=== PATIENT | female | born 1950 | race Caucasian/White ===

== ENCOUNTER 2024-06-28 17:21 | Inpatient (IN) | payer MEDICAID, OTHER ==
[~2024-06-28] VITALS: Ht 168.9 cm; Wt 62.7 kg
[2024-06-28 18:40] LABS: Basophils # (auto) 0.1 10 ^3/uL (0-0.2); Basophils % (auto) 0.8 % (0.0-2.0); Eosinophils # (auto) 0.6 10 ^3/uL (0-0.8); Eosinophils % (auto) 4.4 % (0.0-7.0); Hematocrit 39.3 % (36.0-46.0); Hemoglobin 12.7 g/dL (12.2-16.2); Lymphocytes # (auto) 1.5 10 ^3/uL (0.4-5.4); Lymphocytes % (auto) 11.6 % (10.0-50.0); Mean Corpuscular Hemoglobin 29.6 pg (28.0-32.0); Mean Corpuscular Hgb Conc. 32.4 g/dL (32.0-36.0); Mean Corpuscular Volume 91.5 fL (80.0-100.0); Monocytes # (auto) 0.8 10 ^3/uL (0-1.3); Monocytes % (auto) 6.4 % (0.0-12.0); Neutrophils # (auto) 10.1 10 ^3/uL (1.6-8.6); Neutrophils % (auto) 76.8 % (37.0-80.0); Red Cell Distribution Width 14.1 % (11.8-14.3); White Blood Cell 13.1 10^3/uL (4.4-10.8)
[2024-06-28 18:57] LABS: Alanine Aminotransferase 31 U/L (7-40); Albumin 4.3 g/dL (3.2-4.8); Alkaline Phosphatase 194 U/L (46-116); Anion Gap 13 (5-15); Aspartate Aminotransferase 23 U/L (13-40); BUN/Creatinine Ratio 29.5 (10.0-20.0); Blood Urea Nitrogen 78 mg/dL (9-23); Calcium 10.3 mg/dL (8.7-10.4); Carbon Dioxide 14 mmol/L (20-30); Chloride 103 mmol/L (98-107); Glucose 221 mg/dL (74-106); Potassium 5.3 mmol/L (3.5-5.1); Sodium 130 mmol/L (136-145)
[2024-06-28 18:58] LABS: Bilirubin, Total 0.4 mg/dL (0.2-1.0); Total Protein 7.8 g/dL (5.7-8.2)
[2024-06-28 19:40] VITALS: PULSE 103; RESP 16; O2SAT 95
[2024-06-28] MEDS: ONDANSETRON HCL 4 MG/2 ML VIAL IV ONE (19:53)
[2024-06-28] MEDS: SODIUM CHLORIDE 0.9% 1,000 ML IV ONE (19:53)
[2024-06-28] MEDS: MORPHINE SULFATE INJ 2 MG/ml SYRG IV ONE (19:59)
[2024-06-28] MEDS ORDERED: DEXTROSE (50%) 50ML SYRG IV PRN (22:00)
[2024-06-28] MEDS: ACCU-CHEK COMFORT CURVE STRIP VI SCH (22:00)
[2024-06-28] MEDS ORDERED: DOCUSATE SOD 100 MG CAP PO PRN (22:00)
[2024-06-28] MEDS: SODIUM CHLOR 0.9% PF (SALINE LOCK) 10ML VIAL/SYR IV SCH (22:31)
[2024-06-28] MEDS: LACTATED RINGER'S 1,000 ML IV ONE (22:31)
[2024-06-28] MEDS: InsuLIN REG 1unit/0.01ml Soln (100units/ml) SC SCH (22:33)
[2024-06-28 22:43] LABS: Chloride 105 mmol/L (98-107); Potassium 5.1 mmol/L (3.5-5.1); Sodium 133 mmol/L (136-145)
[2024-06-28 22:44] LABS: Anion Gap 12 (5-15); Calcium 9.7 mg/dL (8.7-10.4); Carbon Dioxide 16 mmol/L (20-30)
[2024-06-28 22:49] LABS: Glucose 245 mg/dL (74-106)
[2024-06-28 23:15] LABS: Blood Urea Nitrogen 98 mg/dL (9-23)
[2024-06-28] MEDS: HYDROcodone-ACET 5/325MG TAB PO PRN (23:47)
[2024-06-29 04:00] VITALS: BP 115/63; PULSE 83; RESP 20; TEMP 97.7; O2SAT 100
[2024-06-29] MEDS ORDERED: INSREG3 (05:46)
[2024-06-29] MEDS ORDERED: PANT40T PO (05:46)
[2024-06-29] MEDS ORDERED: SPIR100T4 PO (05:46)
[2024-06-29] MEDS ORDERED: INSUINJ37 SC (05:46)
[2024-06-29] MEDS ORDERED: SULF1TAB75 PO (05:46)
[2024-06-29] MEDS ORDERED: [UNRECOGNIZED DRUG - CODE] (05:46)
[2024-06-29] MEDS ORDERED: HEP5000I SC (05:46)
[2024-06-29] MEDS ORDERED: ONDA-188 PO (06:11)
[2024-06-29] MEDS ORDERED: OXY5T PO (06:11)
[2024-06-29] MEDS ORDERED: SCOP1DIS9 TOP (06:11)
[2024-06-29 08:00] VITALS: BP 111/76; PULSE 99; RESP 17; TEMP 97.6; O2SAT 98
[2024-06-29] MEDS: SODIUM CHLORIDE 0.9% 1,000 ML IV SCH (12:41)
[2024-06-29 13:01] VITALS: BP 108/66; PULSE 102; RESP 17; TEMP 97.5; O2SAT 99
[2024-06-29 16:07] LABS: Basophils # (auto) 0.1 10 ^3/uL (0-0.2); Basophils % (auto) 0.9 % (0.0-2.0); Eosinophils # (auto) 0.6 10 ^3/uL (0-0.8); Lymphocytes # (auto) 1.2 10 ^3/uL (0.4-5.4); Lymphocytes % (auto) 10.4 % (10.0-50.0); Mean Corpuscular Hemoglobin 30.2 pg (28.0-32.0); Mean Corpuscular Hgb Conc. 33.3 g/dL (32.0-36.0); Mean Corpuscular Volume 90.6 fL (80.0-100.0); Monocytes # (auto) 0.7 10 ^3/uL (0-1.3); Monocytes % (auto) 6.1 % (0.0-12.0); Neutrophils # (auto) 8.6 10 ^3/uL (1.6-8.6); Neutrophils % (auto) 77.6 % (37.0-80.0); Red Blood Cells 3.64 10^6/uL (4.0-5.20); Red Cell Distribution Width 13.8 % (11.8-14.3); White Blood Cell 11.1 10^3/uL (4.4-10.8)
[2024-06-29 16:21] LABS: Chloride 109 mmol/L (98-107); Potassium 4.9 mmol/L (3.5-5.1); Sodium 137 mmol/L (136-145)
[2024-06-29 16:22] LABS: Anion Gap 8 (5-15); Calcium 9.4 mg/dL (8.7-10.4); Carbon Dioxide 20 mmol/L (20-30)
[2024-06-29 16:27] LABS: BUN/Creatinine Ratio 37.3 (10.0-20.0); Glucose 141 mg/dL (74-106)
[2024-06-29 16:28] LABS: Alanine Aminotransferase 22 U/L (7-40); Albumin 3.7 g/dL (3.2-4.8); Alkaline Phosphatase 142 U/L (46-116); Anion Gap 9 (5-15); Aspartate Aminotransferase 13 U/L (13-40); BUN/Creatinine Ratio 37.5 (10.0-20.0); Bilirubin, Total 0.4 mg/dL (0.2-1.0); Calcium 9.6 mg/dL (8.7-10.4); Carbon Dioxide 19 mmol/L (20-30); Chloride 110 mmol/L (98-107); Glucose 142 mg/dL (74-106); Magnesium 1.9 mg/dL (1.6-2.6); Potassium 4.8 mmol/L (3.5-5.1); Sodium 138 mmol/L (136-145); Total Protein 6.5 g/dL (5.7-8.2)
[2024-06-29 16:32] LABS: Blood Urea Nitrogen 63 mg/dL (9-23)
[2024-06-29 16:33] LABS: Blood Urea Nitrogen 63 mg/dL (9-23)
[2024-06-29 17:10] VITALS: BP 107/59; PULSE 92; RESP 17; TEMP 97.9; O2SAT 96
[2024-06-29] MEDS: ONDANSETRON HCL 4 MG/2 ML VIAL IV PRN (18:49)
[2024-06-29 21:00] VITALS: BP 103/64; PULSE 101; RESP 18; TEMP 98.3; O2SAT 95
[2024-06-30 06:14] LABS: Basophils # (auto) 0.1 10 ^3/uL (0-0.2); Basophils % (auto) 0.6 % (0.0-2.0); Eosinophils # (auto) 0.7 10 ^3/uL (0-0.8); Hematocrit 28.7 % (36.0-46.0); Hemoglobin 9.8 g/dL (12.2-16.2); Lymphocytes # (auto) 1.7 10 ^3/uL (0.4-5.4); Lymphocytes % (auto) 18.2 % (10.0-50.0); Mean Corpuscular Hemoglobin 30.7 pg (28.0-32.0); Mean Corpuscular Hgb Conc. 34.2 g/dL (32.0-36.0); Mean Corpuscular Volume 89.9 fL (80.0-100.0); Monocytes # (auto) 0.8 10 ^3/uL (0-1.3); Monocytes % (auto) 8.4 % (0.0-12.0); Neutrophils # (auto) 5.9 10 ^3/uL (1.6-8.6); Neutrophils % (auto) 64.8 % (37.0-80.0); Red Blood Cells 3.19 10^6/uL (4.0-5.20); Red Cell Distribution Width 13.7 % (11.8-14.3); White Blood Cell 9.1 10^3/uL (4.4-10.8)
[2024-06-30 06:22] LABS: Alanine Aminotransferase 17 U/L (7-40); Albumin 3.3 g/dL (3.2-4.8); Alkaline Phosphatase 127 U/L (46-116); Anion Gap 6 (5-15); Aspartate Aminotransferase 12 U/L (13-40); BUN/Creatinine Ratio 34.1 (10.0-20.0); Calcium 9.4 mg/dL (8.7-10.4); Carbon Dioxide 20 mmol/L (20-30); Chloride 112 mmol/L (98-107); Glucose 129 mg/dL (74-106); Magnesium 1.8 mg/dL (1.6-2.6); Sodium 138 mmol/L (136-145)
[2024-06-30 06:23] LABS: Bilirubin, Total 0.4 mg/dL (0.2-1.0)
[2024-06-30 06:27] LABS: Blood Urea Nitrogen 45 mg/dL (9-23)
[2024-06-30 08:30] VITALS: BP 105/64; PULSE 90; RESP 17; TEMP 98.3; O2SAT 97
[2024-06-30] MEDS ORDERED: TPN PER PHARMACY 0 ML IV SCH (11:00)
[2024-06-30] MEDS ORDERED: DEXTROSE (50%) 50ML SYRG IV SCH (11:30)
[2024-06-30] MEDS: ACCU-CHEK COMFORT CURVE STRIP VI SCH (12:09)
[2024-06-30] MEDS: InsuLIN REG 1unit/0.01ml Soln (100units/ml) SC SCH (12:13)
[2024-06-30 13:00] VITALS: BP 103/63; PULSE 97; RESP 17; TEMP 98.3; O2SAT 95
[2024-06-30 17:00] VITALS: BP 111/58; PULSE 99; RESP 17; TEMP 98.5; O2SAT 97
[2024-06-30] MEDS: TPN PER PHARMACY IV NR (20:08)
[2024-06-30 21:00] VITALS: BP 112/67; PULSE 96; RESP 19; TEMP 98.5; O2SAT 97
[2024-06-30] MEDS: ACETAMINOPHEN 325 MG TAB PO PRN (23:36)
[2024-06-30 23:53] LABS: Urine Blood Negative /uL (Negative); Urine Clarity Clear (Clear); Urine Color Light-Yellow (Yellow); Urine Protein, UAD Negative (Negative); Urine Specific Gravity 1.014 (1.001-1.035); Urine Urobilinogen Normal (Negative); Urine pH 5.5 (5.0-9.0)
[2024-07-01 01:00] VITALS: BP 97/58; PULSE 96; RESP 18; TEMP 98.6; O2SAT 96
[2024-07-01 05:00] VITALS: BP 108/62; PULSE 89; RESP 19; TEMP 98.2; O2SAT 100
[2024-07-01 06:40] LABS: Alanine Aminotransferase 17 U/L (7-40); Alkaline Phosphatase 101 U/L (46-116); Anion Gap 6 (5-15); Calcium 8.6 mg/dL (8.7-10.4); Carbon Dioxide 19 mmol/L (20-30); Chloride 111 mmol/L (98-107); Glucose 187 mg/dL (74-106); Magnesium 1.5 mg/dL (1.6-2.6); Potassium 4.4 mmol/L (3.5-5.1); Sodium 136 mmol/L (136-145)
[2024-07-01 06:41] LABS: Albumin 2.9 g/dL (3.2-4.8); Aspartate Aminotransferase 13 U/L (13-40); Bilirubin, Total 0.4 mg/dL (0.2-1.0); Phosphorus 2.4 mg/dL (2.4-5.1); Total Protein 5.5 g/dL (5.7-8.2)
[2024-07-01 06:47] LABS: Blood Urea Nitrogen 24 mg/dL (9-23)
[2024-07-01 07:12] LABS: BUN/Creatinine Ratio 23.5 (10.0-20.0)
[2024-07-01 08:00] VITALS: BP 128/73; PULSE 88; RESP 15; TEMP 98.2; O2SAT 92
[2024-07-01] MEDS: MAGNESIUM SULFATE 1GM/100ML 100 ML IV ONE (11:27)
[2024-07-01 12:02] VITALS: BP 103/65; PULSE 104; RESP 16; TEMP 98.4; O2SAT 98
[2024-07-01] MEDS: SODIUM PHOSPHATES 20 MEQ in SODIUM CHL 0.9% 100 ML IV ONE (12:54)
[2024-07-01 17:13] VITALS: BP 101/52; PULSE 93; RESP 16; TEMP 97.9; O2SAT 99
[2024-07-01] MEDS: TPN PER PHARMACY IV NR (20:12)
[2024-07-01 21:00] VITALS: BP 106/66; PULSE 90; RESP 18; TEMP 98.1; O2SAT 100
[2024-07-02 07:43] LABS: Alanine Aminotransferase 16 U/L (7-40); Aspartate Aminotransferase 11 U/L (13-40); Glucose 170 mg/dL (74-106); Magnesium 1.9 mg/dL (1.6-2.6); Phosphorus 2.8 mg/dL (2.4-5.1)
[2024-07-02 07:44] LABS: Bilirubin, Total 0.4 mg/dL (0.2-1.0); Chloride 108 mmol/L (98-107); Potassium 4.1 mmol/L (3.5-5.1); Sodium 136 mmol/L (136-145); Total Protein 5.4 g/dL (5.7-8.2)
[2024-07-02 07:49] LABS: Calcium 8.8 mg/dL (8.7-10.4)
[2024-07-02 07:53] LABS: Alkaline Phosphatase 98 U/L (46-116)
[2024-07-02 08:00] VITALS: PULSE 99; RESP 16; O2SAT 97
[2024-07-02 08:23] LABS: Anion Gap 8 (5-15); Carbon Dioxide 20 mmol/L (20-30)
[2024-07-02 08:24] LABS: BUN/Creatinine Ratio 25.8 (10.0-20.0); Blood Urea Nitrogen 23 mg/dL (9-23)
[2024-07-02 09:00] VITALS: BP 124/60; PULSE 99; RESP 16; TEMP 98.4; O2SAT 97
[2024-07-02 12:14] VITALS: BP 117/75; PULSE 61; RESP 18; TEMP 98.5; O2SAT 95
[2024-07-02 16:51] VITALS: BP 128/78; PULSE 79; RESP 18; TEMP 98.4; O2SAT 98
[2024-07-02] MEDS: TPN PER PHARMACY IV NR (20:00)
[2024-07-02 21:00] VITALS: BP 112/74; PULSE 77; RESP 16; TEMP 98; O2SAT 98
[2024-07-03] VITALS (7 sets, daily range): BP systolic 105–138; BP diastolic 67–89; PULSE 80–101; RESP 15–18; TEMP 97.9–98.7; O2SAT 94–100
[2024-07-03 06:54] LABS: Alanine Aminotransferase 19 U/L (7-40); Alkaline Phosphatase 109 U/L (46-116); Anion Gap 6 (5-15); BUN/Creatinine Ratio 27.6 (10.0-20.0); Blood Urea Nitrogen 24 mg/dL (9-23); Carbon Dioxide 22 mmol/L (20-30); Chloride 107 mmol/L (98-107); Glucose 188 mg/dL (74-106); Magnesium 1.9 mg/dL (1.6-2.6); Potassium 4.3 mmol/L (3.5-5.1); Sodium 135 mmol/L (136-145)
[2024-07-03 06:55] LABS: Albumin 3.2 g/dL (3.2-4.8); Aspartate Aminotransferase 13 U/L (13-40)
[2024-07-03 06:56] LABS: Bilirubin, Total 0.4 mg/dL (0.2-1.0); Phosphorus 3.2 mg/dL (2.4-5.1); Total Protein 5.7 g/dL (5.7-8.2)
[2024-07-03] MEDS ORDERED: PANC1CAP48 PO (11:08)
== END 2024-07-03 20:17 | disposition home or self-care (01) | DRG 640 ==
LOC: ER 17:21 → WEST WING 21:54 → OVERFLOW 21:54 → WEST WING 06-29 03:59
PROVIDERS: ADMIT Internal Medicine; ATTEND Internal Medicine Geriatric Medicine
DX: E86.0 Dehydration (principal); N17.0 Acute kidney failure with tubular necrosis; E87.1 Hypo-osmolality and hyponatremia; E87.5 Hyperkalemia; E11.65 Type 2 diabetes mellitus with hyperglycemia; Z90.411 Acquired partial absence of pancreas; Z85.07 Personal history of malignant neoplasm of pancreas; Z79.4 Long term (current) use of insulin; Z79.899 Other long term (current) drug therapy; Z80.1 Family history of malignant neoplasm of trachea, bronchus and lung; Z83.3 Family history of diabetes mellitus
CPT/HCPCS: 36415; 74176; 76775; 80048; 80053; 81003; 82962; 83735; 84100; 84478; 85025; 87081; 96365; 96375; G0378; J1815; J2405

== ENCOUNTER 2024-10-17 10:08 | Inpatient (IN) | payer OTHER ==
[~2024-10-17] VITALS: Ht 167.6 cm; Wt 61.4 kg
[~2024-10-17 10:08] MED LIST: INSREG3; INSUINJ37 SC; ONDA-188 PO; OXY5T PO; PANC1CAP48 PO; PANT40T PO; SCOP1DIS9 TOP; SPIR100T4 PO
--- NOTE | 2024-10-17 10:37 | ECG ---
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
[2024-10-17 10:50] VITALS: PULSE 130; RESP 18; O2SAT 100
[2024-10-17] MEDS: SODIUM CHLORIDE 0.9% 1,000 ML IV ONE ×3 (11:00→14:30)
--- NOTE | 2024-10-17 11:01 | ED.PDOC ---
GI ASSESSMENT HPI Comments 74-year-old female with past medical history of pancreatic cancer with status post Whipple's surgery on June 06, type 2 diabetes mellitus, pancreatic insufficiency presented with chief complaint of persistent nausea and not able to tolerate any food, associated vomiting which is "ugly green in color". She mentioned that she started chemotherapy for pancreatic cancer on October 05 and she had the symptoms after that. She called her oncologist yesterday, who asked her to come to the ED for the persistent nausea/vomiting. She also mentioned complaints of lightheadedness and dark brown colored urine. She currently denied any chest pain, palpitations, shortness for breath, headaches. She is alert and oriented. She was found to be tachycardic, EKG revealed SVT. She did not known that she had tachycardia and did not have any symptoms of palpitation. Past medical history Childhood murmur, pancreatic cancer with status post Whipple's surgery on June 06, type 2 diabetes mellitus, pancreatic insufficiency Past surgical history Whipple procedure done on June 06, 2024 Medication history pancreatic enzymes, ondasetron, pantoprazole Allergic history no known allergies ROS Constitutional: Lightheadedness No: Fever, Chills, Sweats, Weakness, Malaise, Other Respiratory: No: Cough, Dry, Shortness of breath, SOB with excertion, Wheezing, Hemoptysis, Pleuritic Pain, Sputum, Wheezing, Other Cardiovascular: No: Chest Pain, Palpitations, Orthopnea, Paroxysmal Noc. Dyspnea, Edema, Lt Headedness, Other Gastrointestinal: Intractable nausea/vomiting, left upper quadrant pain shifting positions, but no radiation to chest or back No: Nausea, Vomiting, Abdominal Pain, Diarrhea, Constipation, Melena, Hematochezia, Other Musculoskeletal: No: other, neck pain, shoulder pain, arm pain, back pain, hand pain, leg pain, foot pain Neurological:; No: Weakness, Numbness, Incoordination, Change in speech, Confusion, Seizures Examination General Appearance: Alert, Oriented X3, Cooperative, No acute distress HEENT: EOMI Respiratory: Clear to auscultation, Normal air movement Cardiovascular: Regular rate, Normal S1, Normal S2 Abdominal: Soft, abdomen nodule on palpation which is mobile, surgical scar seen Extremities: No cyanosis, No edema, Normal pulses, No tenderness/swelling Neuro: Normal speech and tone Attestation note: Dr. Arias: I was the supervising attending for this ED encounter. Please see the resident's notes. I was available for questions and consultations. I have personally seen and evaluated this patient. MDM: Patient presented with the above HPI.---cardiac---workup was initiated. patient was found with the above mentioned diagnosis. Patient was given: Fluids, Zofran Patient ED course and VS have been stabilized. Patient has been reassessed in the ED and remained in a stable condition. Patient SVT improved to not sinus rhythm with fluid hydration only. Pertinent incidental findings were discussed with the patient and/or family. Patient/family voices understanding and is agreeable with plan. Patient has been observed in the ED adequate length of time to insure improvement/stability. patient was admitted to the medicine team for further evaluation and treatment of their presentation. All the reports of any imaging studies that were ordered by myself were reviewed by myself. Chief Complaint: Nausea/Vomiting Time Seen by MD: 10:14 Primary Care Provider: OOA Reviewed Notes: Nurses Notes, Allergies Allergies: Coded Allergies: NO KNOWN ALLERGIES (Unverified , 06/28/24) Home Meds Active Scripts Potassium Chloride (Klor-Con 10) 10 Meq Tab, 10 MEQ PO DAILY, #10 TAB Prov:RAMA MAGALLON MD 10/24/24 Magnesium Oxide (MAGNESIUM OXIDE) 400 Mg Tab, 1 TAB PO DAILY, #10 TAB 0 Refills Prov:RAMA MAGALLON MD 10/24/24 Hydrocodone-Acetaminophen (Hydrocodone Bitartrate/AC 5-325 mg) 1 Tab Tab, 1 TAB PO Q6HP PRN, #30 TAB Prov:RAMA MAGALLON MD 10/24/24 Pancreatic Enzymes (Pancreaze) 16,800 [place], [address] UNT PO TID for 30 Days, #90 CAP Prov:RAMA MAGALLON MD 07/03/24 Reported Medications Ondansetron HCl (Ondansetron Hydrochloride) 4 Mg Tab, 1 TAB PO Q8HPRN PRN for NAUSEA / VOMITING 06/29/24 Pantoprazole Sodium Sesquihydr (Pantoprazole Sodium) 40 Mg Tab, 1 TAB PO DAILY 06/29/24 Discontinued Reported Medications Oxycodone Hcl (OXYCODONE HCL) 5 Mg Tb, 1 TAB PO Q8HPRN PRN for severe pain 06/29/24 Scopolamine (Scopolamine) 1 Mg/3 Days Dis, 1 PATCH TOP Q72HR 06/29/24 Spironolactone (Spironolactone) 100 Mg Tab, 50 MG PO DAILY 06/29/24 Insulin Glargine (Lantus Solostar) 100 Unit/Ml Inj, 6 UNITS SC HS 06/29/24 Insulin Regular (Human) (Humulin R) 100 Unit/Ml Inj 06/29/24 Information Source: Patient, Emergency Med Personnel Mode of Arrival: Wheelchair Past Medical History PAST MEDICAL HISTORY: Cancer 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 Was a procedure done?: No GI differential Dx Differential Diagnosis: Cholangitis, Cholecystitis, Gastritis/PUD, Gastroenteritis, Pancreatitis, UTI, Dehydration, Electrolyte Imbalance, Hypovolemia, Other Other Differential Diagnosis Includes but not limited to thyroid disease, encephalopathy, electrolyte abnormality, sepsis, infection, intracranial pathology, drug adverse effects, arrhythmia, kidney insufficiency, ACS, CVA, malignancy, anemia X-Ray, Labs, Meds, VS Vital Signs Date Time Temp Pulse Resp B/P (MAP) Pulse Ox O2 Delivery O2 Flow Rate FiO2 10/17/24 14:00 112 16 133/84 (100) 94 10/17/24 12:00 115 10/17/24 12:00 111 14 117/70 (86) 95 10/17/24 11:25 115 10/17/24 10:50 130 18 100 Room Air* 0 21 10/17/24 10:50 97.4 130 16 109/74 (86) 100 97.4 10/17/24 10:30 157 10/17/24 10:29 97.4 154 14 102/73 (83) 98 Lab Test 10/17/24 13:09 10/17/24 10:50 10/17/24 10:27 Range/Units Lactic Acid Level 1.4 2.5 *H 0.4-2.0 mmol/L Troponin I High Sensitivity 5 3 L </=34 ng/L White Blood Count 6.2 4.4-10.8 10^3/uL Red Blood Count 5.03 4.0-5.20 10^6/uL Hemoglobin 14.3 12.2-16.2 g/dL Hematocrit 42.7 36.0-46.0 % Mean Corpuscular Volume 84.7 80.0-100.0 fL Mean Corpuscular Hemoglobin 28.3 28.0-32.0 pg Mean Corpuscular Hemoglobin Concent 33.4 32.0-36.0 g/dL Red Cell Distribution Width 14.9 H 11.8-14.3 % Platelet Count 230 140-450 10^3/uL Mean Platelet Volume 9.0 6.9-10.8 fL Neutrophils (%) (Auto) 60.2 37.0-80.0 % Lymphocytes (%) (Auto) 22.6 10.0-50.0 % Monocytes (%) (Auto) 14.2 H 0.0-12.0 % Eosinophils (%) (Auto) 3.0 0.0-7.0 % Basophils (%) (Auto) 0.0 0.0-2.0 % Neutrophils # (Auto) 3.7 1.6-8.6 10 ^3/uL Lymphocytes # (Auto) 1.4 0.4-5.4 10 ^3/uL Monocytes # (Auto) 0.9 0-1.3 10 ^3/uL Eosinophils # (Auto) 0.2 0-0.8 10 ^3/uL Basophils # (Auto) 0 0-0.2 10 ^3/uL Nucleated Red Blood Cells 0.1 % Sodium Level 139 136-145 mmol/L Potassium Level 3.9 3.5-5.1 mmol/L Chloride Level 102 98-107 mmol/L Carbon Dioxide Level 22 20-31 mmol/L Anion Gap 15 5-15 Blood Urea Nitrogen 43 H 9-23 mg/dL Creatinine 1.56 H 0.550-1.02 mg/dL Glomerular Filtration Rate Calc 34 >90 mL/min BUN/Creatinine Ratio 27.6 H 10.0-20.0 Serum Glucose 124 H 74-106 mg/dL Calcium Level 10.0 8.7-10.4 mg/dL Magnesium Level 2.5 1.6-2.6 mg/dL Total Bilirubin 1.0 0.2-1.0 mg/dL Aspartate Amino Transferase (AST) 120 H 13-40 U/L Alanine Aminotransferase (ALT) 175 H 7-40 U/L Alkaline Phosphatase 110 46-116 U/L B-Type Natriuretic Peptide 10.55 0-100 pg/mL Total Protein 7.0 5.7-8.2 g/dL Albumin 4.0 3.2-4.8 g/dL Thyroid Stimulating Hormone (TSH) 1.44 0.55-4.78 uIU/mL POC Glucose 117 H 70-106 mg/dl [facility] [id number] [place] [address] Ph: [phone] DIAGNOSTIC IMAGING Diagnostic Imaging Report : [id number] Signed PATIENT: JARAD BEJARANO ACCT: [id number] UNIT: [id number] : 1950 LOC: ER ROOM / BED: / AGE / SEX: 74 / F ADM STATUS: REG ER SERVICE 1125 ORDERING PHYSICIAN: REILLY ARIAS DO PROCEDURE(s): ABPL - CT AB PEL WO CON-NO ORAL OR IV REASON: n/v ORDER NUMBER(s): [id number], ACCESSION NUMBER(s): [id number] CT ABDOMEN AND PELVIS WITHOUT CONTRAST CLINICAL HISTORY: n/v TECHNIQUE: Multiple contiguous axial images of the abdomen and pelvis without intravenous contrast. The images were reformatted degenerate coronal and sagitt al reconstructions. All CT scans at this medical facility are performed using dose modulation techniques as appropriate to a performed exam including the following:Automated exposure control was utilized; adjustment of the MA and/or KV according to patient size; and use of iterative reconstruction technique. Radiation Dose Information: CT Dose: CTDI volume is 6 mGy. Dose-length product is 351 mGy*cm Comparison: CT CT AB PEL WO CON-NO ORAL OR IV on DOS: 06/28/24 FINDINGS: Evaluation of the abdomen and pelvis is limited without intravenous contrast. Redemonstrated are postsurgical changes likely related to Whipple's procedure. There are again multiple surgical clips in the region of the head and uncinate of the pancreas. The visualized body and tail of the pancreas grossly appear unremarkable. There has been removal of the previously seen stent in the pancreatic duct. The gallbladder is surgically absent. There is stable pneumobilia which is likely postsurgical. There is diffuse fatty infiltration of the liver. The kidneys, adrenal glands, and spleen appear within normal limits. There is no gross evidence of abdominal lymphadenopathy. There is no free fluid or free air. There are anastomotic sutures seen in the small bowel. There are no dilated small or large bowel loops. There is a broad neck midline ventral hernia containing intra-abdominal fat and loop of small bowel. There is no evidence of bowel herniation or strangulation. The abdominal aorta and IVC appear within normal limits. The bladder appears unremarkable. The uterus is retroverted .. There is no gross evidence of a pelvic mass or fluid collection. Lung bases are clear. There is no acute osseous abnormality. There is scoliotic curvature of the thoracolumbar spine with multilevel degenerative changes. IMPRESSION: 1. Redemonstrated are postsurgical changes likely related to Whipple's procedure. There are again multiple surgical clips in the region of the head and uncinate process of pancreas. The visualized body and tail the pancreas grossly appear unremarkable. There has been removal of previously seen stent in the pancreatic duct. 2. Cholecystectomy with likely postsurgical pneumobilia. 3. Hepatic steatosis. 4. Broad neck midline ventral hernia containing intra-abdominal fat and loop of small bowel. There is no evidence of bowel obstruction or strangulation. HS:Y ATED BY: OLEG DEGROOT MD DICTATED DATE/TIME: 10/17/241254 SIGNED BY: OLEG DEGROOT MD SIGNED DATE/TIME: 10/17/24 125 CC: [place] [id number] Ph: [phone] DIAGNOSTIC IMAGING Diagnostic Imaging Report : [id number] Signed PATIENT: JARAD BEJARANO ACCT: [id number] UNIT: [id number] : 1950 LOC: ER ROOM / BED: / AGE / SEX: 74 / F ADM STATUS: REG ER SERVICE 1125 ORDERING PHYSICIAN: REILLY ARIAS DO PROCEDURE(s): ABPL - CT AB PEL WO CON-NO ORAL OR IV REASON: n/v ORDER NUMBER(s): [id number], ACCESSION NUMBER(s): [id number] CT ABDOMEN AND PELVIS WITHOUT CONTRAST CLINICAL HISTORY: n/v TECHNIQUE: Multiple contiguous axial images of the abdomen and pelvis without intravenous contrast. The images were reformatted degenerate coronal and sagittal reconstructions. All CT scans at this medical facility are performed using dose modulation techniques as appropriate to a performed exam including the following:Automated exposure control was utilized; adjustment of the MA and/or KV according to patient size; and use of iterative reconstruction technique. Radiation Dose Information: CT Dose: CTDI volume is 6 mGy. Dose-length product is 351 mGy*cm Comparison: CT CT AB PEL WO CON-NO ORAL OR IV on DOS: 06/28/24 FINDINGS: Evaluation of the abdomen and pelvis is limited without intravenous contrast. Redemonstrated are postsurgical changes likely related to Whipple's procedure. There are again multiple surgical clips in the region of the head and uncinate of the pancreas. The visualized body and tail of the pancreas grossly appear unremarkable. There has been removal of the previously seen stent in the pancreatic duct. The gallbladder is surgically absent. There is stable pneumobilia which is likely postsurgical. There is diffuse fatty infiltration of the liver. The kidneys, adrenal glands, and spleen appear within normal limits. There is no gross evidence of abdominal lymphadenopathy. There is no free fluid or free air. There are anastomotic sutures seen in the small bowel. There are no dilated small or large bowel loops. There is a broad neck midline ventral hernia containing intra-abdominal fat and loop of small bowel. There is no evidence of bowel herniation or strangulation. The abdominal aorta and IVC appear within normal limits. The bladder appears unremarkable. The uterus is retroverted .. There is no gross evidence of a pelvic mass or fluid collection. Lung bases are clear. There is no acute osseous abnormality. There is scoliotic curvature of the thoracolumbar spine with multilevel degenerative changes. IMPRESSION: 1. Redemonstrated are postsurgical changes likely related to Whipple's procedure. There are again multiple surgical clips in the region of the head and uncinate process of pancreas. The visualized body and tail the pancreas grossly appear unremarkable. There has been removal of previously seen stent in the pancreatic duct. 2. Cholecystectomy with likely postsurgical pneumobilia. 3. Hepatic steatosis. 4. Broad neck midline ventral hernia containing intra-abdominal fat and loop of small bowel. There is no evidence of bowel obstruction or strangulation. HS:Y ATED BY: LOEG DEGROOT MD DICTATED DATE/TIME: 10/17/24 1255 SIGNED BY: OLEG DEGROOT MD SIGNED DATE/TIME: 10/17/24 125 CC: Time of 1ST Reevaluation: 12:44 (Patient's heart rate is sinus rhythm at this time after fluid hydration. Lactic acid is elevated we will add an additional normal saline bolus.) Reevaluation 1ST: Improved Patient Education/Counseling: Diagnosis, Treatment Family Education/Counseling: No Family Present Comments Patient presented with the above HPI.---dehydration, nausea and vomiting---workup was initiated. Patient's initial heart rate was in 150, EKG initially showed tachycardia with regular narrow complex QRS suggestive of SVT, was given IV fluids, after that heart rate improved to 90s and 100s. Patient was given: Fluids, Zofran, patient's lactic acid was elevated so We gave her Rocephin. Patient ED course and VS have been stabilized. Patient has been reassessed in the ED and remained in a stable condition. Pertinent incidental findings were discussed with the patient and/or family. Patient/family voices understanding and is agreeable with plan. Patient has been observed in the ED adequate length of time to insure improvement/stability. patient was admitted to the medicine team for further evaluation and treatment of their presentation. Patient needs hydration and further monitoring for tachycardia. All the reports of any imaging studies that were ordered by myself were reviewed by myself. Departure 1 Departure Time of Disposition: 11:28 Impression: Primary Impression: Nausea & vomiting Additional Impressions: SVT (supraventricular tachycardia) Dehydration Disposition: ADMITTED INPATIENT Admit to: Tele Condition: Guarded e-Prescriptions Potassium Chloride (Klor-Con 10) 10 Meq Tab 10 MEQ PO DAILY, #10 TAB Prov: RAMA MAGALLON MD 10/24/24 Magnesium Oxide (MAGNESIUM OXIDE) 400 Mg Tab 1 TAB PO DAILY, #10 TAB 0 Refills Prov: RAMA MAGALLON MD 10/24/24 Hydrocodone-Acetaminophen (Hydrocodone Bitartrate/AC 5-325 mg) 1 Tab Tab 1 TAB PO Q6HP PRN, #30 TAB Prov: RAMA MAGALLON MD 10/24/24 Discharged With: Self Critical Care Note Critical Care Time?: Yes (45 min-critical care time only) Stability Stability form required: No Heart Score Heart Score: Heart Score Response (Comments) Value History Slightly Suspicious 0 EKG Normal 0 Age >65 2 Risk Factors 1 or 2 risk factors 1 Troponin Normal limit 0 Total 3 SADAF RAMAN Oct 17, 2024 11:01 REILLY ARIAS DO Oct 17, 2024 12:45
[2024-10-17] MEDS: ONDANSETRON HCL 4 MG/2 ML VIAL IV ONE (11:06)
[2024-10-17] MEDS: ONDANSETRON HCL 4 MG/2 ML VIAL ONE (11:06)
[2024-10-17 11:14] LABS: Basophils # (auto) 0 10 ^3/uL (0-0.2); Eosinophils # (auto) 0.2 10 ^3/uL (0-0.8); Hematocrit 42.7 % (36.0-46.0); Hemoglobin 14.3 g/dL (12.2-16.2); Lymphocytes # (auto) 1.4 10 ^3/uL (0.4-5.4); Lymphocytes % (auto) 22.6 % (10.0-50.0); Mean Corpuscular Hemoglobin 28.3 pg (28.0-32.0); Mean Corpuscular Hgb Conc. 33.4 g/dL (32.0-36.0); Mean Corpuscular Volume 84.7 fL (80.0-100.0); Monocytes # (auto) 0.9 10 ^3/uL (0-1.3); Monocytes % (auto) 14.2 % (0.0-12.0); Neutrophils # (auto) 3.7 10 ^3/uL (1.6-8.6); Neutrophils % (auto) 60.2 % (37.0-80.0); Nucleated Red Blood Cells % 0.1 %; Platelet Count (auto) 230 10^3/uL (140-450); Red Blood Cells 5.03 10^6/uL (4.0-5.20); Red Cell Distribution Width 14.9 % (11.8-14.3); White Blood Cell 6.2 10^3/uL (4.4-10.8)
--- NOTE | 2024-10-17 11:25 | DVH ---
CHEST RADIOGRAPH Indication: SVT Technique: Single frontal view of the chest was obtained Comparison: None FINDINGS: Lines and Tubes: Right chest port catheter. Lungs: No focal consolidation. Pleura: No effusion. No pneumothorax. Cardiomediastinal contours: Unremarkable Bones: No acute osseous abnormality. IMPRESSION: No acute cardiopulmonary disease.
[2024-10-17 11:47] LABS: Alanine Aminotransferase 175 U/L (7-40); Alkaline Phosphatase 110 U/L (46-116); Anion Gap 15 (5-15); Aspartate Aminotransferase 120 U/L (13-40); BUN/Creatinine Ratio 27.6 (10.0-20.0); Blood Urea Nitrogen 43 mg/dL (9-23); Carbon Dioxide 22 mmol/L (20-31); Chloride 102 mmol/L (98-107); Glucose 124 mg/dL (74-106); Magnesium 2.5 mg/dL (1.6-2.6); Potassium 3.9 mmol/L (3.5-5.1); Sodium 139 mmol/L (136-145)
[2024-10-17 12:01] LABS: Lactic Acid w/Reflex 2.5 mmol/L (0.4-2.0)
--- NOTE | 2024-10-17 12:10 | ECG ---
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
--- NOTE | 2024-10-17 12:56 | DVH ---
CT ABDOMEN AND PELVIS WITHOUT CONTRAST CLINICAL HISTORY: n/v TECHNIQUE: Multiple contiguous axial images of the abdomen and pelvis without intravenous contrast. The images were reformatted degenerate coronal and sagittal reconstructions. All CT scans at this medical facility are performed using dose modulation techniques as appropriate t o a performed exam including the following:Automated exposure control was utilized; adjustment of the MA and/or KV according to patient size; and use of iterative reconstruction technique. Radiation Dose Information: CT Dose: CTDI volume is 6 mGy. Dose-length product is 351 mGy*cm Comparison: CT CT AB PEL WO CON-NO ORAL OR IV on DOS: 06/28/24 FINDINGS: Evaluation of the abdomen and pelvis is limited without intravenous contrast. Redemonstrated are postsurgical changes likely related to Whipple's procedure. There are again multi ple surgical clips in the region of the head and uncinate of the pancreas. The visualized body and ta il of the pancreas grossly appear unremarkable. There has been removal of the previously seen stent i n the pancreatic duct. The gallbladder is surgically absent. There is stable pneumobilia which is likely postsurgical. Ther e is diffuse fatty infiltration of the liver. The kidneys, adrenal glands, and spleen appear within normal limits. There is no gross evidence of abdominal lymphadenopathy. There is no free fluid or free air. There are anastomotic sutures seen in the small bowel. There are no dilated small or large bowel loop s. There is a broad neck midline ventral hernia containing intra-abdominal fat and loop of small madhavi l. There is no evidence of bowel herniation or strangulation. The abdominal aorta and IVC appear within normal limits. The bladder appears unremarkable. The uterus is retroverted .. There is no gross evidence of a pelvi c mass or fluid collection. Lung bases are clear. There is no acute osseous abnormality. There is scoliotic curvature of the thoracolumbar spine with m ultilevel degenerative changes. IMPRESSION: 1. Redemonstrated are postsurgical changes likely related to Whipple's procedure. There are again mul tiple surgical clips in the region of the head and uncinate process of pancreas. The visualized body and tail the pancreas grossly appear unremarkable. There has been removal of previously seen stent in the pancreatic duct. 2. Cholecystectomy with likely postsurgical pneumobilia. 3. Hepatic steatosis. 4. Broad neck midline ventral hernia containing intra-abdominal fat and loop of small bowel. There i s no evidence of bowel obstruction or strangulation. HS:Y
--- NOTE | 2024-10-17 14:29 | DVHHP2 ---
History of Present Illness Reason for Visit: Abdominal pain and nausea and vomiting History of Present Illness 74-year-old female with a history of pancreatic cancer status post Whipple surgery in May of this year, type 2 diabetes, pancreatic insufficiency who just started chemotherapy 3 weeks ago she had the 1st regimen and since then she started having abdominal pain nausea and vomiting. She has not been able to keep food down. She is tachycardic now blood pressure is on low side She appears dehydrated and dry in her mucous membranes GI: Other (Pancreatic cancer) Endocrine: Diabetes Past Surgical History: Other (Whipple) Review of Systems Allergies: Coded Allergies: NO KNOWN ALLERGIES (Unverified , 06/28/24) Medications Current Medications Medications Dose Ordered Sig/Shelley Route Start Time Stop Time Status Last Admin Dose Admin Nitroglycerin 0.4 mg Q5MINP PRN SL 10/17/24 14:30 UNV Morphine Sulfate 2 mg Q30M PRN IV 10/17/24 14:30 UNV Exam Vital Signs Vital Signs Date Time Temp Pulse Resp B/P (MAP) Pulse Ox O2 Delivery O2 Flow Rate FiO2 10/17/24 14:00 112 16 133/84 (100) 94 10/17/24 10:50 Room Air* 0 21 10/17/24 10:50 97.4 97.4 General Appearance: Alert, Oriented X3, Cooperative, mild distress Respiratory: Clear to auscultation Cardiovascular: Regular rate, Other (Tachycardic) Abdominal: Normal bowel sounds, Soft, Other (Generalized tenderness) Extremities: No edema Labs/Xrays Labs Test 10/17/24 13:09 10/17/24 10:50 10/17/24 10:27 Range/Units Lactic Acid Level 1.4 0.4-2.0 mmol/L Troponin I High Sensitivity 5 </=34 ng/L White Blood Count 6.2 4.4-10.8 10^3/uL Red Blood Count 5.03 4.0-5.20 10^6/uL Hemoglobin 14.3 12.2-16.2 g/dL Hematocrit 42.7 36.0-46.0 % Mean Corpuscular Volume 84.7 80.0-100.0 fL Mean Corpuscular Hemoglobin 28.3 28.0-32.0 pg Mean Corpuscular Hemoglobin Concent 33.4 32.0-36.0 g/dL Red Cell Distribution Width 14.9 H 11.8-14.3 % Platelet Count 230 140-450 10^3/uL Mean Platelet Volume 9.0 6.9-10.8 fL Neutrophils (%) (Auto) 60.2 37.0-80.0 % Lymphocytes (%) (Auto) 22.6 10.0-50.0 % Monocytes (%) (Auto) 14.2 H 0.0-12.0 % Eosinophils (%) (Auto) 3.0 0.0-7.0 % Basophils (%) (Auto) 0.0 0.0-2.0 % Neutrophils # (Auto) 3.7 1.6-8.6 10 ^3/uL Lymphocytes # (Auto) 1.4 0.4-5.4 10 ^3/uL Monocytes # (Auto) 0.9 0-1.3 10 ^3/uL Eosinophils # (Auto) 0.2 0-0.8 10 ^3/uL Basophils # (Auto) 0 0-0.2 10 ^3/uL Nucleated Red Blood Cells 0.1 % Sodium Level 139 136-145 mmol/L Potassium Level 3.9 3.5-5.1 mmol/L Chloride Level 102 98-107 mmol/L Carbon Dioxide Level 22 20-31 mmol/L Anion Gap 15 5-15 Blood Urea Nitrogen 43 H 9-23 mg/dL Creatinine 1.56 H 0.550-1.02 mg/dL Glomerular Filtration Rate Calc 34 >90 mL/min BUN/Creatinine Ratio 27.6 H 10.0-20.0 Serum Glucose 124 H 74-106 mg/dL Calcium Level 10.0 8.7-10.4 mg/dL Magnesium Level 2.5 1.6-2.6 mg/dL Total Bilirubin 1.0 0.2-1.0 mg/dL Aspartate Amino Transferase (AST) 120 H 13-40 U/L Alanine Aminotransferase (ALT) 175 H 7-40 U/L Alkaline Phosphatase 110 46-116 U/L B-Type Natriuretic Peptide 10.55 0-100 pg/mL Total Protein 7.0 5.7-8.2 g/dL Albumin 4.0 3.2-4.8 g/dL Thyroid Stimulating Hormone (TSH) 1.44 0.55-4.78 uIU/mL POC Glucose 117 H 70-106 mg/dl Assessment/Plan Assessment/Plan Dehydration Acute kidney injury due to dehydration, hemodynamically mediated Abdominal pain Pancreatic cancer Intractable nausea and vomiting Type 2 diabetes Pancreatic insufficiency Recent Whipple surgery Sinus tachycardia due to dehydration Plan Give IV fluids Glucerna supplement Pain control with Dilaudid p.r.n. Zofran p.r.n. Pepcid IV Full code Discussed with the family at the bedside Plan discussed with: Patient My Orders Orders - RAMA MAGALLON MD Procedure Category Date Status Time Admit ADMIT 10/17/24 Transmitted 14:[address] [facility] 10/17/24 Logged Sublingual (Ntrostat 14:[address] [facility] 10/17/24 Logged Injection 14:30 Stat Ekg For Chest [facility] 10/17/24 In Process Pain 14:16 Notify Md Of Changes [facility] 10/17/24 In Process From Base 14:16 Customer Advocate For [facility] 10/17/24 In Process 24 Hours 14:16 Emergency Dysrhythmia [facility] 10/17/24 In Process Protocol 14:16 Rhythm Strips Once [facility] 10/17/24 In Process Every Shift 14:16 Oxygen By Nasal RT 10/17/24 Transmitted Cannula 14:16 Date of Service: Oct 17, 2024 Billing Provider: RAMA MAGALLON MD Common Visit Codes: [id number] INP/OBS CARE (HIGH) RAMA MAGALLON MD Oct 17, 2024 14:29
[2024-10-17] MEDS ORDERED: MORPHINE SULFATE INJ 2 MG/ml SYRG IV PRN (14:30)
[2024-10-17] MEDS ORDERED: DEXTROSE (50%) 50ML SYRG IV PRN (14:30)
[2024-10-17] MEDS ORDERED: NITROGLYCERIN 0.4 MG SL TAB SL PRN (14:30)
[2024-10-17] MEDS: FAMOTIDINE (10MG/ML) 2ML VL IV ONE (15:47)
[2024-10-17] MEDS: InsuLIN REG 1unit/0.01ml Soln (100units/ml) SC SCH (17:00)
[2024-10-17] MEDS: ACCU-CHEK COMFORT CURVE STRIP VI SCH (17:03)
[2024-10-17 18:43] LABS: Urine Bacteria FEW /hpf (None Seen); Urine Blood Negative /uL (Negative); Urine Clarity Turbid (Clear); Urine Color Yellow (Yellow); Urine Protein, UAD 1+ (Negative); Urine Specific Gravity 1.024 (1.001-1.035); Urine Urobilinogen Normal (Negative); Urine WBC 1 /hpf (0 - 5)
[2024-10-17 20:19] VITALS: PULSE 96; RESP 18; O2SAT 94
[2024-10-17 20:46] VITALS: BP 125/63; PULSE 95; RESP 16; RESP 18; TEMP 98; O2SAT 97
[2024-10-18] VITALS (8 sets, daily range): BP systolic 123–132; BP diastolic 72–83; PULSE 94–125; RESP 16–18; TEMP 98–98.5; O2SAT 94–96
[2024-10-18] MEDS: ONDANSETRON HCL 4 MG/2 ML VIAL IV PRN (03:53)
[2024-10-18] MEDS: HYDROcodone-ACET 5/325MG TAB PO PRN (03:54)
[2024-10-18 06:11] LABS: Alanine Aminotransferase 114 U/L (7-40); Albumin 2.9 g/dL (3.2-4.8); Alkaline Phosphatase 78 U/L (46-116); Anion Gap 10 (5-15); Aspartate Aminotransferase 65 U/L (13-40); Calcium 8.2 mg/dL (8.7-10.4); Carbon Dioxide 21 mmol/L (20-31); Glucose 116 mg/dL (74-106); Potassium 2.9 mmol/L (3.5-5.1); Sodium 144 mmol/L (136-145)
[2024-10-18 06:12] LABS: BUN/Creatinine Ratio 31.9 (10.0-20.0); Lipase 20 U/L (12-53)
[2024-10-18 06:14] LABS: Bilirubin, Total 0.6 mg/dL (0.2-1.0); Total Protein 4.9 g/dL (5.7-8.2)
[2024-10-18 06:16] LABS: Blood Urea Nitrogen 29 mg/dL (9-23); Chloride 113 mmol/L (98-107)
[2024-10-18] MEDS: POTASSIUM CHL 20 Meq TABLET PO ONE (08:50)
[2024-10-18] MEDS: FAMOTIDINE (10MG/ML) 2ML VL IV SCH (09:00)
[2024-10-18 09:23] LABS: Hematocrit 34.2 % (36.0-46.0); Hemoglobin 11.4 g/dL (12.2-16.2); Mean Corpuscular Hemoglobin 28.4 pg (28.0-32.0); Mean Corpuscular Hgb Conc. 33.3 g/dL (32.0-36.0); Mean Corpuscular Volume 85.3 fL (80.0-100.0); Platelet Count (auto) 202 10^3/uL (140-450); Red Blood Cells 4.01 10^6/uL (4.0-5.20); Red Cell Distribution Width 14.4 % (11.8-14.3); White Blood Cell 4.4 10^3/uL (4.4-10.8)
[2024-10-18 09:25] LABS: Basophils % (manual) 0 (0.0-2.0); Blast Cells 0; Metamyelocytes % 0; Myelocytes % 0; Promyelocytes % 0; Reactive Lymphocytes 0
[2024-10-18 09:53] LABS: Band Neutrophils % (manual) 4; Eosinophils % (manual) 1 (0-7); Lymphocytes % (manual) 20 (10.0-50.0); Monocytes % (manual) 3 (0-12)
[2024-10-18 09:54] LABS: Platelet Estimate Adequate; RBC Morphology Normal
[2024-10-18] MEDS: LOPERAMIDE HCL 2 MG CAP/TAB PO PRN (21:35)
[2024-10-19] VITALS (8 sets, daily range): BP systolic 103–126; BP diastolic 71–78; PULSE 120–130; RESP 16–18; TEMP 97.2–98.2; O2SAT 95–96
--- NOTE | 2024-10-19 14:25 | DVHPN2 ---
Subjective Complains of diarrhea Still having abdominal pain Getting dizzy and lightheaded when she stands and walks Changes from previous H/P or p: Changes Objective Vitals Vital Signs Date Time Temp Pulse Resp B/P (MAP) Pulse Ox O2 Delivery O2 Flow Rate FiO2 10/19/24 13:00 97.2 125 17 126/75 (92) 95 97.2 10/19/24 08:00 Room Air* 0 21 Intake/Output Intake and Output 10/19/24 07:00 Intake Total 1295 ml Output Total 1 ml Balance 1294 ml Intake Oral 1295 ml Output Urine Total 1 ml # Voids 3 # Bowel Movements 5 General Appearance: Alert, Oriented X3 Lungs: Clear to auscultation, Normal air movement Cardiovascular: Regular rate, Normal S1, Normal S2 Abdomen: Normal bowel sounds, Soft, No tenderness Extremities: No edema Medications Current Medications Medications Dose Ordered Sig/Shelley Route Start Time Stop Time Status Last Admin Dose Admin Nitroglycerin 0.4 mg Q5MINP PRN SL 10/17/24 14:30 Morphine Sulfate 2 mg Q30M PRN IV 10/17/24 14:30 Famotidine 20 mg DAILY IV 10/18/24 10:00 10/19/24 09:01 20 MG Diagnostic Test (Pha) 1 strip ACHS 10/17/24 17:00 10/19/24 11:30 1 STRIP Insulin Human Regular ACHS SC 10/17/24 17:00 Dextrose 50 ml UD PRN IV 10/17/24 14:30 Acetaminophen/ Hydrocodone Bitart 1 tab Q6HPRN PRN PO 10/18/24 03:45 10/19/24 09:02 1 TAB Ondansetron HCl 4 mg Q6HPRN PRN IV 10/18/24 03:45 10/18/24 21:34 4 MG Loperamide HCl 2 mg PRN PRN PO 10/18/24 21:00 10/19/24 09:01 2 MG Laboratory Results Laboratory Tests 10/18/24 04:50 10/18/24 08:41 Urinalysis Test 10/17/24 17:45 Urine Color Yellow (Yellow) Urine Clarity Turbid (Clear) H Urine pH 6.0 (5.0-9.0) Urine Specific [place] 1.024 (1.001-1.035) Urine Protein 1+ (Negative) H Urine Ketones 1+ (Negative) H Urine Blood Negative /uL (Negative) Urine Nitrite Negative (Negative) Urine Bilirubin Negative (Negative) Urine Urobilinogen Normal mg/dL (Negative) Urine Leukocyte Esterase Negative /uL (Negative) Urine RBC 3 /hpf (0 - 4) Urine WBC 1 /hpf (0 - 5) Urine Squamous Epithelial Cells Mod /hpf (<5) Urine Bacteria Few /hpf (None Seen) H Urine Glucose Normal mg/dL (Normal) Microbiology Microbiology Date/Time Source Procedure Growth Status 10/18/24 03:15 Stool Clostridium difficile Toxin Assay - Final Complete Assessment/Plan Assessment/Plan Dehydration Acute kidney injury due to dehydration, hemodynamically mediated Abdominal pain Pancreatic cancer Intractable nausea and vomiting Type 2 diabetes Pancreatic insufficiency Recent Whipple surgery Sinus tachycardia due to dehydration Plan 10/18/2024: Give IV fluids Glucerna supplement Pain control with Dilaudid p.r.n. Zofran p.r.n. Pepcid IV Full code Discussed with the family at the bedside 10/19/2024: Add pancreatic enzymes Continue IV fluids Check the potassium and magnesium and replace as needed Pain management as needed Plan discussed with: Patient My Orders Orders - RAMA MAGALLON MD Procedure Category Date Status Time * Dietary Consult CONS 10/18/24 Transmitted 19:08 * Children Counselor CONS 10/19/24 Transmitted Consult Potassium LAB 10/19/24 Logged 14:11 Magnesium LAB 10/19/24 Logged 14:11 Pancreatic Enzymes PHA 10/19/24 Transmitted Capsule (Pancreaze Ca 18:00 Complete Blood Count LAB 10/20/24 Verified 04:00 Magnesium LAB 10/20/24 Verified 04:00 Comprehensive LAB 10/20/24 Verified Metabolic Panel 04:00 Date of Service: Oct 19, 2024 Billing Provider: RAMA MAGALLON MD Common Visit Codes: NOT BILLABLE RAMA MAGALLON MD Oct 19, 2024 14:25
[2024-10-19 15:51] LABS: Magnesium 1.9 mg/dL (1.6-2.6)
[2024-10-19 15:55] LABS: Potassium 2.5 mmol/L (3.5-5.1)
[2024-10-19] MEDS: MAGNESIUM SULFATE 1GM/100ML 100 ML IV SCH (16:52)
[2024-10-19] MEDS: POTASSIUM EFFERVESENT TAB 25 MEQ PO ONE (17:29)
[2024-10-19] MEDS: PANCREATIC ENZYMES 4200 UNIT CAP PO SCH (17:31)
[2024-10-20] VITALS (8 sets, daily range): BP systolic 105–127; BP diastolic 68–83; PULSE 117–150; RESP 16–20; TEMP 97.3–98.3; O2SAT 16–98
[2024-10-20 05:44] LABS: Basophils # (auto) 0 10 ^3/uL (0-0.2); Basophils % (auto) 0.1 % (0.0-2.0); Eosinophils # (auto) 0.3 10 ^3/uL (0-0.8); Eosinophils % (auto) 5.2 % (0.0-7.0); Hematocrit 35.3 % (36.0-46.0); Lymphocytes # (auto) 1.5 10 ^3/uL (0.4-5.4); Lymphocytes % (auto) 29.5 % (10.0-50.0); Mean Corpuscular Hemoglobin 28.6 pg (28.0-32.0); Mean Corpuscular Hgb Conc. 33.9 g/dL (32.0-36.0); Mean Corpuscular Volume 84.2 fL (80.0-100.0); Monocytes # (auto) 0.5 10 ^3/uL (0-1.3); Monocytes % (auto) 9.9 % (0.0-12.0); Neutrophils # (auto) 2.8 10 ^3/uL (1.6-8.6); Neutrophils % (auto) 55.3 % (37.0-80.0); Platelet Count (auto) 210 10^3/uL (140-450); Red Blood Cells 4.19 10^6/uL (4.0-5.20); White Blood Cell 5.1 10^3/uL (4.4-10.8)
[2024-10-20 06:04] LABS: Alanine Aminotransferase 62 U/L (7-40); Alkaline Phosphatase 83 U/L (46-116); Anion Gap 10 (5-15); BUN/Creatinine Ratio 14.1 (10.0-20.0); Blood Urea Nitrogen 12 mg/dL (9-23); Calcium 8.1 mg/dL (8.7-10.4); Carbon Dioxide 21 mmol/L (20-31); Chloride 113 mmol/L (98-107); Glucose 115 mg/dL (74-106); Potassium 2.9 mmol/L (3.5-5.1); Sodium 144 mmol/L (136-145)
[2024-10-20 06:05] LABS: Magnesium 2.4 mg/dL (1.6-2.6)
[2024-10-20 06:06] LABS: Albumin 2.7 g/dL (3.2-4.8); Aspartate Aminotransferase 24 U/L (13-40)
[2024-10-20 06:07] LABS: Bilirubin, Total 0.5 mg/dL (0.2-1.0); Total Protein 4.7 g/dL (5.7-8.2)
--- NOTE | 2024-10-20 11:07 | DVHPN2 ---
Subjective She is still complaining of abdominal pain and diarrhea Potassium is still low She is not having too much p.o. intake Changes from previous H/P or p: Changes Objective Vitals Vital Signs Date Time Temp Pulse Resp B/P (MAP) Pulse Ox O2 Delivery O2 Flow Rate FiO2 10/20/24 08:50 98.3 119 17 113/79 (90) 96 98.3 10/20/24 07:30 Room Air* 0 21 Intake/Output Intake and Output 10/20/24 07:00 Intake Total 1218 ml Balance 1218 ml Intake Oral 1018 ml IV Total 200 ml # Voids 4 # Bowel Movements 4 General Appearance: Alert, Oriented X3 Lungs: Clear to auscultation, Normal air movement Cardiovascular: Regular rate, Normal S1, Normal S2 Abdomen: Normal bowel sounds, Soft, No tenderness Extremities: No edema Medications Current Medications Medications Dose Ordered Sig/Shelley Route Start Time Stop Time Status Last Admin Dose Admin Nitroglycerin 0.4 mg Q5MINP PRN SL 10/17/24 14:30 Morphine Sulfate 2 mg Q30M PRN IV 10/17/24 14:30 Famotidine 20 mg DAILY IV 10/18/24 10:00 10/20/24 08:36 20 MG Diagnostic Test (Pha) 1 strip ACHS 10/17/24 17:00 10/20/24 05:53 1 STRIP Insulin Human Regular ACHS SC 10/17/24 17:00 10/19/24 21:25 2 UNITS Dextrose 50 ml UD PRN IV 10/17/24 14:30 Acetaminophen/ Hydrocodone Bitart 1 tab Q6HPRN PRN PO 10/18/24 03:45 10/20/24 08:37 1 TAB Ondansetron HCl 4 mg Q6HPRN PRN IV 10/18/24 03:45 10/18/24 21:34 4 MG Loperamide HCl 2 mg PRN PRN PO 10/18/24 21:00 10/20/24 08:49 2 MG Proteolytic Enzymes 12,600 unit TIDWM PO 10/19/24 18:00 10/20/24 08:38 12,600 UNIT Laboratory Results Laboratory Tests 10/20/24 04:44 Chemistry Test 10/19/24 15:10 10/20/24 04:44 Magnesium Level 1.9 mg/dL (1.6-2.6) 2.4 mg/dL (1.6-2.6) Albumin 2.7 g/dL (3.2-4.8) L Calcium Level 8.1 mg/dL (8.7-10.4) L Total Protein 4.7 g/dL (5.7-8.2) L LFT Test 10/20/24 04:44 Alanine Aminotransferase (ALT) 62 U/L (7-40) H Alkaline Phosphatase 83 U/L (46-116) Aspartate Amino Transferase (AST) 24 U/L (13-40) Total Bilirubin 0.5 mg/dL (0.2-1.0) Urinalysis Test 10/17/24 17:45 Urine Color Yellow (Yellow) Urine Clarity Turbid (Clear) H Urine pH 6.0 (5.0-9.0) Urine Specific [place] 1.024 (1.001-1.035) Urine Protein 1+ (Negative) H Urine Ketones 1+ (Negative) H Urine Blood Negative /uL (Negative) Urine Nitrite Negative (Negative) Urine Bilirubin Negative (Negative) Urine Urobilinogen Normal mg/dL (Negative) Urine Leukocyte Esterase Negative /uL (Negative) Urine RBC 3 /hpf (0 - 4) Urine WBC 1 /hpf (0 - 5) Urine Squamous Epithelial Cells Mod /hpf (<5) Urine Bacteria Few /hpf (None Seen) H Urine Glucose Normal mg/dL (Normal) Microbiology Microbiology Date/Time Source Procedure Growth Status 10/18/24 03:15 Stool Clostridium difficile Toxin Assay - Final Complete Assessment/Plan Assessment/Plan Dehydration Acute kidney injury due to dehydration, hemodynamically mediated Abdominal pain Pancreatic cancer Intractable nausea and vomiting Type 2 diabetes Pancreatic insufficiency Recent Whipple surgery Sinus tachycardia due to dehydration Plan 10/18/2024: Give IV fluids Glucerna supplement Pain control with Dilaudid p.r.n. Zofran p.r.n. Pepcid IV Full code Discussed with the family at the bedside 10/19/2024: Add pancreatic enzymes Continue IV fluids Check the potassium and magnesium and replace as needed Pain management as needed 10/20/2024: Add IV fluids with potassium Replace potassium IV GI consult Pain management as needed Plan discussed with: Patient My Orders Orders - RAMA MAGALLON MD Procedure Category Date Status Time Pancreatic Enzymes PHA 10/19/24 In Process Capsule (Pancreaze Ca 18:00 * Service Inspector CONS 10/19/24 Transmitted Consult Date of Service: Oct 20, 2024 Billing Provider: RAMA MAGALLON MD Common Visit Codes: NOT BILLABLE RAMA MAGALLON MD Oct 20, 2024 11:07
[2024-10-20] MEDS: SOD CHL 0.9%/ KCL 20MEQ 1,000 ML IV SCH (11:51)
[2024-10-20] MEDS: POTASSIUM CHL 20MEQ/100ML 100 ML IV ONE (11:52)
[2024-10-20] MEDS: Ensure HIGH Protein Chocolate 8oz Bottle PO SCH (12:18)
--- NOTE | 2024-10-20 21:35 | DVHINCON2 ---
Date of service: Oct 20, [address] Gordon Reason for Consultation Abdominal pain nausea vomiting occasional diarrhea history of pancreatic cancer status post Whipple surgery History of Present Illness This 74-year-old female who has history of pancreatic cancer for which she had surgery on June 06 patient has got pancreatic insufficiency and diabetes patient is on chemotherapy now and was given the 1st chemotherapy a few weeks few days ago. Persistent nausea vomiting unable to keep anything down as some diarrhea because of the she came to the emergency room and from there admitted. Any hematemesis or melena Past Medical History Pancreatic cancer diabetes pancreatic insufficiency Past Surgical History Whipple's disease for pancreatic cancer Family History: Diabetes mellitus G8 MOTHER FH: lung cancer G8 FATHER, Family History Noncontributory Social History Denies smoking or drinking Allergies: Coded Allergies: NO KNOWN ALLERGIES (Unverified , 06/28/24) Home Meds Active Scripts Pancreatic Enzymes (Pancreaze) 16,800 [place], [address] UNT PO TID for 30 Days, #90 CAP Prov:RAMA GORDON MD 07/03/24 Reported Medications Ondansetron HCl (Ondansetron Hydrochloride) 4 Mg Tab, 1 TAB PO Q8HPRN PRN for NAUSEA / VOMITING 06/29/24 Pantoprazole Sodium Sesquihydr (Pantoprazole Sodium) 40 Mg Tab, 1 TAB PO DAILY 06/29/24 Discontinued Reported Medications Oxycodone Hcl (OXYCODONE HCL) 5 Mg Tb, 1 TAB PO Q8HPRN PRN for severe pain 06/29/24 Scopolamine (Scopolamine) 1 Mg/3 Days Dis, 1 PATCH TOP Q72HR 06/29/24 Spironolactone (Spironolactone) 100 Mg Tab, 50 MG PO DAILY 06/29/24 Insulin Glargine (Lantus Solostar) 100 Unit/Ml Inj, 6 UNITS SC HS 06/29/24 Insulin Regular (Human) (Humulin R) 100 Unit/Ml Inj 06/29/24 Current Medications Current Medications Medications (Trade) Dose Ordered Sig/Shelley Route PRN Reason Start Time Stop Time Status Last Admin Potassium Chloride/Sodium Chloride 1,000 ml @ 75 mls/hr [id number] IV 10/20/24 11:15 10/20/24 11:51 Enteral Nutritional Formula (Ensure High Protein) 240 ml TIDWM PO 11/22/24 12:00 10/20/24 18:33 Review of Systems Noncontributory Vital Signs Vital Signs Date Time Temp Pulse Resp B/P (MAP) Pulse Ox O2 Delivery O2 Flow Rate FiO2 10/20/24 17:00 97.9 123 17 127/83 (98) 97 97.9 10/20/24 07:30 Room Air* 0 21 Physical Exam Poorly built and nourished slightly cachectic female in no real acute distress vital signs stable HEENT examination no pallor no icterus Neck is supple Lungs clear Cardiovascular unremarkable Abdomen soft mild tenderness in the left upper quadrant No rigidity no guarding no masses felt Bowel sounds normal Extremities no edema Neuro grossly intact Labs/Diagnostic Data Labs Test 10/20/24 21:09 10/20/24 04:44 10/18/24 08:41 10/18/24 04:50 Range/Units POC Glucose 133 H 70-106 mg/dl White Blood Count 5.1 4.4-10.8 10^3/uL Red Blood Count 4.19 4.0-5.20 10^6/uL Hemoglobin 12.0 L 12.2-16.2 g/dL Hematocrit 35.3 L 36.0-46.0 % Mean Corpuscular Volume 84.2 80.0-100.0 fL Mean Corpuscular Hemoglobin 28.6 28.0-32.0 pg Mean Corpuscular Hemoglobin Concent 33.9 32.0-36.0 g/dL Red Cell Distribution Width 15.0 H 11.8-14.3 % Platelet Count 210 140-450 10^3/uL Mean Platelet Volume 8.6 6.9-10.8 fL Neutrophils (%) (Auto) 55.3 37.0-80.0 % Lymphocytes (%) (Auto) 29.5 10.0-50.0 % Monocytes (%) (Auto) 9.9 0.0-12.0 % Eosinophils (%) (Auto) 5.2 0.0-7.0 % Basophils (%) (Auto) 0.1 0.0-2.0 % Neutrophils # (Auto) 2.8 1.6-8.6 10 ^3/uL Lymphocytes # (Auto) 1.5 0.4-5.4 10 ^3/uL Monocytes # (Auto) 0.5 0-1.3 10 ^3/uL Eosinophils # (Auto) 0.3 0-0.8 10 ^3/uL Basophils # (Auto) 0 0-0.2 10 ^3/uL Nucleated Red Blood Cells 0.0 % Sodium Level 144 136-145 mmol/L Potassium Level 2.9 L 3.5-5.1 mmol/L Chloride Level 113 H 98-107 mmol/L Carbon Dioxide Level 21 20-31 mmol/L Anion Gap 10 5-15 Blood Urea Nitrogen 12 # 9-23 mg/dL Creatinine 0.85 0.550-1.02 mg/dL Glomerular Filtration Rate Calc 71 >90 mL/min BUN/Creatinine Ratio 14.1 10.0-20.0 Serum Glucose 115 H 74-106 mg/dL Calcium Level 8.1 L 8.7-10.4 mg/dL Magnesium Level 2.4 1.6-2.6 mg/dL Total Bilirubin 0.5 0.2-1.0 mg/dL Aspartate Amino Transferase (AST) 24 13-40 U/L Alanine Aminotransferase (ALT) 62 H 7-40 U/L Alkaline Phosphatase 83 46-116 U/L Total Protein 4.7 L 5.7-8.2 g/dL Albumin 2.7 L 3.2-4.8 g/dL Differential Total Cells Counted 100.0 100 Neutrophils % (Manual) 72 37.0-80.0 Band Neutrophils % (Manual) 4 Lymphocytes % (Manual) 20 10.0-50.0 Monocytes % (Manual) 3 0-12 Eosinophils % (Manual) 1 0-7 Basophils % (Manual) 0 0.0-2.0 Metamyelocytes % (manual) 0 Myelocytes % (Manual) 0 Promyelocytes % (Manual) 0 Blast Cells % (Manual) 0 Reactive Lymphocytes 0 Platelet Estimate Adequate Red Blood Cell Morphology Normal Lipase 20 12-53 U/L Test 10/17/24 17:45 10/17/24 15:38 10/17/24 13:09 10/17/24 10:50 Range/Units Urine Color Yellow Yellow Urine Clarity Turbid H Clear Urine pH 6.0 5.0-9.0 Urine Specific [place] 1.024 1.001-1.035 Urine Protein 1+ H Negative Urine Ketones 1+ H Negative Urine Blood Negative Negative /uL Urine Nitrite Negative Negative Urine Bilirubin Negative Negative Urine Urobilinogen Normal Negative mg/dL Urine Leukocyte Esterase Negative Negative /uL Urine RBC 3 0 - 4 /hpf Urine WBC 1 0 - 5 /hpf Urine Squamous Epithelial Cells Mod <5 /hpf Urine Bacteria Few H None Seen /hpf Urine Glucose Normal Normal mg/dL Troponin I High Sensitivity 6 </=34 ng/L Lactic Acid Level 1.4 0.4-2.0 mmol/L B-Type Natriuretic Peptide 10.55 0-100 pg/mL Thyroid Stimulating Hormone (TSH) 1.44 0.55-4.78 uIU/mL Microbiology Date/Time Source Procedure Growth Status 10/18/24 03:15 Stool Clostridium difficile Toxin Assay - Final Complete Assessment 74-year-old female with a history of pancreatic cancer status post Whipple on chemotherapy now with consenting with complaints of abdominal pain in the left upper quadrant This admission he has also developed some diarrhea which has been getting better Labs showed slightly increased ALT and AST bilirubin and alk-phos are normal Clinical impression pancreatic cancer status post Whipple status post chemo with some side effects of nausea vomiting mild dehydration mildly elevated liver enz ymes no evidence of any gross pancreatitis or other pathology now Plan/Recommendation We will recommend to treat symptomatically with IV fluids IV hydration alternatives stone PPIs etc. and follow the liver enzymes and symptomatic tr eatment and see If symptoms worsen may need further evaluation necessary including radiological or endoscopic workup etc. but for the time being we will recommend symptomatic treatment follow with the oncologist as an outpatient Plan discussed with: Patient VAN JULIO MD Oct 20, 2024 21:35
[2024-10-21] VITALS (9 sets, daily range): BP systolic 115–145; BP diastolic 77–88; PULSE 107–123; RESP 16–18; TEMP 97.1–98.3; O2SAT 95–98
[2024-10-21 09:30] LABS: Chloride 115 mmol/L (98-107); Potassium 3.2 mmol/L (3.5-5.1); Sodium 145 mmol/L (136-145)
[2024-10-21 09:31] LABS: Anion Gap 8 (5-15); Calcium 8.2 mg/dL (8.7-10.4); Carbon Dioxide 22 mmol/L (20-31)
[2024-10-21 09:36] LABS: BUN/Creatinine Ratio 9.8 (10.0-20.0); Blood Urea Nitrogen 8 mg/dL (9-23); Glucose 121 mg/dL (74-106)
--- NOTE | 2024-10-21 13:29 | DVHPN2 ---
Subjective Feeling better Still some diarrhea Potassium is better Changes from previous H/P or p: Changes Objective Vitals Vital Signs Date Time Temp Pulse Resp B/P (MAP) Pulse Ox O2 Delivery O2 Flow Rate FiO2 10/21/24 12:49 97.7 115 18 137/86 (103) 96 97.7 10/21/24 07:58 Room Air* 0 21 Intake/Output Intake and Output 10/21/24 07:00 Intake Total 1875 ml Balance 1875 ml Intake Oral 1400 ml IV Total 475 ml # Voids 5 # Bowel Movements 1 General Appearance: Alert, Oriented X3 Lungs: Clear to auscultation, Normal air movement Cardiovascular: Regular rate, Normal S1, Normal S2 Abdomen: Normal bowel sounds, Soft, No tenderness Extremities: No edema Medications Current Medications Medications Dose Ordered Sig/Shelley Route Start Time Stop Time Status Last Admin Dose Admin Nitroglycerin 0.4 mg Q5MINP PRN SL 10/17/24 14:30 Morphine Sulfate 2 mg Q30M PRN IV 10/17/24 14:30 Famotidine 20 mg DAILY IV 10/18/24 10:00 10/21/24 08:16 20 MG Diagnostic Test (Pha) 1 strip ACHS 10/17/24 17:00 10/21/24 11:34 1 STRIP Insulin Human Regular ACHS SC 10/17/24 17:00 10/19/24 21:25 2 UNITS Dextrose 50 ml UD PRN IV 10/17/24 14:30 Acetaminophen/ Hydrocodone Bitart 1 tab Q6HPRN PRN PO 10/18/24 03:45 10/21/24 11:32 1 TAB Ondansetron HCl 4 mg Q6HPRN PRN IV 10/18/24 03:45 10/18/24 21:34 4 MG Loperamide HCl 2 mg PRN PRN PO 10/18/24 21:00 10/21/24 04:54 2 MG Proteolytic Enzymes 12,600 unit TIDWM PO 10/19/24 18:00 10/21/24 12:43 12,600 UNIT Potassium Chloride/Sodium Chloride 1,000 ml @ 75 mls/hr [id number] IV 10/20/24 11:15 10/20/24 23:27 75 MLS/HR Enteral Nutritional Formula 240 ml TIDWM PO 10/20/24 12:00 10/21/24 12:43 240 ML Laboratory Results Laboratory Tests 10/20/24 04:44 10/21/24 08:57 Chemistry Test 10/21/24 08:57 Calcium Level 8.2 mg/dL (8.7-10.4) L Urinalysis Test 10/17/24 17:45 Urine Color Yellow (Yellow) Urine Clarity Turbid (Clear) H Urine pH 6.0 (5.0-9.0) Urine Specific [place] 1.024 (1.001-1.035) Urine Protein 1+ (Negative) H Urine Ketones 1+ (Negative) H Urine Blood Negative /uL (Negative) Urine Nitrite Negative (Negative) Urine Bilirubin Negative (Negative) Urine Urobilinogen Normal mg/dL (Negative) Urine Leukocyte Esterase Negative /uL (Negative) Urine RBC 3 /hpf (0 - 4) Urine WBC 1 /hpf (0 - 5) Urine Squamous Epithelial Cells Mod /hpf (<5) Urine Bacteria Few /hpf (None Seen) H Urine Glucose Normal mg/dL (Normal) Microbiology Microbiology Date/Time Source Procedure Growth Status 10/18/24 03:15 Stool Clostridium difficile Toxin Assay - Final Complete Assessment/Plan Assessment/Plan Dehydration Acute kidney injury due to dehydration, hemodynamically mediated Abdominal pain Pancreatic cancer Intractable nausea and vomiting Type 2 diabetes Pancreatic insufficiency Recent Whipple surgery Sinus tachycardia due to dehydration Plan 10/18/2024: Give IV fluids Glucerna supplement Pain control with Dilaudid p.r.n. Zofran p.r.n. Pepcid IV Full code Discussed with the family at the bedside 10/19/2024: Add pancreatic enzymes Continue IV fluids Check the potassium and magnesium and replace as needed Pain management as needed 10/20/2024: Add IV fluids with potassium Replace potassium IV GI consult Pain management as needed 10/21/2024: Continue IV fluids with potassium Add potassium p.o. Increase the pancreatic enzymes Discharge planning for tomorrow Plan discussed with: Patient Date of Service: Oct 21, 2024 Billing Provider: RAMA MAGALLON MD Common Visit Codes: NOT BILLABLE RAMA MAGALLON MD Oct 21, 2024 13:29
[2024-10-21] MEDS: POTASSIUM CHL 20 Meq TABLET PO ONE (16:23)
[2024-10-21] MEDS: PANCREATIC ENZYMES 4200 UNIT CAP PO SCH (17:55)
--- NOTE | 2024-10-21 18:03 | DVHPN2 ---
Progress Note - Dictate Date Seen: Oct 21, 2024 Has the PT tested + for MRSA If YES, has PT been informed?: No Medical Necessity Reason Pt with a Central, PICC or Fol: No Subjective Continuing to do better Tolerated food well no nausea vomiting no bleeding no diarrhea vital signs Vital Sign Date Time Temp Pulse Resp B/P (MAP) Pulse Ox O2 Delivery O2 Flow Rate FiO2 10/21/24 16:50 97.7 112 18 133/88 (103) 95 97.7 10/21/24 07:58 Room Air* 0 21 Total Intake and Output 10/20/24 10/20/24 10/21/24 14:59 22:59 06:59 Intake Total 100 ml 1275 ml 500 ml Balance 100 ml 1275 ml 500 ml medications Current Medications Medications Dose Ordered Sig/Shelley Route Start Time Stop Time Status Last Admin Dose Admin Nitroglycerin 0.4 mg Q5MINP PRN SL 10/17/24 14:30 Morphine Sulfate 2 mg Q30M PRN IV 10/17/24 14:30 Famotidine 20 mg DAILY IV 10/18/24 10:00 10/21/24 08:16 20 MG Diagnostic Test (Pha) 1 strip ACHS 10/17/24 17:00 10/21/24 17:55 1 STRIP Insulin Human Regular ACHS SC 10/17/24 17:00 10/19/24 21:25 2 UNITS Dextrose 50 ml UD PRN IV 10/17/24 14:30 Acetaminophen/ Hydrocodone Bitart 1 tab Q6HPRN PRN PO 10/18/24 03:45 10/21/24 11:32 1 TAB Ondansetron HCl 4 mg Q6HPRN PRN IV 10/18/24 03:45 10/18/24 21:34 4 MG Loperamide HCl 2 mg PRN PRN PO 10/18/24 21:00 10/21/24 04:54 2 MG Potassium Chloride/Sodium Chloride 1,000 ml @ 75 mls/hr [id number] IV 10/20/24 11:15 10/20/24 23:27 75 MLS/HR Enteral Nutritional Formula 240 ml TIDWM PO 10/20/24 12:00 10/21/24 12:43 240 ML Proteolytic Enzymes 16,800 unit TIDWM PO 10/21/24 18:00 10/21/24 17:55 16,800 UNIT objective Abdomen soft no distention no rigidity no guarding laboratory and microbiology Laboratory Tests 10/21/24 08:57 10/20/24 04:44 Test 10/21/24 08:57 Range/Units Serum Glucose 121 H 74-106 mg/dL Assessment/Plan 74-year-old female with a history of pancreatic cancer status post Whipple on chemotherapy now with consenting with complaints of abdominal pain in the left upper quadrant This admission he has also developed some diarrhea which has been getting better Labs showed slightly increased ALT and AST bilirubin and alk-phos are normal Clinical impression pancreatic cancer status post Whipple status post chemo with some side effects of nausea vomiting mild dehydration mildly elevated liver enzymes no evidence of any gross pancreatitis or other pathology now Patient clinically better today tolerating feeds Well and some symptoms of better we will recommend to increase the feeds and can be sent home for follow-up with the oncologist thank you Dr. Aguilar Dietary Evaluation Review Comments: 1) Continue current plan of care Expected Outcomes/Goals: F/U in 3-5 days Plan discussed with: Patient VAN AGUILAR MD Oct 21, 2024 18:03
[2024-10-22] VITALS (7 sets, daily range): BP systolic 129–155; BP diastolic 82–94; PULSE 107–135; RESP 18–20; TEMP 97.5–99; O2SAT 97–98
[2024-10-22 05:50] LABS: Anion Gap 9 (5-15); Carbon Dioxide 19 mmol/L (20-31); Chloride 115 mmol/L (98-107); Potassium 3.7 mmol/L (3.5-5.1); Sodium 143 mmol/L (136-145)
[2024-10-22 05:51] LABS: Calcium 8.1 mg/dL (8.7-10.4)
[2024-10-22 05:56] LABS: BUN/Creatinine Ratio 7.8 (10.0-20.0); Blood Urea Nitrogen 6 mg/dL (9-23); Glucose 101 mg/dL (74-106)
[2024-10-22 05:57] LABS: Magnesium 1.6 mg/dL (1.6-2.6)
--- NOTE | 2024-10-22 13:25 | DVHPN2 ---
Subjective Doing better Potassium is normal Magnesium is still low Changes from previous H/P or p: Changes Objective Vitals Vital Signs Date Time Temp Pulse Resp B/P (MAP) Pulse Ox O2 Delivery O2 Flow Rate FiO2 10/22/24 09:00 98.5 116 18 155/90 (111) 97 98.5 10/21/24 19:30 Room Air* 0 21 Intake/Output Intake and Output 10/22/24 07:00 Intake Total 1715 ml Output Total 150 ml Balance 1565 ml Intake Oral 450 ml IV Total 1265 ml Output Urine Total 150 ml # Voids 2 # Bowel Movements 1 General Appearance: Alert, Oriented X3 Lungs: Clear to auscultation, Normal air movement Cardiovascular: Regular rate, Normal S1, Normal S2 Abdomen: Normal bowel sounds, Soft, No tenderness Extremities: No edema Medications Current Medications Medications Dose Ordered Sig/Shelley Route Start Time Stop Time Status Last Admin Dose Admin Nitroglycerin 0.4 mg Q5MINP PRN SL 10/17/24 14:30 Morphine Sulfate 2 mg Q30M PRN IV 10/17/24 14:30 Famotidine 20 mg DAILY IV 10/18/24 10:00 10/22/24 09:32 20 MG Diagnostic Test (Pha) 1 strip ACHS 10/17/24 17:00 10/22/24 11:29 1 STRIP Insulin Human Regular ACHS SC 10/17/24 17:00 10/19/24 21:25 2 UNITS Dextrose 50 ml UD PRN IV 10/17/24 14:30 Acetaminophen/ Hydrocodone Bitart 1 tab Q6HPRN PRN PO 10/18/24 03:45 10/22/24 09:52 1 TAB Ondansetron HCl 4 mg Q6HPRN PRN IV 10/18/24 03:45 10/18/24 21:34 4 MG Loperamide HCl 2 mg PRN PRN PO 10/18/24 21:00 10/21/24 04:54 2 MG Potassium Chloride/Sodium Chloride 1,000 ml @ 75 mls/hr [id number] IV 10/20/24 11:15 10/22/24 02:04 75 MLS/HR Enteral Nutritional Formula 240 ml TIDWM PO 10/20/24 12:00 10/22/24 08:00 240 ML Proteolytic Enzymes 16,800 unit TIDWM PO 10/21/24 18:00 10/22/24 09:33 16,800 UNIT Magnesium Sulfate/ Dextrose 100 ml @ 100 mls/hr Q1HR IV 10/22/24 13:00 10/22/24 14:59 Laboratory Results Laboratory Tests 10/20/24 04:44 10/22/24 05:09 Chemistry Test 10/22/24 05:09 Calcium Level 8.1 mg/dL (8.7-10.4) L Magnesium Level 1.6 mg/dL (1.6-2.6) Urinalysis Test 10/17/24 17:45 Urine Color Yellow (Yellow) Urine Clarity Turbid (Clear) H Urine pH 6.0 (5.0-9.0) Urine Specific [place] 1.024 (1.001-1.035) Urine Protein 1+ (Negative) H Urine Ketones 1+ (Negative) H Urine Blood Negative /uL (Negative) Urine Nitrite Negative (Negative) Urine Bilirubin Negative (Negative) Urine Urobilinogen Normal mg/dL (Negative) Urine Leukocyte Esterase Negative /uL (Negative) Urine RBC 3 /hpf (0 - 4) Urine WBC 1 /hpf (0 - 5) Urine Squamous Epithelial Cells Mod /hpf (<5) Urine Bacteria Few /hpf (None Seen) H Urine Glucose Normal mg/dL (Normal) Microbiology Microbiology Date/Time Source Procedure Growth Status 10/18/24 03:15 Stool Clostridium difficile Toxin Assay - Final Complete Assessment/Plan Assessment/Plan Dehydration Acute kidney injury due to dehydration, hemodynamically mediated Abdominal pain Pancreatic cancer Intractable nausea and vomiting Type 2 diabetes Pancreatic insufficiency Recent Whipple surgery Sinus tachycardia due to dehydration Plan 10/18/2024: Give IV fluids Glucerna supplement Pain control with Dilaudid p.r.n. Zofran p.r.n. Pepcid IV Full code Discussed with the family at the bedside 10/19/2024: Add pancreatic enzymes Continue IV fluids Check the potassium and magnesium and replace as needed Pain management as needed 10/20/2024: Add IV fluids with potassium Replace potassium IV GI consult Pain management as needed 10/21/2024: Continue IV fluids with potassium Add potassium p.o. Increase the pancreatic enzymes Discharge planning for tomorrow 10/22/2024: Continue IV fluids with potassium Replace magnesium IV Continue current management otherwise Discharge planning for tomorrow Physical therapy Plan discussed with: Patient My Orders Orders - RAMA MAGALLON MD Procedure Category Date Status Time Pancreatic Enzymes PHA 10/21/24 In Process Capsule (Pancreaze Ca 18:00 Magnesium Sulfate PHA 10/22/24 In Process 1gm/100ml 13:00 Date of Service: Oct 22, 2024 Billing Provider: RAMA MAGALLON MD Common Visit Codes: NOT BILLABLE RAMA MAGALLON MD Oct 22, 2024 13:25
[2024-10-22] MEDS: MAGNESIUM SULFATE 1GM/100ML 100 ML IV SCH (14:00)
[2024-10-23] VITALS (8 sets, daily range): BP systolic 104–146; BP diastolic 47–104; PULSE 105–115; RESP 16–18; TEMP 97.2–98.9; O2SAT 98–100
[2024-10-23 07:04] LABS: Chloride 116 mmol/L (98-107); Sodium 144 mmol/L (136-145)
[2024-10-23 07:05] LABS: Anion Gap 6 (5-15); Calcium 7.7 mg/dL (8.7-10.4); Carbon Dioxide 22 mmol/L (20-31)
[2024-10-23 07:10] LABS: BUN/Creatinine Ratio 13.7 (10.0-20.0); Blood Urea Nitrogen 10 mg/dL (9-23); Glucose 97 mg/dL (74-106)
[2024-10-23 07:11] LABS: Magnesium 1.5 mg/dL (1.6-2.6)
[2024-10-23 07:34] LABS: Potassium 5.7 mmol/L (3.5-5.1)
--- NOTE | 2024-10-23 12:23 | DVHPN2 ---
Subjective Doing better Potassium is high now Magnesium is still low Changes from previous H/P or p: Changes Objective Vitals Vital Signs Date Time Temp Pulse Resp B/P (MAP) Pulse Ox O2 Delivery O2 Flow Rate FiO2 10/23/24 09:00 98.1 110 17 146/104 (118) 100 98.1 10/23/24 08:00 Room Air* 0 21 Intake/Output Intake and Output 10/23/24 07:00 Intake Total 1425 ml Balance 1425 ml Intake Oral 1425 ml # Voids 11 # Bowel Movements 1 General Appearance: Alert, Oriented X3 Lungs: Clear to auscultation, Normal air movement Cardiovascular: Regular rate, Normal S1, Normal S2 Abdomen: Normal bowel sounds, Soft, No tenderness Extremities: No edema Medications Current Medications Medications Dose Ordered Sig/Shelley Route Start Time Stop Time Status Last Admin Dose Admin Nitroglycerin 0.4 mg Q5MINP PRN SL 10/17/24 14:30 Morphine Sulfate 2 mg Q30M PRN IV 10/17/24 14:30 Famotidine 20 mg DAILY IV 10/18/24 10:00 10/23/24 08:36 20 MG Diagnostic Test (Pha) 1 strip ACHS 10/17/24 17:00 10/23/24 11:30 1 STRIP Insulin Human Regular ACHS SC 10/17/24 17:00 10/19/24 21:25 2 UNITS Dextrose 50 ml UD PRN IV 10/17/24 14:30 Acetaminophen/ Hydrocodone Bitart 1 tab Q6HPRN PRN PO 10/18/24 03:45 10/23/24 06:04 1 TAB Ondansetron HCl 4 mg Q6HPRN PRN IV 10/18/24 03:45 10/18/24 21:34 4 MG Loperamide HCl 2 mg PRN PRN PO 10/18/24 21:00 10/21/24 04:54 2 MG Enteral Nutritional Formula 240 ml TIDWM PO 10/20/24 12:00 10/23/24 12:11 240 ML Proteolytic Enzymes 16,800 unit TIDWM PO 10/21/24 18:00 10/23/24 12:11 16,800 UNIT Magnesium Sulfate/ Dextrose 100 ml @ 100 mls/hr Q1HR IV 10/23/24 13:00 10/23/24 14:59 UNV Laboratory Results Laboratory Tests 10/20/24 04:44 10/23/24 05:48 Chemistry Test 10/23/24 05:48 Calcium Level 7.7 mg/dL (8.7-10.4) L Magnesium Level 1.5 mg/dL (1.6-2.6) L Urinalysis Test 10/17/24 17:45 Urine Color Yellow (Yellow) Urine Clarity Turbid (Clear) H Urine pH 6.0 (5.0-9.0) Urine Specific [place] 1.024 (1.001-1.035) Urine Protein 1+ (Negative) H Urine Ketones 1+ (Negative) H Urine Blood Negative /uL (Negative) Urine Nitrite Negative (Negative) Urine Bilirubin Negative (Negative) Urine Urobilinogen Normal mg/dL (Negative) Urine Leukocyte Esterase Negative /uL (Negative) Urine RBC 3 /hpf (0 - 4) Urine WBC 1 /hpf (0 - 5) Urine Squamous Epithelial Cells Mod /hpf (<5) Urine Bacteria Few /hpf (None Seen) H Urine Glucose Normal mg/dL (Normal) Microbiology Microbiology Date/Time Source Procedure Growth Status 10/18/24 03:15 Stool Clostridium difficile Toxin Assay - Final Complete Assessment/Plan Assessment/Plan Dehydration Acute kidney injury due to dehydration, hemodynamically mediated Abdominal pain Pancreatic cancer Intractable nausea and vomiting Type 2 diabetes Pancreatic insufficiency Recent Whipple surgery Sinus tachycardia due to dehydration Plan 10/18/2024: Give IV fluids Glucerna supplement Pain control with Dilaudid p.r.n. Zofran p.r.n. Pepcid IV Full code Discussed with the family at the bedside 10/19/2024: Add pancreatic enzymes Continue IV fluids Check the potassium and magnesium and replace as needed Pain management as needed 10/20/2024: Add IV fluids with potassium Replace potassium IV GI consult Pain management as needed 10/21/2024: Continue IV fluids with potassium Add potassium p.o. Increase the pancreatic enzymes Discharge planning for tomorrow 10/22/2024: Continue IV fluids with potassium Replace magnesium IV Continue current management otherwise Discharge planning for tomorrow Physical therapy 10/23/2024: Hyperkalemia: Stopped the IV fluids with potassium due to hyperkalemia Hypomagnesemia: Replace p.o. and IV Recheck the potassium level Pain management Continue pancreatic enzymes Physical therapy Plan discussed with: Patient My Orders Orders - RAMA MAGALLON MD Procedure Category Date Status Time Basic Metabolic Panel LAB 10/23/24 Logged 12:20 Magnesium Farhan PHA 10/23/24 Transmitted 13:00 Date of Service: Oct 23, 2024 Billing Provider: RAMA MAGALLON MD Common Visit Codes: NOT BILLABLE RAMA MAGALLON MD Oct 23, 2024 12:23
[2024-10-23] MEDS: MAGNESIUM SULFATE 1GM/100ML 100 ML IV SCH (13:31)
[2024-10-23 14:17] LABS: Chloride 112 mmol/L (98-107); Sodium 143 mmol/L (136-145)
[2024-10-23 14:18] LABS: Anion Gap 7 (5-15); Carbon Dioxide 24 mmol/L (20-31)
[2024-10-23 14:19] LABS: Calcium 8.1 mg/dL (8.7-10.4)
[2024-10-23 14:23] LABS: BUN/Creatinine Ratio 14.7 (10.0-20.0); Blood Urea Nitrogen 11 mg/dL (9-23); Glucose 133 mg/dL (74-106)
[2024-10-23 14:24] LABS: Potassium 3.2 mmol/L (3.5-5.1)
[2024-10-23] MEDS: POTASSIUM CHL 20 Meq TABLET PO ONE (16:53)
[2024-10-23] MEDS: MAGNESIUM OXIDE 400 MG TAB PO SCH (22:37)
[2024-10-24 00:59] VITALS: BP 130/76; PULSE 102; RESP 16; TEMP 98.3; O2SAT 98
[2024-10-24 05:00] VITALS: BP 131/86; PULSE 103; RESP 16; TEMP 98.5; O2SAT 97
[2024-10-24 06:42] LABS: Basophils # (auto) 0 10 ^3/uL (0-0.2); Basophils % (auto) 0.3 % (0.0-2.0); Eosinophils # (auto) 0.2 10 ^3/uL (0-0.8); Eosinophils % (auto) 3.3 % (0.0-7.0); Hematocrit 31.3 % (36.0-46.0); Hemoglobin 10.7 g/dL (12.2-16.2); Lymphocytes # (auto) 1.3 10 ^3/uL (0.4-5.4); Lymphocytes % (auto) 22.7 % (10.0-50.0); Mean Corpuscular Hemoglobin 28.6 pg (28.0-32.0); Mean Corpuscular Hgb Conc. 34.2 g/dL (32.0-36.0); Mean Corpuscular Volume 83.5 fL (80.0-100.0); Monocytes # (auto) 0.5 10 ^3/uL (0-1.3); Neutrophils # (auto) 3.7 10 ^3/uL (1.6-8.6); Neutrophils % (auto) 64.7 % (37.0-80.0); Nucleated Red Blood Cells % 0.1 %; Platelet Count (auto) 219 10^3/uL (140-450); Red Blood Cells 3.75 10^6/uL (4.0-5.20); Red Cell Distribution Width 14.7 % (11.8-14.3); White Blood Cell 5.7 10^3/uL (4.4-10.8)
[2024-10-24 06:52] LABS: Alanine Aminotransferase 32 U/L (7-40); Albumin 2.7 g/dL (3.2-4.8); Alkaline Phosphatase 120 U/L (46-116); Aspartate Aminotransferase 19 U/L (13-40); BUN/Creatinine Ratio 13.9 (10.0-20.0); Blood Urea Nitrogen 11 mg/dL (9-23); Calcium 8.3 mg/dL (8.7-10.4); Chloride 112 mmol/L (98-107); Glucose 131 mg/dL (74-106); Magnesium 1.9 mg/dL (1.6-2.6); Potassium 3.9 mmol/L (3.5-5.1); Sodium 144 mmol/L (136-145)
[2024-10-24 06:53] LABS: Bilirubin, Total 0.5 mg/dL (0.2-1.0); Total Protein 4.5 g/dL (5.7-8.2)
[2024-10-24 07:42] LABS: Anion Gap 7 (5-15); Carbon Dioxide 25 mmol/L (20-31)
[2024-10-24 08:00] VITALS: PULSE 103; PULSE 110; RESP 18; O2SAT 98
[2024-10-24 09:00] VITALS: BP 138/85; PULSE 110; RESP 18; TEMP 98; O2SAT 98
[2024-10-24 13:00] VITALS: BP 141/84; PULSE 101; RESP 20; TEMP 98.1; O2SAT 98
[2024-10-24] MEDS ORDERED: HYDR-4902 PO (13:04)
[2024-10-24] MEDS ORDERED: POTA-211 PO (13:04)
[2024-10-24] MEDS ORDERED: MAGN400T40 PO (13:04)
--- NOTE | 2024-10-24 13:09 | DVHDS2 ---
Discharge Summary Date of Admission Oct 17, 2024 at 14:16 Date of Discharge: Oct 24, 2024 Labs/Diagnostic Data: Laboratory Results Test 10/24/24 11:11 10/24/24 05:42 10/18/24 08:41 10/18/24 04:50 POC Glucose 150 mg/dl (70-106) White Blood Count 5.7 10^3/uL (4.4-10.8) Red Blood Count 3.75 10^6/uL (4.0-5.20) Hemoglobin 10.7 g/dL (12.2-16.2) Hematocrit 31.3 % (36.0-46.0) Mean Corpuscular Volume 83.5 fL (80.0-100.0) Mean Corpuscular Hemoglobin 28.6 pg (28.0-32.0) Mean Corpuscular Hemoglobin Concent 34.2 g/dL (32.0-36.0) Red Cell Distribution Width 14.7 % (11.8-14.3) Platelet Count 219 10^3/uL (140-450) Mean Platelet Volume 8.1 fL (6.9-10.8) Neutrophils (%) (Auto) 64.7 % (37.0-80.0) Lymphocytes (%) (Auto) 22.7 % (10.0-50.0) Monocytes (%) (Auto) 9.0 % (0.0-12.0) Eosinophils (%) (Auto) 3.3 % (0.0-7.0) Basophils (%) (Auto) 0.3 % (0.0-2.0) Neutrophils # (Auto) 3.7 10 ^3/uL (1.6-8.6) Lymphocytes # (Auto) 1.3 10 ^3/uL (0.4-5.4) Monocytes # (Auto) 0.5 10 ^3/uL (0-1.3) Eosinophils # (Auto) 0.2 10 ^3/uL (0-0.8) Basophils # (Auto) 0 10 ^3/uL (0-0.2) Nucleated Red Blood Cells 0.1 % Sodium Level 144 mmol/L (136-145) Potassium Level 3.9 mmol/L (3.5-5.1) Chloride Level 112 mmol/L (98-107) Carbon Dioxide Level 25 mmol/L (20-31) Anion Gap 7 (5-15) Blood Urea Nitrogen 11 mg/dL (9-23) Creatinine 0.79 mg/dL (0.550-1.02) Glomerular Filtration Rate Calc 77 mL/min (>90) BUN/Creatinine Ratio 13.9 (10.0-20.0) Serum Glucose 131 mg/dL (74-106) Calcium Level 8.3 mg/dL (8.7-10.4) Magnesium Level 1.9 mg/dL (1.6-2.6) Total Bilirubin 0.5 mg/dL (0.2-1.0) Aspartate Amino Transferase (AST) 19 U/L (13-40) Alanine Aminotransferase (ALT) 32 U/L (7-40) Alkaline Phosphatase 120 U/L (46-116) Total Protein 4.5 g/dL (5.7-8.2) Albumin 2.7 g/dL (3.2-4.8) Differential Total Cells Counted 100.0 (100) Neutrophils % (Manual) 72 (37.0-80.0) Band Neutrophils % (Manual) 4 Lymphocytes % (Manual) 20 (10.0-50.0) Monocytes % (Manual) 3 (0-12) Eosinophils % (Manual) 1 (0-7) Basophils % (Manual) 0 (0.0-2.0) Metamyelocytes % (manual) 0 Myelocytes % (Manual) 0 Promyelocytes % (Manual) 0 Blast Cells % (Manual) 0 Reactive Lymphocytes 0 Platelet Estimate Adequate Red Blood Cell Morphology Normal Lipase 20 U/L (12-53) Test 10/17/24 17:45 10/17/24 15:38 10/17/24 13:09 10/17/24 10:50 Urine Color Yellow (Yellow) Urine Clarity Turbid (Clear) Urine pH 6.0 (5.0-9.0) Urine Specific [place] 1.024 (1.001-1.035) Urine Protein 1+ (Negative) Urine Ketones 1+ (Negative) Urine Blood Negative /uL (Negative) Urine Nitrite Negative (Negative) Urine Bilirubin Negative (Negative) Urine Urobilinogen Normal mg/dL (Negative) Urine Leukocyte Esterase Negative /uL (Negative) Urine RBC 3 /hpf (0 - 4) Urine WBC 1 /hpf (0 - 5) Urine Squamous Epithelial Cells Mod /hpf (<5) Urine Bacteria Few /hpf (None Seen) Urine Glucose Normal mg/dL (Normal) Troponin I High Sensitivity 6 ng/L (</=34) Lactic Acid Level 1.4 mmol/L (0.4-2.0) B-Type Natriuretic Peptide 10.55 pg/mL (0-100) Thyroid Stimulating Hormone (TSH) 1.44 uIU/mL (0.55-4.78) Other Laboratory Tests 10/24/24 05:42 Brief Hx & Hospital Course: Final diagnoses: Dehydration Acute kidney injury due to dehydration, hemodynamically mediated Abdominal pain Pancreatic cancer Intractable nausea and vomiting Type 2 diabetes Pancreatic insufficiency Recent Whipple surgery Sinus tachycardia due to dehydration Hypomagnesemia Hypokalemia IV fluids were given Potassium magnesium supplements Pain management was done Overall she improved but she remained weakness and had complaints of abdominal pain Today her potassium magnesium finally are corrected and her kidney function has improved She is stable for discharge She will be given [place] for pain and some more magnesium potassium supplements for 10 days Resume home medications Follow up with her oncologist as soon as possible to follow up on her cancer Condition at Discharge: Stable Final Diagnosis/Problems List Dehydration Acute kidney injury due to dehydration, hemodynamically mediated Abdominal pain Pancreatic cancer Intractable nausea and vomiting Type 2 diabetes Pancreatic insufficiency Recent Whipple surgery Sinus tachycardia due to dehydration Hypomagnesemia Hypokalemia Discharge Disposition: Home SNF Discharge Will this Physician continue t: No Discharge Instruct/Medications Diet: Regular Activity: No Restrictions, As Tolerated Follow Up/Referral: PCP as soon as possible Locator Specialist oncologist as soon as possible Medications: Resume the home medications Add magnesium and potassium for 10 days [place] p.r.n. for pain Discharge Statement: "Patient was advised to return to the ER or call 911 if any headaches, dizziness, shortness of breath, chest pain, abdominal pain, bleeding, fevers, or worsening of medical condition. Patient was counseled about treatment plan, medications, possible side effects, patientverbalized understanding. All questions were answered to the best of my ability. This discharge took greater then 30 minutes in planning, reviewing documentation, counseling the patient, and discussing with other team members." ASSESSMENT ASSESSMENT Assessment Dehydration Acute kidney injury due to dehydration, hemodynamically mediated Abdominal pain Pancreatic cancer Intractable nausea and vomiting Type 2 diabetes Pancreatic insufficiency Recent Whipple surgery Sinus tachycardia due to dehydration Hypomagnesemia Hypokalemia Date of Service: Oct 24, 2024 Billing Provider: RAMA MAGALLON MD Common Visit Codes: NOT BILLABLE RAMA MAGALLON MD Oct 24, 2024 13:09
[2024-10-24 17:00] VITALS: BP 148/92; PULSE 124; RESP 20; TEMP 98.3; O2SAT 95
== END 2024-10-24 18:30 | disposition home or self-care (01) | DRG 640 ==
LOC: ER 10:08 → TELE 14:16 → TELE-WESTW 20:45
PROVIDERS: ADMIT Internal Medicine Geriatric Medicine; ATTEND Internal Medicine Geriatric Medicine
DX: E86.0 Dehydration (principal); N17.0 Acute kidney failure with tubular necrosis; C25.9 Malignant neoplasm of pancreas, unspecified; I47.10 Supraventricular tachycardia, unspecified; E11.9 Type 2 diabetes mellitus without complications; E83.42 Hypomagnesemia; E87.6 Hypokalemia; Z90.411 Acquired partial absence of pancreas; Z83.3 Family history of diabetes mellitus; Z80.1 Family history of malignant neoplasm of trachea, bronchus and lung; Z79.4 Long term (current) use of insulin; Z79.899 Other long term (current) drug therapy
CPT/HCPCS: 36415; 71045; 74176; 80048; 80053; 81001; 82962; 83605; 83690; 83735; 83880; 84132; 84443; 84484; 85007; 85025; 85027; 87493; 93005; 96361; 96374; 96375; 97110; 97116; 97163; 97530; G0378; J1815; J2405; J3480; J3490

== ENCOUNTER 2025-03-04 12:57 | Inpatient (IN) | payer MEDICARE, OTHER ==
[~2025-03-04] VITALS: Ht 167.6 cm; Wt 64.1 kg
[~2025-03-04 12:57] MED LIST changes: +HYDR-4902 PO; -INSREG3; -INSUINJ37 SC; +MAGN400T40 PO; -OXY5T PO; +POTA-211 PO; -SCOP1DIS9 TOP; -SPIR100T4 PO
[2025-03-04] MEDS: PROCHLORPERAZINE EDISYLATE 5 MG/ML 2ML VIAL IV ONE (13:29)
[2025-03-04] MEDS: SODIUM CHLORIDE 0.9% 1,000 ML IV ONE ×2 (13:29→23:58)
[2025-03-04 13:36] VITALS: PULSE 117; RESP 20; O2SAT 98
[2025-03-04 13:54] LABS: Basophils # (auto) 0 10 ^3/uL (0-0.2); Basophils % (auto) 0.2 % (0.0-2.0); Eosinophils # (auto) 0.1 10 ^3/uL (0-0.8); Hematocrit 44.7 % (36.0-46.0); Hemoglobin 15.1 g/dL (12.2-16.2); Lymphocytes # (auto) 1.1 10 ^3/uL (0.4-5.4); Lymphocytes % (auto) 52.2 % (10.0-50.0); Mean Corpuscular Hemoglobin 29.3 pg (28.0-32.0); Mean Corpuscular Hgb Conc. 33.7 g/dL (32.0-36.0); Mean Corpuscular Volume 86.9 fL (80.0-100.0); Monocytes # (auto) 0.1 10 ^3/uL (0-1.3); Monocytes % (auto) 6.2 % (0.0-12.0); Neutrophils # (auto) 0.7 10 ^3/uL (1.6-8.6); Neutrophils % (auto) 35.4 % (37.0-80.0); Nucleated Red Blood Cells % 0.1 %; Platelet Count (auto) 86 10^3/uL (140-450); Red Blood Cells 5.15 10^6/uL (4.0-5.20); Red Cell Distribution Width 13.1 % (11.8-14.3); White Blood Cell 2.1 10^3/uL (4.4-10.8)
[2025-03-04 14:00] VITALS: PULSE 109; RESP 16; O2SAT 97
[2025-03-04 14:14] LABS: Alanine Aminotransferase 39 U/L (7-40); Albumin 4.3 g/dL (3.2-4.8); Anion Gap 10 (5-15); Aspartate Aminotransferase 19 U/L (13-40); Calcium 9.3 mg/dL (8.7-10.4); Carbon Dioxide 21 mmol/L (20-31); Lipase 24 U/L (12-53); Potassium 4.5 mmol/L (3.5-5.1); Sodium 140 mmol/L (136-145); Total Protein 7.2 g/dL (5.7-8.2)
[2025-03-04 14:15] LABS: Bilirubin, Total 1.1 mg/dL (0.2-1.0)
[2025-03-04 14:17] LABS: Alkaline Phosphatase 146 U/L (46-116); Blood Urea Nitrogen 38 mg/dL (9-23); Chloride 109 mmol/L (98-107); Glucose 148 mg/dL (74-106)
--- NOTE | 2025-03-04 14:20 | DVH ---
Indication: abd pain Technique: CT axial images of the abdomen and pelvis are obtained without contrast. Coronal and sagit raimundo reformats were obtained. Radiation Dose Information: CTDI volume is 8.02 mGy. Dose-length product is 452.14 mGy*cm Comparison: 10/17/2024 FINDINGS: There is limited interpretation of the abdomen and pelvis without administration of intravenous contr ast. The lung bases demonstrate atelectasis. Adrenal glands, spleen unremarkable in shape. Pneumobilia. Hepatic steatosis. Cholecystectomy. Find ings consistent with Whipple procedure. Partial pancreatectomy. Pancreatic body and tail unremarkab le in shape. No hydronephrosis/ nephrolithiasis. Moderate distention small bowel loops. Periumbilical/supraumbilical hernia containing small bowel loo ps measuring 4.3 x 2.3 cm without evidence for obstruction. Colonic diverticular disease. There is bowel wall thickening of the ascending, transverse, descendin g and sigmoid colon with mild surrounding stranding. Abdominal aortic atherosclerotic disease and tortuosity. Bladder partially distended. No free pelvic fluid. No inguinal lymphadenopathy. No aggressive osseous process. Thoracolumbar dextrocurvature. Moderate to advanced thoracolumbar dege nerative disc disease. IMPRESSION: Limited evaluation without contrast. 1. Diffuse colonic wall thickening with surrounding stranding with differential considerations includ ing colitis, inflammatory bowel disease. 2. Postsurgical changes likely related to whipple procedure 3. Hepatic steatosis. 4. Supraumbilical/periumbilical hernia containing small bowel loops measuring 4.3 x 2.3 cm. 5. Colonic diverticular disease. 6. Other findings as described.
--- NOTE | 2025-03-04 14:45 | ED.PDOC ---
History of Present Illness HPI Comments 75-year-old female complaining of nausea vomiting diarrhea x1 week. States last week Wednesday she received chemotherapy. Patient was has a history of pancreatic cancer. Previous Whipple surgery performed one year ago. States that she has been trying prescribed Zofran and she thinks Reglan, which have not been any help. Patient states over the last two three days symptoms have become worse and she was become more generalized weakness. Chief Complaint: Abdominal Pain Time Seen by MD: 13:06 Primary Care Provider: SEJAL Reviewed Notes: Nurses Notes Allergies: Coded Allergies: NO KNOWN ALLERGIES (Unverified , 06/28/24) Home Meds Active Scripts Potassium Chloride (Klor-Con 10) 10 Meq Tab, 10 MEQ PO DAILY, #10 TAB Prov:RAMA MAGALLON MD 10/24/24 Magnesium Oxide (MAGNESIUM OXIDE) 400 Mg Tab, 1 TAB PO DAILY, #10 TAB 0 Refills Prov:RAMA MAGALLON MD 10/24/24 Hydrocodone-Acetaminophen (Hydrocodone Bitartrate/AC 5-325 mg) 1 Tab Tab, 1 TAB PO Q6HP PRN, #30 TAB Prov:RAMA MAGALLON MD 10/24/24 Pancreatic Enzymes (Pancreaze) 16,800 [place], [address] UNT PO TID for 30 Days, #90 CAP Prov:RAMA MAGALLON MD 07/03/24 Reported Medications Ondansetron HCl (Ondansetron Hydrochloride) 4 Mg Tab, 1 TAB PO Q8HPRN PRN for NAUSEA / VOMITING 06/29/24 Pantoprazole Sodium Sesquihydr (Pantoprazole Sodium) 40 Mg Tab, 1 TAB PO DAILY 06/29/24 Information Source: Patient Mode of Arrival: Ambulatory Past Medical History PAST MEDICAL HISTORY: Cancer [employer] History: No Pertinent [employer] History Family History Family History: Reviewed,noncontributory to illness, No family hx of Cancer, No family hx of DM, No family hx of Heart darío, No family hx of HTN, No family hx ofKidney darío, No family hx of Liver darío, No family hx of Lung darío, No family hx of Stroke Social History Smoker: Unknown Alcohol: Unknown Drugs: Unknown Lives In: Home Constitutional: denies: chills, diaphoresis, fatigue, fever, malaise, sweats, weakness, others EENTM: denies: blurred vision, double vision, ear bleeding, ear discharge, ear drainage, ear pain, ear ringing, eye pain, eye redness, hearing loss, mouth pain, mouth swelling, nasal discharge, nose bleeding, nose congestion, nose pain, photophobia, tearing, throat pain, throat swelling, voice changes, others Respiratory: denies: cough, hemoptysis, orthopnea, SOB at rest, shortness of breath, SOB with excertion, stridor, wheezing, others Cardiovascular: denies: chest pain, dizzy spells, diaphoresis, Dyspnea on exertion, edema, irregular heart beat, left arm pain, lightheadedness, palpitations, PND, syncope, others Gastrointestinal: reports: diarrhea, melena, nausea, vomiting; denies: abdomen distended, abdominal pain, blood streaked bowels, constipated, dysphagia, difficulty swallowing, hematemesis, poor appetite, poor fluid intake, rectal bleeding, rectal pain, others Genitourinary: denies: abnormal vagina bleeding, burning, dyspareunia, dysuria, flank pain, frequency, hematuria, incontinence, pain, , vagina discharge, urgency, others Neurological: denies: dizziness, fainting, headache, left sided numbness, left sided weakness, numbness, paresthesia, pre-existing deficit, right sided numbness, right sided weakness, seizure, speech problems, tingling, tremors, weakness, others Musculoskeletal: denies: back pain, gout, joint pain, joint swelling, muscle pain, muscle stiffness, neck pain, others Physical Exam General Appearance: Moderate Distress, Thin HEENT: Normal ENT Inspection, Pharynx Normal, TMs Normal Neck: Full Range of Motion, Non-Tender, Normal, Normal Inspection Respiratory: Chest Non-Tender, Lungs Clear, No Accessory Muscle Use, No Respiratory Distress, Normal Breath Sounds Cardiovascular: No Edema, No JVD, No Murmur, No Gallop, Normal Peripheral Pulses, Regular Rate/Rhythm Breast Exam: Deferred Gastrointestinal: No Organomegaly, Non Tender, No Pulsatile Mass, Normal Bowel Sounds, Soft Genitalia: Deferred Pelvic: Deferred Rectal: Deferred Extremities: No calf tenderness, Normal capillary refill, Normal inspection, Normal range of motion, Non-tender, No pedal edema Musculoskeletal : Apperance: Normal Neurologic: Alert, dinkey engineer II-XII nml as Tested, No Motor Deficits, Normal Affect, Normal Mood, No Sensory Deficits Cerebellar Function: Normal Reflexes: Normal Skin: Dry, Normal Color, Warm Lymphatic: No Adenopathy Was a procedure done? Was a procedure done?: No Differential Dx Considerations may include: Dehydration, tachycardic, pancreatic cancer, X-Ray, Labs, Meds, VS Vital Signs Date Time Temp Pulse Resp B/P (MAP) Pulse Ox O2 Delivery O2 Flow Rate FiO2 03/04/25 14:00 109 16 97 Room Air* 0 21 03/04/25 14:00 97.6 109 16 120/62 (81) 97 97.6 03/04/25 13:36 117 20 98 Room Air* 0 21 03/04/25 13:36 97.8 117 20 133/82 (99) 98 97.8 03/04/25 13:23 97.6 126 16 116/94 (101) 96 97.6 Lab Test 03/04/25 13:31 03/04/25 13:12 Range/Units White Blood Count 2.1 L 4.4-10.8 10^3/uL Red Blood Count 5.15 4.0-5.20 10^6/uL Hemoglobin 15.1 12.2-16.2 g/dL Hematocrit 44.7 36.0-46.0 % Mean Corpuscular Volume 86.9 80.0-100.0 fL Mean Corpuscular Hemoglobin 29.3 28.0-32.0 pg Mean Corpuscular Hemoglobin Concent 33.7 32.0-36.0 g/dL Red Cell Distribution Width 13.1 11.8-14.3 % Platelet Count 86 L 140-450 10^3/uL Mean Platelet Volume 9.4 6.9-10.8 fL Neutrophils (%) (Auto) 35.4 L 37.0-80.0 % Lymphocytes (%) (Auto) 52.2 H 10.0-50.0 % Monocytes (%) (Auto) 6.2 0.0-12.0 % Eosinophils (%) (Auto) 6.0 0.0-7.0 % Basophils (%) (Auto) 0.2 0.0-2.0 % Neutrophils # (Auto) 0.7 L 1.6-8.6 10 ^3/uL Lymphocytes # (Auto) 1.1 0.4-5.4 10 ^3/uL Monocytes # (Auto) 0.1 0-1.3 10 ^3/uL Eosinophils # (Auto) 0.1 0-0.8 10 ^3/uL Basophils # (Auto) 0 0-0.2 10 ^3/uL Nucleated Red Blood Cells 0.1 % Sodium Level 140 136-145 mmol/L Potassium Level 4.5 3.5-5.1 mmol/L Chloride Level 109 H 98-107 mmol/L Carbon Dioxide Level 21 20-31 mmol/L Anion Gap 10 5-15 Blood Urea Nitrogen 38 H 9-23 mg/dL Creatinine 1.46 H 0.550-1.02 mg/dL Glomerular Filtration Rate Calc 37 >90 mL/min BUN/Creatinine Ratio 26.0 H 10.0-20.0 Serum Glucose 148 H 74-106 mg/dL Calcium Level 9.3 8.7-10.4 mg/dL Total Bilirubin 1.1 H 0.2-1.0 mg/dL Aspartate Amino Transferase (AST) 19 13-40 U/L Alanine Aminotransferase (ALT) 39 7-40 U/L Alkaline Phosphatase 146 H 46-116 U/L Total Protein 7.2 5.7-8.2 g/dL Albumin 4.3 3.2-4.8 g/dL Lipase 24 12-53 U/L POC Glucose 161 H 70-106 mg/dl Current Medications Medications (Trade) Dose Ordered Sig/Shelley Route Start Time Stop Time Status Last Admin Sodium Chloride 1,000 ml @ 1,000 mls/hr Q1H ONCE IV 03/04/25 13:15 03/04/25 14:14 DC 03/04/25 13:29 Prochlorperazine Edisylate (Compazine Inj) 5 mg ONCE ONCE IV 03/04/25 13:15 03/04/25 13:16 DC 03/04/25 13:29 X-Ray, Labs, Meds, VS Comment Patient will be admitted for dehydration, cyclical vomiting, abdominal pain Imaging: X-rays and CT scans were reviewed and interpreted by this provider, imaging shows no fractures and no pathological disease. Pending radiology review. Laboratory: Labs reviewed and interpreted by this provider. Signs of acute kidney injury and dehydration Patient has prior medical visits reviewed. Med reconciliation performed Vital signs reviewed Time of 1ST Reevaluation: 14:44 Reevaluation 1ST: Unchanged Patient Education/Counseling: Diagnosis, Treatment Family Education/Counseling: Diagnosis Departure 1 Departure Time of Disposition: 14:44 Impression: Primary Impression: Dehydration Additional Impressions: Nausea & vomiting Qualified Codes: R11.2 - Nausea with vomiting, unspecified ORA (acute kidney injury) Disposition: 09 ADMITTED INPATIENT Condition: Stable Critical Care Note Critical Care Time?: No Stability Stability form required: No Heart Score Heart Score: Heart Score Response (Comments) Value History N/A 0 EKG N/A 0 Age N/A 0 Risk Factors N/A 0 Troponin N/A 0 Total 0 KARELY CRUMP Mar 04, 2025 14:45
[2025-03-04 20:20] VITALS: PULSE 130; RESP 16; O2SAT 96
--- NOTE | 2025-03-04 23:04 | DVHHPRES ---
History of Present Illness Resident Creating Document: YOJANA RINCON RESIDENT History of Present Illness Nathalia Cabrera is a 75 year old female patient who presents to the ED with chief complaint of nausea, vomiting, diarrhea, abdominal pain and chills for the past week, per patient her symptoms were triggered after receiving 2nd session of chemotherapyt his past Wednesday (02/26, continuous infusion until 02/27). Patient denies palpitation, syncope, chest pain, dyspnea, constipation, bleeding, dysuria, leg swelling, sick contacts, recent travel and motor or sensory deficits Past medical history: Diabetes controlled with diet, pancreatic cancer status post surgery and chemotherapy (had a total of two sessions of chemo), heart murmur, benign cyst and thyroid, fatty liver, chronic kidney disease stage 3, benign breast tumor status postop Surgical history: Whipple pancreatic surgery on 05/2024, right wrist surgery, breast lumpectomy, right subclavian port-a-cath Family history: Father due to lung cancer Social history: Lives in [place] alone. Per patient she can not complete daily activities after diagnosis of pancreatic cancer. Denies current tobacco, alcohol and other drug abuse. Started smoking marijuana due to nausea, per patient it was mildly improved, last dose of marijuana the night of her admission. Allergies: Denies Home medication: Chemotherapy, hydrocodone acetaminophen, magnesium, ondansetron, pancreatic enzymes, pantoprazole, potassium Patient seen and examined at bedside. Currently has no new complaints, nausea and vomiting have improved after IV prochlorperazine. We will try to advance diet tomorrow in the a.m.. Past Medical History Per HPI Family History Per HPI Past Social History Per HPI Review of Systems Review of Systems Per HPI Allergies: Coded Allergies: NO KNOWN ALLERGIES (Unverified , 06/28/24) Medications Current Medications Medications Dose Ordered Sig/Shelley Route Start Time Stop Time Status Last Admin Dose Admin Ondansetron HCl 4 mg Q4HP PRN IV 03/04/25 23:00 UNV Morphine Sulfate 2 mg Q4HPRN PRN IV 03/04/25 23:00 UNV Enoxaparin Sodium 40 mg DAILY SC 03/05/25 10:00 UNV Exam Vital Signs Vital Signs Date Time Temp Pulse Resp B/P (MAP) Pulse Ox O2 Delivery O2 Flow Rate FiO2 03/04/25 22:00 120 112/70 (84) 93 03/04/25 20:20 16 Room Air* 0 21 03/04/25 20:20 98.0 98.0 Exam Patient lying in bed, in no acute distress General: Lucid, afebrile, mucosae are dry Cardiovascular: Normal S1 and S2. Holosystolic murmur best heard in apex which radiates towards axilla intensity 2/6. No gallops or rubs Respiratory: Normal ventilation mechanics. Clear lung sounds on auscultation Abdomen: Soft, nontender, no organomegaly, normal bowel sounds MSK/skin: Mobilizes 4 limbs. Skin is dry and warm Neurological: Oriented in 3 spheres. No motor no sensitive deficits. Pupils are isocoric and reactive Labs/Xrays Labs Test 03/04/25 13:31 03/04/25 13:12 Range/Units White Blood Count 2.1 L 4.4-10.8 10^3/uL Red Blood Count 5.15 4.0-5.20 10^6/uL Hemoglobin 15.1 12.2-16.2 g/dL Hematocrit 44.7 36.0-46.0 % Mean Corpuscular Volume 86.9 80.0-100.0 fL Mean Corpuscular Hemoglobin 29.3 28.0-32.0 pg Mean Corpuscular Hemoglobin Concent 33.7 32.0-36.0 g/dL Red Cell Distribution Width 13.1 11.8-14.3 % Platelet Count 86 L 140-450 10^3/uL Mean Platelet Volume 9.4 6.9-10.8 fL Neutrophils (%) (Auto) 35.4 L 37.0-80.0 % Lymphocytes (%) (Auto) 52.2 H 10.0-50.0 % Monocytes (%) (Auto) 6.2 0.0-12.0 % Eosinophils (%) (Auto) 6.0 0.0-7.0 % Basophils (%) (Auto) 0.2 0.0-2.0 % Neutrophils # (Auto) 0.7 L 1.6-8.6 10 ^3/uL Lymphocytes # (Auto) 1.1 0.4-5.4 10 ^3/uL Monocytes # (Auto) 0.1 0-1.3 10 ^3/uL Eosinophils # (Auto) 0.1 0-0.8 10 ^3/uL Basophils # (Auto) 0 0-0.2 10 ^3/uL Nucleated Red Blood Cells 0.1 % Sodium Level 140 136-145 mmol/L Potassium Level 4.5 3.5-5.1 mmol/L Chloride Level 109 H 98-107 mmol/L Carbon Dioxide Level 21 20-31 mmol/L Anion Gap 10 5-15 Blood Urea Nitrogen 38 H 9-23 mg/dL Creatinine 1.46 H 0.550-1.02 mg/dL Glomerular Filtration Rate Calc 37 >90 mL/min BUN/Creatinine Ratio 26.0 H 10.0-20.0 Serum Glucose 148 H 74-106 mg/dL Calcium Level 9.3 8.7-10.4 mg/dL Total Bilirubin 1.1 H 0.2-1.0 mg/dL Aspartate Amino Transferase (AST) 19 13-40 U/L Alanine Aminotransferase (ALT) 39 7-40 U/L Alkaline Phosphatase 146 H 46-116 U/L Total Protein 7.2 5.7-8.2 g/dL Albumin 4.3 3.2-4.8 g/dL Lipase 24 12-53 U/L POC Glucose 161 H 70-106 mg/dl Assessment/Plan Assessment/Plan Assessment: Intractable nausea and vomiting probably secondary to chemotherapy Colitis symptomatic by diarrhea Acute kidney injury hemodynamically mediated on CKD stage 3 Pancreatic cancer status post Whipple surgery and 2nd session of chemotherapy Bicytopenia (leukopenia and thrombocytopenia) Pancreatic insufficiency Diabetes Marijuana use Probable mitral valvular disease Plan: Completed abdomen and pelvis CT which showed colitis, postop of Rule Whipple pancreatic surgery, supraumbilical hernia with no signs of incarceration, diverticulosis. Currently under IV fluids and empiric IV antibiotic (ceftriaxone and metronidazole) Did not continue pantoprazole due to colitis. Ordered C diff toxin. Patient currently continues with bowel rest, we will evaluate oral tolerance in the a.m. Ordered physical therapy evaluation, per patient she can not complete daily ac tivities alone. Evaluate eventual discharge to SNF for physical therapy sessions. Ordered echocardiogram to evaluate valvular disease Goals of care discussed with patient for over 18 minutes: Full code status Discussed plan with Dr. Veloz, patient and nurses: Continue with bowel rest, IV fluids and empiric IV antibiotic. We will evaluate oral tolerance in the a.m.. Ordered physical therapy sessions. Patient has poor prognosis due to underlying pathology. Plan discussed with: Patient, Other (Nurses) My Orders Orders - YOJANA RINCON Procedure Category Date Status Time Admit ADMIT 03/04/25 Transmitted 22:58 Code Status CODE 03/04/25 Transmitted 22:58 Vital Signs RAYNA 03/04/25 In Process 22:58 Review Orders With RAYNA 03/04/25 In Process Adm. 22:58 Npo (Nothing By DIET 03/05/25 Transmitted Mouth) Diet Breakfast Notify Md Of Changes RAYNA 03/04/25 In Process From Base 22:58 Advance Directive RAYNA 03/04/25 In Process 22:58 Chest Two Views XY 03/05/25 Logged Routine 04:00 Echo 2d Mode Cardiac US 03/04/25 Logged DOP 22:58 Patient Condition ORDERS 03/04/25 Transmitted 22:58 Allergies RAYNA 03/04/25 In Process 22:58 Ondansetron Hcl PHA 03/04/25 Logged (Zofran) 23:00 Morphine Sulfate PHA 03/04/25 Logged Injection 23:00 Enoxaparin Sodium PHA 03/05/25 Logged (Lovenox) 10:00 Oxygen By Nasal RT 03/04/25 Transmitted Cannula 22:58 Stat Ekg For Chest RAYNA 03/04/25 In Process Pain 22:58 Notify Md Of Changes RAYNA 03/04/25 In Process From Base 22:58 Street Commissioner For RAYNA 03/04/25 In Process 24 Hours 22:58 Emergency Dysrhythmia RAYNA 03/04/25 In Process Protocol 22:58 Rhythm Strips Once RAYNA 03/04/25 In Process Every Shift 22:58 Date of Service: Mar 05, 2025 Billing Provider: NAYELI VELOZ MD Common Visit Codes: [id number] INP/OBS CARE (HIGH) YOJANA RINCON RESIDENT Mar 04, 2025 23:04 NAYELI VELOZ MD Mar 12, 2025 22:04
[2025-03-04 23:54] LABS: Magnesium 2.1 mg/dL (1.6-2.6)
[2025-03-04] MEDS: ONDANSETRON HCL 4 MG/2 ML VIAL IV PRN (23:58)
[2025-03-04] MEDS: SODIUM CHLORIDE 0.9% 1,000 ML IV SCH (23:58)
[2025-03-05] VITALS (8 sets, daily range): BP systolic 104–159; BP diastolic 69–92; PULSE 120–151; RESP 14–18; TEMP 98.1–99.5; O2SAT 94–96
[2025-03-05 00:14] LABS: Urine Bacteria FEW /hpf (None Seen); Urine Blood 2+ /uL (Negative); Urine Clarity Clear (Clear); Urine Color Yellow (Yellow); Urine Protein, UAD TRACE (Negative); Urine Specific Gravity 1.024 (1.001-1.035); Urine Squamous Epithelial Cell FEW /hpf (<5); Urine Urobilinogen Normal (Negative); Urine WBC 2 /HPF (0-5); Urine pH 5.5 (5.0-9.0)
[2025-03-05 00:21] LABS: Cannabinoid Screen, Urine Pos (NEGATIVE)
[2025-03-05 00:29] LABS: Amphetamine Screen, Urine Neg (NEGATIVE); Barbiturate Scree,Urine Neg (NEGATIVE); Benzodiazephine Screen, Urine Neg (NEGATIVE); Cocaine Screen, Urine Neg (NEGATIVE); Opiate Scree,Urine Neg (NEGATIVE); Phencyclidine Screen, Urine Neg (NEGATIVE)
--- NOTE | 2025-03-05 01:06 | DVH ---
CHEST RADIOGRAPH Indication: Abdominal pain Technique: Single frontal view of the chest was obtained COMPARISON: XY CHEST PORTABLE on DOS: 10/17/24 FINDINGS: Lines and Tubes: Right port-A-Cath tip projects over the cavoatrial junction. Lungs: Clear. Mild right hemidiaphragmatic elevation. Pleura: No effusion. No pneumothorax. Cardiomediastinal contours: Unremarkable Bones: Unremarkable IMPRESSION: 1. No acute disease.
[2025-03-05] MEDS: metroNIDAZOLE 500MG/100ML 100 ML IV ONE (01:27)
[2025-03-05] MEDS: cefTRIAXone 1GM/50ML D5W 50 ML IV ONE (03:32)
[2025-03-05 04:00] LABS: Hemoglobin 12.8 g/dL (12.2-16.2); Mean Corpuscular Volume 86.6 fL (80.0-100.0)
[2025-03-05 04:09] LABS: Hematocrit 37.3 % (36.0-46.0); Mean Corpuscular Hemoglobin 29.7 pg (28.0-32.0); Mean Corpuscular Hgb Conc. 34.3 g/dL (32.0-36.0); Platelet Count (auto) 70 10^3/uL (140-450)
[2025-03-05 04:18] LABS: Alanine Aminotransferase 30 U/L (7-40); Albumin 3.6 g/dL (3.2-4.8); Anion Gap 8 (5-15); Aspartate Aminotransferase 15 U/L (13-40); BUN/Creatinine Ratio 24.3 (10.0-20.0); Bilirubin, Total 0.8 mg/dL (0.2-1.0); Carbon Dioxide 21 mmol/L (20-31); Potassium 4.3 mmol/L (3.5-5.1); Sodium 142 mmol/L (136-145)
[2025-03-05 04:20] LABS: Alkaline Phosphatase 117 U/L (46-116); Blood Urea Nitrogen 27 mg/dL (9-23); Calcium 8.4 mg/dL (8.7-10.4); Chloride 113 mmol/L (98-107); Glucose 135 mg/dL (74-106)
[2025-03-05 04:34] LABS: Basophils % (manual) 0 (0.0-2.0); Blast Cells 0; Metamyelocytes % 0; Myelocytes % 0; Promyelocytes % 0; Reactive Lymphocytes 0; White Blood Cell 1.4 10^3/uL (4.4-10.8)
[2025-03-05] MEDS ORDERED: ZOFR4T PO (04:36)
[2025-03-05] MEDS ORDERED: PROC10TA6 PO (04:50)
[2025-03-05] MEDS: metroNIDAZOLE 500MG/100ML 100 ML IV SCH (05:31)
[2025-03-05] MEDS: MORPHINE SULFATE INJ 2 MG/ml SYRG IV PRN (05:32)
[2025-03-05] MEDS: PANCREATIC ENZYMES PO SCH (06:00)
--- NOTE | 2025-03-05 06:15 | ECG ---
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
[2025-03-05 07:02] LABS: Band Neutrophils % (manual) 1; Eosinophils % (manual) 7 (0-7); Lymphocytes % (manual) 68 (10.0-50.0)
[2025-03-05 07:03] LABS: Monocytes % (manual) 10 (0-12)
[2025-03-05 07:04] LABS: Platelet Estimate Decreased
[2025-03-05 07:05] LABS: Large Platelets FEW
--- NOTE | 2025-03-05 09:51 | DVHPN2 ---
Subjective 75-year-old female with a history of pancreatic cancer status post Whipple surgery, status post 2nd session of chemotherapy a week ago came after the chemo with nausea and vomiting and diarrhea and abdominal pain and dehydration Today she is neutropenic white count is 1.4 platelets are 70 She also had ORA with a creatinine of 1 point 4 which improved today to 1.1 She is thirsty She is hungry however and would like to start diet She is still having some diarrhea but is getting better No vomiting today Abdominal pain is still diffuse Changes from previous H/P or p: Changes Objective Vitals Vital Signs Date Time Temp Pulse Resp B/P (MAP) Pulse Ox O2 Delivery O2 Flow Rate FiO2 03/05/25 09:00 98.8 120 17 155/89 (111) 96 98.8 03/05/25 04:13 Room Air* 0 21 Intake/Output Intake and Output 03/05/25 07:00 Intake Total 2900 ml Balance 2900 ml Intake Oral 0 ml IV Total 2900 ml General Appearance: Alert, Oriented X3, Cooperative, No acute distress Lungs: Clear to auscultation, Normal air movement Cardiovascular: Regular rate, Normal S1, Normal S2 Abdomen: Normal bowel sounds, Soft, Other (Generalized diffuse mild tenderness) Extremities: No edema Medications Current Medications Medications Dose Ordered Sig/Shelley Route Start Time Stop Time Status Last Admin Dose Admin Ondansetron HCl 4 mg Q4HP PRN IV 03/04/25 23:00 03/05/25 04:18 4 MG Morphine Sulfate 2 mg Q4HPRN PRN IV 03/04/25 23:00 03/05/25 05:32 2 MG Enoxaparin Sodium 40 mg DAILY SC 03/05/25 10:00 Future Hold Prochlorperazine Edisylate 5 mg Q4HPRN PRN IV 03/04/25 23:15 Sodium Chloride 1,000 ml @ 100 mls/hr Q10H IV 03/04/25 23:15 03/04/25 23:58 100 MLS/HR Ceftriaxone Sodium 50 ml @ 100 mls/hr DAILY@09 IV 03/06/25 09:00 Metronidazole 100 ml @ 100 mls/hr Q8HR IV 03/05/25 06:00 03/05/25 05:31 100 MLS/HR Patient Own Medication 16,800 unt TID PO 03/05/25 06:00 Laboratory Results Laboratory Tests 03/05/25 03:35 Chemistry Test 03/04/25 13:31 03/05/25 03:35 Albumin 4.3 g/dL (3.2-4.8) 3.6 g/dL (3.2-4.8) Calcium Level 9.3 mg/dL (8.7-10.4) 8.4 mg/dL (8.7-10.4) L Magnesium Level 2.1 mg/dL (1.6-2.6) Phosphorus Level 4.0 mg/dL (2.4-5.1) Total Protein 7.2 g/dL (5.7-8.2) 6.0 g/dL (5.7-8.2) Lipid panel Test 03/04/25 13:31 Cholesterol Level 116 mg/dL (< 200) HDL Cholesterol 44 mg/dL (40-59) Lipase 24 U/L (12-53) Triglycerides Level 85 mg/dL (< 150) LFT Test 03/04/25 13:31 03/05/25 03:35 Alanine Aminotransferase (ALT) 39 U/L (7-40) 30 U/L (7-40) Alkaline Phosphatase 146 U/L (46-116) H 117 U/L (46-116) H Aspartate Amino Transferase (AST) 19 U/L (13-40) 15 U/L (13-40) Total Bilirubin 1.1 mg/dL (0.2-1.0) H 0.8 mg/dL (0.2-1.0) HgA1c, TSH Test 03/04/25 13:31 03/05/25 03:35 Thyroid Stimulating Hormone (TSH) 0.98 uIU/mL (0.55-4.78) Hemoglobin A1c 6.2 % A1C (<5.7) H Urinalysis Test 03/04/25 23:53 Urine Color Yellow (Yellow) Urine Clarity Clear (Clear) Urine pH 5.5 (5.0-9.0) Urine Specific [place] 1.024 (1.001-1.035) Urine Protein Trace (Negative) H Urine Ketones Negative (Negative) Urine Blood 2+ /uL (Negative) H Urine Nitrite Negative (Negative) Urine Bilirubin Negative (Negative) Urine Urobilinogen Normal mg/dL (Negative) Urine Leukocyte Esterase Negative /uL (Negative) Urine RBC 3 /hpf (0 - 4) Urine Microscopic WBC 2 /HPF (0-5) Urine Squamous Epithelial Cells Few /hpf (<5) Urine Bacteria Few /hpf (None Seen) H Urine Glucose Normal mg/dL (Normal) Assessment/Plan Assessment/Plan Nausea and vomiting diarrhea secondary to chemotherapy History of pancreatic cancer status post Whipple and chemotherapy Acute kidney injury due to vasomotor nephropathy and dehydration Dehydration, improving Abdominal pain Acute colitis, Rule out C diff colitis Chronic kidney disease Type 2 diabetes Neutropenia Thrombocytopenia Plan Continue IV fluids Start clear liquid diet Check the stools for C diff IV antibiotics with Rocephin and Flagyl Pain management with morphine p.r.n. Zofran for nausea or vomiting Protonix for GI prophylaxis Lovenox for DVT prophylaxis Thrombocytopenia: Monitor closely Neutropenia: Neutropenic precautions Monitor closely The rest of the management will depend on the hospital course Plan discussed with: Patient Date of Service: Mar 05, 2025 Billing Provider: RAMA MAGALLON MD Common Visit Codes: NOT BILLABLE RAMA MAGALLON MD Mar 05, 2025 09:51
[2025-03-05] MEDS ORDERED: ENOXAPARIN SOD 40 MG/0.4 ML SYRINGE SC SCH (10:00)
--- NOTE | 2025-03-05 11:08 | ECG ---
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
--- NOTE | 2025-03-05 12:30 | DVHSR ---
APPROVED REPORT EXAM: Two-dimensional and M-mode echocardiogram with Doppler and color Doppler. Blood Pressure: 152/92 mmHg INDICATION Apical Murmur RISK FACTORS Height: 66, Weight: 149 DIMENSIONS LVDd (3.8-5.7cm)LA (2D)3.0 (1.9-4.0cm)Aortic Root (2.0-3.7cm) EF (%) 69.0 (55-70%)Rt. Atrium3.4 (1.9-4.0cm)Asc. Aorta cm Mitral Valve MitralMitral Stenosis E wave0.98m/sMV Mean GR.mmHg E/A ratio0.02D MVAcm2 Aortic Valve Aortic ValveAortic Stenosis V11.02m/Vivek Mean GR.4mmHg V21.31m/Vivek Peak GR.7mmHg Tricuspid Valve TR Velocity2.48m/s [id number] Other Information Technically limited study due to body habitus, patient position and high heart rate. Conclusion lvef 75% hyperdynamic biv function normal lv function normal atria no severe valve abnormaliites noted
[2025-03-05] MEDS: PROCHLORPERAZINE EDISYLATE 5 MG/ML 2ML VIAL IV PRN (13:23)
[2025-03-05] MEDS: hydrALAZINE HCL 20 MG/ML VL IV PRN (13:23)
[2025-03-05] MEDS: ENOXAPARIN SOD 40 MG/0.4 ML SYRINGE SC ONE (17:11)
[2025-03-05] MEDS: SODIUM CHLORIDE 0.9% 500 ML IV ONE (17:11)
[2025-03-05 19:47] LABS: Potassium 3.8 mmol/L (3.5-5.1)
[2025-03-05 19:54] LABS: Magnesium 1.7 mg/dL (1.6-2.6)
[2025-03-06] VITALS (9 sets, daily range): BP systolic 107–138; BP diastolic 67–87; PULSE 110–130; RESP 16–18; TEMP 97.8–98.4; O2SAT 95–98
[2025-03-06 06:27] LABS: Hemoglobin 11.5 g/dL (12.2-16.2)
[2025-03-06 06:30] LABS: Hematocrit 33.1 % (36.0-46.0); Mean Corpuscular Hemoglobin 30.1 pg (28.0-32.0); Mean Corpuscular Hgb Conc. 34.8 g/dL (32.0-36.0); Mean Corpuscular Volume 86.5 fL (80.0-100.0); Platelet Count (auto) 51 10^3/uL (140-450); Red Blood Cells 3.82 10^6/uL (4.0-5.20); Red Cell Distribution Width 13.1 % (11.8-14.3)
[2025-03-06 06:35] LABS: White Blood Cell 1.5 10^3/uL (4.4-10.8)
[2025-03-06 06:37] LABS: Basophils % (manual) 0 (0.0-2.0); Blast Cells 0; Metamyelocytes % 0; Myelocytes % 0; Promyelocytes % 0; Reactive Lymphocytes 0
[2025-03-06 06:47] LABS: Alanine Aminotransferase 22 U/L (7-40); Alkaline Phosphatase 83 U/L (46-116); Anion Gap 8 (5-15); BUN/Creatinine Ratio 15.3 (10.0-20.0); Blood Urea Nitrogen 17 mg/dL (9-23); Carbon Dioxide 23 mmol/L (20-31); Magnesium 1.8 mg/dL (1.6-2.6); Potassium 3.8 mmol/L (3.5-5.1); Sodium 142 mmol/L (136-145)
[2025-03-06 06:48] LABS: Bilirubin, Total 0.5 mg/dL (0.2-1.0)
[2025-03-06 06:51] LABS: Albumin 3.1 g/dL (3.2-4.8); Aspartate Aminotransferase 9 U/L (13-40); Calcium 8.6 mg/dL (8.7-10.4); Chloride 111 mmol/L (98-107); Glucose 128 mg/dL (74-106); Total Protein 5.3 g/dL (5.7-8.2)
[2025-03-06 07:34] LABS: Band Neutrophils % (manual) 7; Eosinophils % (manual) 4 (0-7); Lymphocytes % (manual) 74 (10.0-50.0); Monocytes % (manual) 7 (0-12); Platelet Estimate Decreased
[2025-03-06] MEDS: cefTRIAXone 1GM/50ML D5W 50 ML IV SCH (09:00)
[2025-03-06] MEDS: ENOXAPARIN SOD 40 MG/0.4 ML SYRINGE SC SCH (09:02)
--- NOTE | 2025-03-06 10:47 | DVHPN2 ---
Subjective She is still having nausea and vomiting and abdominal pain Magnesium is low at 1.8 She is still tachycardic White count 1.5 Platelets 51 Poor appetite Changes from previous H/P or p: Changes Objective Vitals Vital Signs Date Time Temp Pulse Resp B/P (MAP) Pulse Ox O2 Delivery O2 Flow Rate FiO2 03/06/25 09:00 97.8 115 17 120/67 (84) 97 97.8 03/05/25 19:49 Room Air* 0 21 Intake/Output Intake and Output 03/06/25 07:00 Intake Total 1710 ml Balance 1710 ml Intake Oral 810 ml IV Total 900 ml # Voids 4 General Appearance: Alert, Oriented X3, Cooperative, No acute distress Lungs: Clear to auscultation, Normal air movement Cardiovascular: Regular rate, Normal S1, Normal S2 Abdomen: Normal bowel sounds, Soft, Other (Generalized diffuse mild tenderness) Extremities: No edema Medications Current Medications Medications Dose Ordered Sig/Shelley Route Start Time Stop Time Status Last Admin Dose Admin Ondansetron HCl 4 mg Q4HP PRN IV 03/04/25 23:00 03/06/25 09:02 4 MG Morphine Sulfate 2 mg Q4HPRN PRN IV 03/04/25 23:00 03/05/25 21:55 2 MG Prochlorperazine Edisylate 5 mg Q4HPRN PRN IV 03/04/25 23:15 03/05/25 21:55 5 MG Sodium Chloride 1,000 ml @ 100 mls/hr Q10H IV 03/04/25 23:15 03/04/25 23:58 100 MLS/HR Ceftriaxone Sodium 50 ml @ 100 mls/hr DAILY@09 IV 03/06/25 09:00 03/06/25 09:00 100 MLS/HR Metronidazole 100 ml @ 100 mls/hr Q8HR IV 03/05/25 06:00 03/06/25 05:37 100 MLS/HR Patient Own Medication 16,800 unt TID PO 03/05/25 06:00 Hydralazine HCl 10 mg Q6HP PRN IV 03/05/25 13:00 03/05/25 13:23 10 MG Enoxaparin Sodium 40 mg DAILY SC 03/06/25 10:00 03/06/25 09:02 40 MG Laboratory Results Laboratory Tests 03/06/25 05:09 Chemistry Test 03/05/25 19:24 03/06/25 05:09 Magnesium Level 1.7 mg/dL (1.6-2.6) 1.8 mg/dL (1.6-2.6) Albumin 3.1 g/dL (3.2-4.8) L Calcium Level 8.6 mg/dL (8.7-10.4) L Total Protein 5.3 g/dL (5.7-8.2) L LFT Test 03/06/25 05:09 Alanine Aminotransferase (ALT) 22 U/L (7-40) Alkaline Phosphatase 83 U/L (46-116) Aspartate Amino Transferase (AST) 9 U/L (13-40) L Total Bilirubin 0.5 mg/dL (0.2-1.0) Urinalysis Test 03/04/25 23:53 Urine Color Yellow (Yellow) Urine Clarity Clear (Clear) Urine pH 5.5 (5.0-9.0) Urine Specific [place] 1.024 (1.001-1.035) Urine Protein Trace (Negative) H Urine Ketones Negative (Negative) Urine Blood 2+ /uL (Negative) H Urine Nitrite Negative (Negative) Urine Bilirubin Negative (Negative) Urine Urobilinogen Normal mg/dL (Negative) Urine Leukocyte Esterase Negative /uL (Negative) Urine RBC 3 /hpf (0 - 4) Urine Microscopic WBC 2 /HPF (0-5) Urine Squamous Epithelial Cells Few /hpf (<5) Urine Bacteria Few /hpf (None Seen) H Urine Glucose Normal mg/dL (Normal) Assessment/Plan Assessment/Plan Nausea and vomiting diarrhea secondary to chemotherapy History of pancreatic cancer status post Whipple and chemotherapy Acute kidney injury due to vasomotor nephropathy and dehydration Dehydration, improving Abdominal pain Acute colitis, Rule out C diff colitis Chronic kidney disease Type 2 diabetes Neutropenia Thrombocytopenia Plan Continue IV fluids Start clear liquid diet Check the stools for C diff IV antibiotics with Rocephin and Flagyl Pain management with morphine p.r.n. Zofran for nausea or vomiting Protonix for GI prophylaxis Lovenox for DVT prophylaxis Thrombocytopenia: Monitor closely Neutropenia: Neutropenic precautions Monitor closely The rest of the management will depend on the hospital course 03/06/2025: Acute kidney injury and dehydration: Continue IV fluids Dehydration: Bolus 1 L normal saline Add Glucerna Hypomagnesemia: Replace magnesium IV Acute colitis: IV antibiotics Rocephin and Flagyl Neutropenia: Neutropenic precautions Thrombocytopenia monitoring, hold Lovenox Tachycardia: Continue IV fluids, echocardiogram showed normal ejection fraction Protein malnutrition: Glucerna Plan discussed with: Patient My Orders Orders - RAMA MAGALLON MD Procedure Category Date Status Time Hydralazine Injection PHA 03/05/25 In Process (Apresoline Inject 13:00 * Cardiology Consult CONS 03/05/25 Transmitted 16:29 Enoxaparin Sodium PHA 03/06/25 In Process (Lovenox) 10:00 Date of Service: Mar 06, 2025 Billing Provider: RAMA MAGALLON MD Common Visit Codes: NOT BILLABLE RAMA MAGALLON MD Mar 06, 2025 10:47
[2025-03-06] MEDS: Glucerna Carbsteady SHAKE Vanilla 8oz PO SCH (12:00)
[2025-03-06] MEDS: FAMOTIDINE (10MG/ML) 2ML VL IV ONE (12:32)
[2025-03-06] MEDS: MAGNESIUM SULFATE 1GM/100ML 100 ML IV SCH (12:36)
[2025-03-06] MEDS: SODIUM CHLORIDE 0.9% 1,000 ML IV ONE (12:37)
[2025-03-07] VITALS (8 sets, daily range): BP systolic 124–140; BP diastolic 72–87; PULSE 94–110; RESP 16–18; TEMP 97.7–98.6; O2SAT 95–98
[2025-03-07 06:46] LABS: Hematocrit 34.1 % (36.0-46.0); Hemoglobin 11.7 g/dL (12.2-16.2); Mean Corpuscular Hemoglobin 29.3 pg (28.0-32.0); Mean Corpuscular Hgb Conc. 34.3 g/dL (32.0-36.0); Red Blood Cells 3.99 10^6/uL (4.0-5.20)
[2025-03-07 06:49] LABS: Mean Corpuscular Volume 85.6 fL (80.0-100.0); Red Cell Distribution Width 12.7 % (11.8-14.3); White Blood Cell 3.2 10^3/uL (4.4-10.8)
[2025-03-07 06:53] LABS: Alanine Aminotransferase 20 U/L (7-40); Alkaline Phosphatase 80 U/L (46-116); Anion Gap 8 (5-15); Aspartate Aminotransferase 14 U/L (13-40); Carbon Dioxide 22 mmol/L (20-31); Glucose 92 mg/dL (74-106); Sodium 141 mmol/L (136-145)
[2025-03-07 07:14] LABS: Platelet Count (auto) 65 10^3/uL (140-450)
[2025-03-07 07:15] LABS: Basophils % (manual) 0 (0.0-2.0); Blast Cells 0; Myelocytes % 0; Promyelocytes % 0; Reactive Lymphocytes 0
[2025-03-07 07:37] LABS: Calcium 8.6 mg/dL (8.7-10.4); Chloride 111 mmol/L (98-107); Potassium 3.1 mmol/L (3.5-5.1)
[2025-03-07 07:42] LABS: BUN/Creatinine Ratio 13.2 (10.0-20.0); Blood Urea Nitrogen 12 mg/dL (9-23)
[2025-03-07 07:43] LABS: Bilirubin, Total 0.1 mg/dL (0.2-1.0); Total Protein 5.1 g/dL (5.7-8.2)
[2025-03-07] MEDS: FAMOTIDINE (10MG/ML) 2ML VL IV SCH (09:03)
--- NOTE | 2025-03-07 10:08 | DVHPN2 ---
Subjective Better Better appetite Changes from previous H/P or p: Changes Objective Vitals Vital Signs Date Time Temp Pulse Resp B/P (MAP) Pulse Ox O2 Delivery O2 Flow Rate FiO2 03/07/25 09:32 94 17 140/83 03/07/25 09:11 97.8 97 97.8 03/06/25 20:00 Room Air* 0 21 Intake/Output Intake and Output 03/07/25 06:59 Intake Total 2360 ml Balance 2360 ml Intake Oral 1010 ml IV Total 1350 ml # Voids 4 # Bowel Movements 1 General Appearance: Alert, Oriented X3, Cooperative, No acute distress Lungs: Clear to auscultation, Normal air movement Cardiovascular: Regular rate, Normal S1, Normal S2 Abdomen: Normal bowel sounds, Soft, Other (Generalized diffuse mild tenderness) Extremities: No edema Medications Current Medications Medications Dose Ordered Sig/Shelley Route Start Time Stop Time Status Last Admin Dose Admin Ondansetron HCl 4 mg Q4HP PRN IV 03/04/25 23:00 03/07/25 09:02 4 MG Morphine Sulfate 2 mg Q4HPRN PRN IV 03/04/25 23:00 03/07/25 09:32 2 MG Prochlorperazine Edisylate 5 mg Q4HPRN PRN IV 03/04/25 23:15 03/05/25 21:55 5 MG Sodium Chloride 1,000 ml @ 100 mls/hr Q10H IV 03/04/25 23:15 03/04/25 23:58 100 MLS/HR Ceftriaxone Sodium 50 ml @ 100 mls/hr DAILY@09 IV 03/06/25 09:00 03/07/25 09:02 100 MLS/HR Metronidazole 100 ml @ 100 mls/hr Q8HR IV 03/05/25 06:00 03/07/25 05:07 100 MLS/HR Patient Own Medication 16,800 unt TID PO 03/05/25 06:00 Hydralazine HCl 10 mg Q6HP PRN IV 03/05/25 13:00 03/05/25 13:23 10 MG Enteral Nutritional Formula 240 ml TIDWM PO 03/06/25 12:00 Famotidine 20 mg DAILY IV 03/07/25 10:00 03/07/25 09:03 20 MG Laboratory Results Laboratory Tests 03/07/25 05:01 Chemistry Test 03/07/25 05:01 Albumin 3.0 g/dL (3.2-4.8) L Calcium Level 8.6 mg/dL (8.7-10.4) L Magnesium Level 2.0 mg/dL (1.6-2.6) Total Protein 5.1 g/dL (5.7-8.2) L LFT Test 03/07/25 05:01 Alanine Aminotransferase (ALT) 20 U/L (7-40) Alkaline Phosphatase 80 U/L (46-116) Aspartate Amino Transferase (AST) 14 U/L (13-40) Total Bilirubin 0.1 mg/dL (0.2-1.0) L Urinalysis Test 03/04/25 23:53 Urine Color Yellow (Yellow) Urine Clarity Clear (Clear) Urine pH 5.5 (5.0-9.0) Urine Specific [place] 1.024 (1.001-1.035) Urine Protein Trace (Negative) H Urine Ketones Negative (Negative) Urine Blood 2+ /uL (Negative) H Urine Nitrite Negative (Negative) Urine Bilirubin Negative (Negative) Urine Urobilinogen Normal mg/dL (Negative) Urine Leukocyte Esterase Negative /uL (Negative) Urine RBC 3 /hpf (0 - 4) Urine Microscopic WBC 2 /HPF (0-5) Urine Squamous Epithelial Cells Few /hpf (<5) Urine Bacteria Few /hpf (None Seen) H Urine Glucose Normal mg/dL (Normal) Microbiology Microbiology Date/Time Source Procedure Growth Status 03/05/25 10:00 Voided Urine Urine Culture - Preliminary Resulted 03/05/25 03:52 Stool Clostridium difficile Toxin Assay - Final Complete Assessment/Plan Assessment/Plan Nausea and vomiting diarrhea secondary to chemotherapy History of pancreatic cancer status post Whipple and chemotherapy Acute kidney injury due to vasomotor nephropathy and dehydration Dehydration, improving Abdominal pain Acute colitis, Rule out C diff colitis Chronic kidney disease Type 2 diabetes Neutropenia Thrombocytopenia Plan Continue IV fluids Start clear liquid diet Check the stools for C diff IV antibiotics with Rocephin and Flagyl Pain management with morphine p.r.n. Zofran for nausea or vomiting Protonix for GI prophylaxis Lovenox for DVT prophylaxis Thrombocytopenia: Monitor closely Neutropenia: Neutropenic precautions Monitor closely The rest of the management will depend on the hospital course 03/06/2025: Acute kidney injury and dehydration: Continue IV fluids Dehydration: Bolus 1 L normal saline Add Glucerna Hypomagnesemia: Replace magnesium IV Acute colitis: IV antibiotics Rocephin and Flagyl Neutropenia: Neutropenic precautions Thrombocytopenia monitoring, hold Lovenox Tachycardia: Continue IV fluids, echocardiogram showed normal ejection fraction Protein malnutrition: Glucerna 03/07/25: Advance diet Replace K+ Glucerna IVF OOB PT Ambulate Plan discussed with: Patient My Orders Orders - RAMA MAGALLON MD Procedure Category Date Status Time Nutritional PHA 03/06/25 In Process Supplements (Glucerna 12:00 Complete Blood Count LAB 03/07/25 In Process 04:00 Famotidine Injection PHA 03/07/25 In Process (Pepcid Injection) 10:00 Manual Differential LAB 03/07/25 In Process 05:01 Date of Service: Mar 07, 2025 Billing Provider: RAMA MAGALLON MD Common Visit Codes: NOT BILLABLE RAMA MAGALLON MD Mar 07, 2025 10:08
[2025-03-07 10:20] LABS: Band Neutrophils % (manual) 23; Eosinophils % (manual) 10 (0-7); Lymphocytes % (manual) 36 (10.0-50.0); Metamyelocytes % 1; Monocytes % (manual) 10 (0-12); Platelet Estimate Decreased
[2025-03-07] MEDS: POTASSIUM CHL 20 Meq TABLET PO ONE (14:29)
[2025-03-08] VITALS (8 sets, daily range): BP systolic 127–148; BP diastolic 52–89; PULSE 93–108; RESP 16–18; TEMP 97.6–98.9; O2SAT 96–100
[2025-03-08 07:12] LABS: Hematocrit 37.5 % (36.0-46.0); Hemoglobin 12.8 g/dL (12.2-16.2); Mean Corpuscular Hemoglobin 29.5 pg (28.0-32.0); Mean Corpuscular Hgb Conc. 34.1 g/dL (32.0-36.0); Mean Corpuscular Volume 86.5 fL (80.0-100.0); Platelet Count (auto) 103 10^3/uL (140-450); Red Blood Cells 4.34 10^6/uL (4.0-5.20); White Blood Cell 5.9 10^3/uL (4.4-10.8)
[2025-03-08 07:26] LABS: Alanine Aminotransferase 18 U/L (7-40); Alkaline Phosphatase 86 U/L (46-116); Anion Gap 11 (5-15); Aspartate Aminotransferase 15 U/L (13-40); Sodium 141 mmol/L (136-145)
[2025-03-08 07:33] LABS: Basophils % (manual) 0 (0.0-2.0); Blast Cells 0; Metamyelocytes % 0; Promyelocytes % 0; Reactive Lymphocytes 0
[2025-03-08 07:37] LABS: Albumin 3.1 g/dL (3.2-4.8); Bilirubin, Total 0.3 mg/dL (0.2-1.0); Blood Urea Nitrogen 8 mg/dL (9-23); Carbon Dioxide 20 mmol/L (20-31); Chloride 110 mmol/L (98-107); Glucose 108 mg/dL (74-106); Total Protein 5.5 g/dL (5.7-8.2)
[2025-03-08 07:39] LABS: Potassium 2.5 mmol/L (3.5-5.1)
--- NOTE | 2025-03-08 07:56 | ECG ---
[facility] Test Date: 2025-03-05 Test Time: 13:46:18 Pat Name: JARAD BEJARANO Department: Respiratoy Room: 0203T A Gender: F [employer]: ANTHONY : 1950 Requested By: RAMA MAGALLON Order Number: [id number] Reading MD: Bernabe Friedman Measurements Intervals [place] Rate: 139 P: -88 MN: 125 QRS: 39 QRSD: 80 T: 15 QT: 299 QTc: 455 Interpretive Statements Ectopic atrial tachycardia, unifocal Low voltage, precordial leads Electronically Signed On 03-08-2025 20:23:11 PDT by Bernabe Friedman Please click the below link to view image of tracing.
[2025-03-08] MEDS: POTASSIUM CHL 20 Meq TABLET PO ONE (08:00)
--- NOTE | 2025-03-08 08:55 | DVHPN2 ---
Subjective She was vomiting yesterday last night and this morning She says she is vomiting after she took her potassium Changes from previous H/P or p: Changes Objective Vitals Vital Signs Date Time Temp Pulse Resp B/P (MAP) Pulse Ox O2 Delivery O2 Flow Rate FiO2 03/08/25 06:32 90 18 134/80 03/08/25 05:00 97.9 96 97.9 03/07/25 20:00 Room Air* 0 21 Intake/Output Intake and Output 03/08/25 07:00 Intake Total 425 ml Balance 425 ml Intake Oral 175 ml IV Total 250 ml # Voids 3 General Appearance: Alert, Oriented X3, Cooperative, No acute distress Lungs: Clear to auscultation, Normal air movement Cardiovascular: Regular rate, Normal S1, Normal S2 Abdomen: Normal bowel sounds, Soft, Other (Generalized diffuse mild tenderness) Extremities: No edema Medications Current Medications Medications Dose Ordered Sig/Shelley Route Start Time Stop Time Status Last Admin Dose Admin Ondansetron HCl 4 mg Q4HP PRN IV 03/04/25 23:00 03/08/25 06:27 4 MG Morphine Sulfate 2 mg Q4HPRN PRN IV 03/04/25 23:00 03/08/25 06:32 2 MG Prochlorperazine Edisylate 5 mg Q4HPRN PRN IV 03/04/25 23:15 03/05/25 21:55 5 MG Sodium Chloride 1,000 ml @ 100 mls/hr Q10H IV 03/04/25 23:15 03/07/25 21:32 100 MLS/HR Ceftriaxone Sodium 50 ml @ 100 mls/hr DAILY@09 IV 03/06/25 09:00 03/07/25 09:02 100 MLS/HR Metronidazole 100 ml @ 100 mls/hr Q8HR IV 03/05/25 06:00 03/08/25 06:16 100 MLS/HR Patient Own Medication 16,800 unt TID PO 03/05/25 06:00 Hydralazine HCl 10 mg Q6HP PRN IV 03/05/25 13:00 03/05/25 13:23 10 MG Enteral Nutritional Formula 240 ml TIDWM PO 03/06/25 12:00 03/07/25 18:00 240 ML Famotidine 20 mg DAILY IV 03/07/25 10:00 03/07/25 09:03 20 MG Laboratory Results Laboratory Tests 03/08/25 04:51 Chemistry Test 03/08/25 04:51 Albumin 3.1 g/dL (3.2-4.8) L Calcium Level 8.0 mg/dL (8.7-10.4) L Total Protein 5.5 g/dL (5.7-8.2) L LFT Test 03/08/25 04:51 Alanine Aminotransferase (ALT) 18 U/L (7-40) Alkaline Phosphatase 86 U/L (46-116) Aspartate Amino Transferase (AST) 15 U/L (13-40) Total Bilirubin 0.3 mg/dL (0.2-1.0) Urinalysis Test 03/04/25 23:53 Urine Color Yellow (Yellow) Urine Clarity Clear (Clear) Urine pH 5.5 (5.0-9.0) Urine Specific [place] 1.024 (1.001-1.035) Urine Protein Trace (Negative) H Urine Ketones Negative (Negative) Urine Blood 2+ /uL (Negative) H Urine Nitrite Negative (Negative) Urine Bilirubin Negative (Negative) Urine Urobilinogen Normal mg/dL (Negative) Urine Leukocyte Esterase Negative /uL (Negative) Urine RBC 3 /hpf (0 - 4) Urine Microscopic WBC 2 /HPF (0-5) Urine Squamous Epithelial Cells Few /hpf (<5) Urine Bacteria Few /hpf (None Seen) H Urine Glucose Normal mg/dL (Normal) Microbiology Microbiology Date/Time Source Procedure Growth Status 03/05/25 10:00 Voided Urine Urine Culture - Final Complete 03/05/25 03:52 Stool Clostridium difficile Toxin Assay - Final Complete Assessment/Plan Assessment/Plan Nausea and vomiting diarrhea secondary to chemotherapy History of pancreatic cancer status post Whipple and chemotherapy Acute kidney injury due to vasomotor nephropathy and dehydration Dehydration, improving Abdominal pain Acute colitis, Rule out C diff colitis Chronic kidney disease Type 2 diabetes Neutropenia Thrombocytopenia Plan Continue IV fluids Start clear liquid diet Check the stools for C diff IV antibiotics with Rocephin and Flagyl Pain management with morphine p.r.n. Zofran for nausea or vomiting Protonix for GI prophylaxis Lovenox for DVT prophylaxis Thrombocytopenia: Monitor closely Neutropenia: Neutropenic precautions Monitor closely The rest of the management will depend on the hospital course 03/06/2025: Acute kidney injury and dehydration: Continue IV fluids Dehydration: Bolus 1 L normal saline Add Glucerna Hypomagnesemia: Replace magnesium IV Acute colitis: IV antibiotics Rocephin and Flagyl Neutropenia: Neutropenic precautions Thrombocytopenia monitoring, hold Lovenox Tachycardia: Continue IV fluids, echocardiogram showed normal ejection fraction Protein malnutrition: Glucerna 03/07/25: Advance diet Replace K+ Glucerna IVF OOB PT Ambulate 03/08/2025: Change the potassium from p.o. to IV continuous infusion with the IV fluids Continue soft diet as tolerated and liquids as tolerated Continue Glucerna as tolerated Monitor the patient closely Discharge planning in the next 1-2 days once her vomiting stops Plan discussed with: Patient My Orders Orders - RAMA MAGALLON MD Procedure Category Date Status Time Complete Blood Count LAB 03/08/25 In Process 04:00 Mechanical Soft Diet DIET 03/07/25 Transmitted Lunch Manual Differential LAB 03/08/25 In Process 04:51 Date of Service: Mar 08, 2025 Billing Provider: RAMA MAGALLON MD Common Visit Codes: NOT BILLABLE RAMA MAGALLON MD Mar 08, 2025 08:55
[2025-03-08 09:17] LABS: Band Neutrophils % (manual) 8; Eosinophils % (manual) 4 (0-7); Lymphocytes % (manual) 32 (10.0-50.0); Monocytes % (manual) 11 (0-12); Myelocytes % 1; Platelet Estimate Decreased
[2025-03-08] MEDS: SOD CHL 0.45% WITH 20MEQ KCL 1,000 ML IV SCH (10:53)
[2025-03-09] VITALS (8 sets, daily range): BP systolic 123–150; BP diastolic 75–95; PULSE 92–113; RESP 16–20; TEMP 97.4–99.3; O2SAT 93–98
[2025-03-09 08:30] LABS: Basophils # (auto) 0 10 ^3/uL (0-0.2); Basophils % (auto) 0.1 % (0.0-2.0); Eosinophils # (auto) 0.4 10 ^3/uL (0-0.8); Eosinophils % (auto) 4.4 % (0.0-7.0); Hematocrit 41.7 % (36.0-46.0); Hemoglobin 13.7 g/dL (12.2-16.2); Lymphocytes # (auto) 2.6 10 ^3/uL (0.4-5.4); Lymphocytes % (auto) 27.8 % (10.0-50.0); Mean Corpuscular Hemoglobin 28.5 pg (28.0-32.0); Mean Corpuscular Hgb Conc. 32.9 g/dL (32.0-36.0); Mean Corpuscular Volume 86.6 fL (80.0-100.0); Monocytes # (auto) 0.6 10 ^3/uL (0-1.3); Monocytes % (auto) 5.9 % (0.0-12.0); Neutrophils # (auto) 5.8 10 ^3/uL (1.6-8.6); Neutrophils % (auto) 61.8 % (37.0-80.0); Nucleated Red Blood Cells % 0.2 %; Platelet Count (auto) 119 10^3/uL (140-450); Red Blood Cells 4.82 10^6/uL (4.0-5.20); White Blood Cell 9.5 10^3/uL (4.4-10.8)
[2025-03-09 08:36] LABS: Alanine Aminotransferase 31 U/L (7-40); Albumin 3.3 g/dL (3.2-4.8); Alkaline Phosphatase 98 U/L (46-116); Anion Gap 9 (5-15); Aspartate Aminotransferase 35 U/L (13-40); Carbon Dioxide 21 mmol/L (20-31); Sodium 139 mmol/L (136-145)
[2025-03-09 08:37] LABS: Bilirubin, Total 0.4 mg/dL (0.2-1.0)
[2025-03-09 08:40] LABS: BUN/Creatinine Ratio 5.4 (10.0-20.0); Blood Urea Nitrogen < 5 mg/dL (9-23); Calcium 8.3 mg/dL (8.7-10.4); Chloride 109 mmol/L (98-107); Glucose 115 mg/dL (74-106); Magnesium 1.5 mg/dL (1.6-2.6); Total Protein 5.6 g/dL (5.7-8.2)
--- NOTE | 2025-03-09 13:38 | DVHPN2 ---
Subjective Patient continues to report having nausea and vomiting as well as diarrhea Reviewed: Care Plan, H&P, Labs, Medications Changes from previous H/P or p: No Changes Objective Vitals Vital Signs Date Time Temp Pulse Resp B/P (MAP) Pulse Ox O2 Delivery O2 Flow Rate FiO2 03/09/25 12:34 97.8 104 16 128/85 (99) 96 97.8 03/09/25 08:00 Room Air* 0 21 Intake/Output Intake and Output 03/09/25 07:00 Intake Total 1450 ml Balance 1450 ml Intake Oral 200 ml IV Total 1250 ml # Voids 3 # Bowel Movements 2 General Appearance: Alert, Oriented X3, Cooperative, No acute distress HEENT: Atraumatic, PERRLA Lungs: Clear to auscultation, Normal air movement Cardiovascular: Regular rate, Normal S1, Normal S2 Abdomen: Normal bowel sounds, Soft, Other (Ventral hernia) Extremities: No edema Skin: Dry, Intact Psych/Mental Status: Mental status NL, Mood NL Medications Current Medications Medications Dose Ordered Sig/Shelley Route Start Time Stop Time Status Last Admin Dose Admin Ondansetron HCl 4 mg Q4HP PRN IV 03/04/25 23:00 03/08/25 06:27 4 MG Morphine Sulfate 2 mg Q4HPRN PRN IV 03/04/25 23:00 03/09/25 09:20 2 MG Prochlorperazine Edisylate 5 mg Q4HPRN PRN IV 03/04/25 23:15 03/09/25 09:20 5 MG Ceftriaxone Sodium 50 ml @ 100 mls/hr DAILY@09 IV 03/06/25 09:00 03/09/25 09:20 100 MLS/HR Metronidazole 100 ml @ 100 mls/hr Q8HR IV 03/05/25 06:00 03/09/25 05:23 100 MLS/HR Patient Own Medication 16,800 unt TID PO 03/05/25 06:00 Hydralazine HCl 10 mg Q6HP PRN IV 03/05/25 13:00 03/05/25 13:23 10 MG Enteral Nutritional Formula 240 ml TIDWM PO 03/06/25 12:00 03/08/25 17:46 240 ML Famotidine 20 mg DAILY IV 03/07/25 10:00 03/09/25 10:29 20 MG Potassium Chloride 40 meq/ Sodium Chloride 1,020 ml @ 100 mls/hr [id number] IV 03/09/25 13:30 UNV Magnesium Sulfate/ Dextrose 100 ml @ 100 mls/hr Q1HR IV 03/09/25 14:00 03/09/25 15:59 UNV Laboratory Results Laboratory Tests 03/09/25 07:50 Chemistry Test 03/09/25 07:50 Albumin 3.3 g/dL (3.2-4.8) Calcium Level 8.3 mg/dL (8.7-10.4) L Magnesium Level 1.5 mg/dL (1.6-2.6) L Total Protein 5.6 g/dL (5.7-8.2) L LFT Test 03/09/25 07:50 Alanine Aminotransferase (ALT) 31 U/L (7-40) Alkaline Phosphatase 98 U/L (46-116) Aspartate Amino Transferase (AST) 35 U/L (13-40) Total Bilirubin 0.4 mg/dL (0.2-1.0) Urinalysis Test 03/04/25 23:53 Urine Color Yellow (Yellow) Urine Clarity Clear (Clear) Urine pH 5.5 (5.0-9.0) Urine Specific [place] 1.024 (1.001-1.035) Urine Protein Trace (Negative) H Urine Ketones Negative (Negative) Urine Blood 2+ /uL (Negative) H Urine Nitrite Negative (Negative) Urine Bilirubin Negative (Negative) Urine Urobilinogen Normal mg/dL (Negative) Urine Leukocyte Esterase Negative /uL (Negative) Urine RBC 3 /hpf (0 - 4) Urine Microscopic WBC 2 /HPF (0-5) Urine Squamous Epithelial Cells Few /hpf (<5) Urine Bacteria Few /hpf (None Seen) H Urine Glucose Normal mg/dL (Normal) Microbiology Microbiology Date/Time Source Procedure Growth Status 03/05/25 10:00 Voided Urine Urine Culture - Final Complete 03/05/25 03:52 Stool Clostridium difficile Toxin Assay - Final Complete Labs and/or images reviewed: Labs reviewed by me, Image(s) reviewed by me Assessment/Plan Assessment/Plan Impression: -chemotherapy-induced colitis -pancreatic cancer, status post Whipple procedure, receiving 2nd course of IV chemotherapy -hypokalemia -Hypomagnesemia -neutropenia -C diff colitis ruled out -acute kidney injury, vasomotor nephropathy -thrombocytopenia Plan: -neutropenia improving. Can take off of contact precautions -C diff negative -K and Mag replacement -IV hydration -antiemetics -continue IV Rocephin and Flagyl -repeat labs in a.m. Total time spent with patient discussing and formulating plan of care: 35 minutes. This medical document was created using an electronic medical record system with [employer] dictation system. Although this document has been carefully reviewed, there may still be some phonetic and typographical errors. These areas are purely typographical due to imperfections of the software programs, and do not reflect any compromise in the patient's medical care. Plan discussed with: Patient, Other (RN) My Orders Orders - ESMER ESPOSITO NP Procedure Category Date Status Time Sod Chl 0.45% PHA 03/09/25 Logged (Sodi... W/Potassium 13:30 Magnesium Sulfate PHA 03/09/25 Logged 1gm/100ml 14:00 Basic Metabolic Panel LAB 03/10/25 Verified 04:00 Magnesium LAB 03/10/25 Verified 04:00 Date of Service: Mar 09, 2025 Billing Provider: ESMER ESPOSITO NP Common Visit Codes: [id number] INP/OBS CARE(HIGH) ESMER ESPOSITO NP Mar 09, 2025 13:38
[2025-03-09] MEDS: MAGNESIUM SULFATE 1GM/100ML 100 ML IV SCH ×2 (15:57→18:54)
--- NOTE | 2025-03-09 17:13 | DVHINCON2 ---
ANISHA MENDOZA [facility] 03/09/25 1713: Date Seen: Mar 09, 2025 Referring Physician MD Heidi Reason for Consultation Tachycardia History of Present Illness This is a 75-year-old female patient who presents to the emergency room with chief complaint of nausea, vomiting, diarrhea, and abdominal pain. The patient states that she recently had a round of chemotherapy with last dose on 02/28/2025. Since then, she explains that she has been experiencing all of the aforementioned symptoms. She decided to come to the emergency room for further evaluation. Cardiology has now been consulted at this time for sinus tachycardia. Initial twelve lead electrocardiogram reveals atrial tachycardia without any significant ST segment changes. No troponin levels drawn during this admission. Patient denies any kind of cardiac symptoms. Significant past medical history includes type 2 diabetes mellitus, and pancreatic cancer cu rrently undergoing chemotherapy. Past Medical History Past medical history reviewed. No other significant than mentioned above. Past Surgical History Whipple surgery on May 2024 Family History: Diabetes mellitus G8 MOTHER FH: lung cancer G8 FATHER, Family History Family history reviewed. Social History Denies the use of tobacco, alcohol or illicit drugs. Allergies: Coded Allergies: NO KNOWN ALLERGIES (Unverified , 06/28/24) Home Meds Active Scripts Potassium Chloride (Klor-Con 10) 10 Meq Tab, 10 MEQ PO DAILY, #10 TAB Prov:RAMA MAGALLON MD 10/24/24 Magnesium Oxide (MAGNESIUM OXIDE) 400 Mg Tab, 1 TAB PO DAILY, #10 TAB 0 Refills Prov:RAMA MAGALLON MD 10/24/24 Hydrocodone-Acetaminophen (Hydrocodone Bitartrate/AC 5-325 mg) 1 Tab Tab, 1 TAB PO Q6HP PRN, #30 TAB Prov:RAMA MAGALLON MD 10/24/24 Pancreatic Enzymes (Pancreaze) 16,800 [place]t Cap, [address] UNT PO TID for 30 Days, #90 CAP Prov:RAMA MAGALLON MD 07/03/24 Reported Medications Prochlorperazine Maleate (Compazine) 10 Mg Tb, 1 TAB PO Q8HPRN PRN for nausea 03/05/25 Ondansetron Odt 4MG Tab (ZOFRAN PO) 4 Mg Tb, 8 MG PO TID, TAB ODT TAB-DISSOLVE IN MOUTH, THEN SWALLOW 03/05/25 Ondansetron HCl (Ondansetron Hydrochloride) 4 Mg Tab, 1 TAB PO Q8HPRN PRN for NAUSEA / VOMITING 06/29/24 Pantoprazole Sodium Sesquihydr (Pantoprazole Sodium) 40 Mg Tab, 1 TAB PO DAILY 06/29/24 Home Meds Home medications reviewed. Current Medications Current Medications Medications (Trade) Dose Ordered Sig/Shelley Route PRN Reason Start Time Stop Time Status Last Admin Potassium Chloride 40 meq/ Sodium Chloride 1,020 ml @ 100 mls/hr [id number] IV 03/09/25 13:30 Magnesium Sulfate/ Dextrose 100 ml @ 100 mls/hr Q1HR IV 03/09/25 14:00 03/09/25 15:59 DC 03/09/25 15:57 Review of Systems Constitutional: Generalized weakness Ears, Nose, & Throat: No symptom reported Eyes: No symptom reported Neurological: No symptoms reported Pulmonary/Respiratory: No symptoms reported Cardiovascular: No symptom reported Gastrointestinal: Nausea, vomiting, diarrhea Genitourinary: No symptom reported Musculoskeletal: No symptom reported Skin: No symptom reported Psychiatric: No symptom reported Endocrine: No symptom reported Hematologic/Lymphatic: No symptom reported Vital Signs Vital Signs Date Time Temp Pulse Resp B/P (MAP) Pulse Ox O2 Delivery O2 Flow Rate FiO2 03/09/25 16:37 97.9 106 18 123/88 (100) 96 97.9 03/09/25 08:00 Room Air* 0 21 Physical Exam General Appearance: Cooperative. Thin Pulmonary/Respiratory: Clear, bilateral breaths sounds. Cardiovascular/Chest: Regular rate and rhythm. Peripheral Pulses: 2+ Radial (R). 2+ Radial (L). 2+ Pedal (R). 2+ Pedal (L) Abdominal Exam: Normal bowel sounds. Ankle Exam: Negative ankle edema Lower extremities: Negative lower extremity edema Neuro/Mental Status: A/OX4, coherent. Thoughts/Psych: Normal thought pattern. Appropriate mood and affect. Good judgment and insight. Appearance: No acute distress. Skin Exam: Normal inspection. Normal color. Warm and dry. Labs/Diagnostic Data Labs Test 03/09/25 07:50 03/08/25 04:51 03/05/25 03:52 03/05/25 03:35 Range/Units White Blood Count 9.5 # 4.4-10.8 10^3/uL Red Blood Count 4.82 4.0-5.20 10^6/uL Hemoglobin 13.7 12.2-16.2 g/dL Hematocrit 41.7 # 36.0-46.0 % Mean Corpuscular Volume 86.6 80.0-100.0 fL Mean Corpuscular Hemoglobin 28.5 28.0-32.0 pg Mean Corpuscular Hemoglobin Concent 32.9 32.0-36.0 g/dL Red Cell Distribution Width 13.0 11.8-14.3 % Platelet Count 119 L 140-450 10^3/uL Mean Platelet Volume 8.4 6.9-10.8 fL Neutrophils (%) (Auto) 61.8 37.0-80.0 % Lymphocytes (%) (Auto) 27.8 10.0-50.0 % Monocytes (%) (Auto) 5.9 0.0-12.0 % Eosinophils (%) (Auto) 4.4 0.0-7.0 % Basophils (%) (Auto) 0.1 0.0-2.0 % Neutrophils # (Auto) 5.8 1.6-8.6 10 ^3/uL Lymphocytes # (Auto) 2.6 0.4-5.4 10 ^3/uL Monocytes # (Auto) 0.6 0-1.3 10 ^3/uL Eosinophils # (Auto) 0.4 0-0.8 10 ^3/uL Basophils # (Auto) 0 0-0.2 10 ^3/uL Nucleated Red Blood Cells 0.2 % Sodium Level 139 136-145 mmol/L Potassium Level 3.0 L 3.5-5.1 mmol/L Chloride Level 109 H 98-107 mmol/L Carbon Dioxide Level 21 20-31 mmol/L Anion Gap 9 5-15 Blood Urea Nitrogen < 5 L 9-23 mg/dL Creatinine 0.92 0.550-1.02 mg/dL Glomerular Filtration Rate Calc 64 >90 mL/min BUN/Creatinine Ratio 5.4 L 10.0-20.0 Serum Glucose 115 H 74-106 mg/dL Calcium Level 8.3 L 8.7-10.4 mg/dL Magnesium Level 1.5 L 1.6-2.6 mg/dL Total Bilirubin 0.4 0.2-1.0 mg/dL Aspartate Amino Transferase (AST) 35 13-40 U/L Alanine Aminotransferase (ALT) 31 7-40 U/L Alkaline Phosphatase 98 46-116 U/L Total Protein 5.6 L 5.7-8.2 g/dL Albumin 3.3 3.2-4.8 g/dL Differential Total Cells Counted 100.0 100 Neutrophils % (Manual) 44 37.0-80.0 Band Neutrophils % (Manual) 8 Lymphocytes % (Manual) 32 10.0-50.0 Monocytes % (Manual) 11 0-12 Eosinophils % (Manual) 4 0-7 Basophils % (Manual) 0 0.0-2.0 Metamyelocytes % (manual) 0 Myelocytes % (Manual) 1 Promyelocytes % (Manual) 0 Blast Cells % (Manual) 0 Reactive Lymphocytes 0 Platelet Estimate Decreased Stool for White Cells None seen Large Platelets Few Hemoglobin A1c 6.2 H <5.7 % A1C Test 03/04/25 23:53 03/04/25 13:31 03/04/25 13:12 Range/Units Urine Color Yellow Yellow Urine Clarity Clear Clear Urine pH 5.5 5.0-9.0 Urine Specific [place] 1.024 1.001-1.035 Urine Protein Trace H Negative Urine Ketones Negative Negative Urine Blood 2+ H Negative /uL Urine Nitrite Negative Negative Urine Bilirubin Negative Negative Urine Urobilinogen Normal Negative mg/dL Urine Leukocyte Esterase Negative Negative /uL Urine RBC 3 0 - 4 /hpf Urine Microscopic WBC 2 0-5 /HPF Urine Squamous Epithelial Cells Few <5 /hpf Urine Bacteria Few H None Seen /hpf Urine Glucose Normal Normal mg/dL Urine Opiates Screen Neg NEGATIVE Urine Fentanyl Screen Neg NEGATIVE Urine Barbiturates Screen Neg NEGATIVE Urine Phencyclidine Screen Neg NEGATIVE Urine Amphetamines Screen Neg NEGATIVE Urine Benzodiazepines Screen Neg NEGATIVE Urine Cocaine Screen Neg NEGATIVE Urine Cannabinoids Screen Pos NEGATIVE Phosphorus Level 4.0 2.4-5.1 mg/dL Triglycerides Level 85 < 150 mg/dL Cholesterol Level 116 < 200 mg/dL LDL Cholesterol 57 < 100 mg/dL HDL Cholesterol 44 40-59 mg/dL Lipase 24 12-53 U/L Vitamin B12 Level 904 211-911 pg/mL Vitamin D 25-Hydroxy 41.2 30.0-100 ng/mL Thyroid Stimulating Hormone (TSH) 0.98 0.55-4.78 uIU/mL POC Glucose 161 H 70-106 mg/dl Microbiology Date/Time Source Procedure Growth Status 03/05/25 10:00 Voided Urine Urine Culture - Final Complete 03/05/25 03:52 Stool Clostridium difficile Toxin Assay - Final Complete Assessment Dehydration Sinus tachycardia secondary to above Pancreatic cancer with recent chemotherapy Hypokalemia Thrombocytopenia Plan/Recommendation We will continue following plan/recommendations (Dr. Quinteros): Case discussed with . Transthoracic echocardiogram reveals EF of 75% with hyperdynamic biventricular function. Cardiology was consulted for sinus tachycardia. Given patient's clinical presentation, symptoms likely secondary to dehydration. Patient reports recent round of chemotherapy on 02/28/25. She reports that shortly thereafter she began feeling generalized weakness, and has been experiencing nausea, vomiting, and diarrhea since then. There is no further inpatient cardiac workup indicated at this time. Continue with IV fluid hydration per primary care team. Thank you for allowing us to care for this patient. Please call with any questions or concerns. Critical care time spent: 43 minutes This medical document was created using an electronic medical record system with voice recognition software and computerized dictation system. Although this document has been carefully reviewed, there might still be some phonetic and typographical errors. Occasional wrong-word or ``sound-alike substitutions may have occurred due to the inherent limitations of voice recognition software. These areas are purely typographical due to imperfections of the software programs and do not reflect any compromise in the patient's medical care. Please read the chart carefully and recognize, using context, where these substitutions have occurred. Plan discussed with: Patient NYHA Physical activity limitations: NA Date of Service: Mar 09, 2025 Billing Provider: ANISHA MENDOZA LEAD RECOVERER Cardiology Common Codes: [id number] INP/OBS CARE (High) Cardiology Consultation Codes: [id number] CONSULT <45MIN FARA QUINTEROS MD 03/10/25 1249: Family History: Diabetes mellitus G8 MOTHER FH: lung cancer G8 FATHER, Allergies: Coded Allergies: NO KNOWN ALLERGIES (Unverified , 06/28/24) Home Meds Active Scripts Potassium Chloride (Klor-Con 10) 10 Meq Tab, 10 MEQ PO DAILY, #10 TAB Prov:RAMA MAGALLON MD 10/24/24 Magnesium Oxide (MAGNESIUM OXIDE) 400 Mg Tab, 1 TAB PO DAILY, #10 TAB 0 Refills Prov:RAMA MAGALLON MD 10/24/24 Hydrocodone-Acetaminophen (Hydrocodone Bitartrate/AC 5-325 mg) 1 Tab Tab, 1 TAB PO Q6HP PRN, #30 TAB Prov:RAMA MAGALLON MD 10/24/24 Pancreatic Enzymes (Pancreaze) 16,800 [place]t Cap, [address] UNT PO TID for 30 Days, #90 CAP Prov:RAMA MAGALLON MD 07/03/24 Reported Medications Prochlorperazine Maleate (Compazine) 10 Mg Tb, 1 TAB PO Q8HPRN PRN for nausea 03/05/25 Ondansetron Odt 4MG Tab (ZOFRAN PO) 4 Mg Tb, 8 MG PO TID, TAB ODT TAB-DISSOLVE IN MOUTH, THEN SWALLOW 03/05/25 Ondansetron HCl (Ondansetron Hydrochloride) 4 Mg Tab, 1 TAB PO Q8HPRN PRN for NAUSEA / VOMITING 06/29/24 Pantoprazole Sodium Sesquihydr (Pantoprazole Sodium) 40 Mg Tab, 1 TAB PO DAILY 06/29/24 Plan/Recommendation bacteremia, no endocarditis acs ruled out for chest pain ANISHA MENDOZA Mar 09, 2025 17:13 FARA QUINTEROS MD Mar 10, 2025 12:49
[2025-03-09] MEDS: POTASSIUM CHLORIDE 40 MEQ in SOD CHL 0.45% 1,000 ML IV SCH (19:53)
[2025-03-10] VITALS (8 sets, daily range): BP systolic 119–148; BP diastolic 74–100; PULSE 106–136; RESP 18–20; TEMP 97.5–98.4; O2SAT 96–98
[2025-03-10 06:15] LABS: Anion Gap 9 (5-15); Carbon Dioxide 21 mmol/L (20-31); Sodium 141 mmol/L (136-145)
[2025-03-10 06:21] LABS: BUN/Creatinine Ratio 6.2 (10.0-20.0); Magnesium 1.9 mg/dL (1.6-2.6)
[2025-03-10 07:01] LABS: Blood Urea Nitrogen 6 mg/dL (9-23); Chloride 111 mmol/L (98-107); Glucose 140 mg/dL (74-106); Potassium 2.4 mmol/L (3.5-5.1)
[2025-03-10] MEDS: POTASSIUM CHL 20 Meq TABLET PO ONE (07:15)
[2025-03-10] MEDS ORDERED: POTASSIUM CHLORIDE 60 MEQ, LIDOCAINE 1% (LOCAL ANESTH.) 6 ML in SODIUM CHL 0.9% 500 ML IV ONE (11:00)
[2025-03-10] MEDS: CHOLESTYRAMINE 4 GM POWDER PO ONE (13:12)
[2025-03-10] MEDS: POTASSIUM CHLORIDE 40 MEQ, LIDOCAINE 1% (LOCAL ANESTH.) 4 ML in SODIUM CHL 0.9% 250 ML IV ONE (13:58)
[2025-03-10 15:49] LABS: Magnesium 1.7 mg/dL (1.6-2.6)
[2025-03-10 15:53] LABS: Potassium 2.9 mmol/L (3.5-5.1)
[2025-03-11] VITALS (8 sets, daily range): BP systolic 120–138; BP diastolic 80–90; PULSE 100–111; RESP 18–19; TEMP 98–98.3; O2SAT 97–98
[2025-03-11 05:58] LABS: Anion Gap 9 (5-15); Sodium 141 mmol/L (136-145)
[2025-03-11 06:04] LABS: BUN/Creatinine Ratio 6.6 (10.0-20.0)
[2025-03-11 07:03] LABS: Blood Urea Nitrogen 6 mg/dL (9-23); Calcium 8.1 mg/dL (8.7-10.4); Carbon Dioxide 19 mmol/L (20-31); Chloride 113 mmol/L (98-107); Glucose 139 mg/dL (74-106); Magnesium 1.5 mg/dL (1.6-2.6); Potassium 3.5 mmol/L (3.5-5.1)
--- NOTE | 2025-03-11 14:38 | DVHPN2 ---
Subjective Patient reports she was tolerating food better Reviewed: Care Plan, H&P, Labs, Medications Changes from previous H/P or p: Changes Objective Vitals Vital Signs Date Time Temp Pulse Resp B/P (MAP) Pulse Ox O2 Delivery O2 Flow Rate FiO2 03/11/25 08:00 18 Room Air* 0 21 03/11/25 08:00 102 03/11/25 05:59 120/80 03/11/25 05:00 98.1 98 98.1 Intake/Output Intake and Output 03/11/25 07:00 Intake Total 2429 ml Output Total 400 ml Balance 2029 ml Intake Oral 1355 ml IV Total 1074 ml Output Urine Total 400 ml # Voids 3 # Bowel Movements 4 General Appearance: Alert, Oriented X3, Cooperative, No acute distress HEENT: Atraumatic, PERRLA Lungs: Clear to auscultation, Normal air movement Cardiovascular: Regular rate, Normal S1, Normal S2 Abdomen: Normal bowel sounds, Soft, Other (Ventral hernia) Extremities: No edema Skin: Dry, Intact Psych/Mental Status: Mental status NL, Mood NL Medications Current Medications Medications Dose Ordered Sig/Shelley Route Start Time Stop Time Status Last Admin Dose Admin Ondansetron HCl 4 mg Q4HP PRN IV 03/04/25 23:00 03/10/25 08:13 4 MG Morphine Sulfate 2 mg Q4HPRN PRN IV 03/04/25 23:00 03/11/25 05:29 2 MG Prochlorperazine Edisylate 5 mg Q4HPRN PRN IV 03/04/25 23:15 03/09/25 17:56 5 MG Ceftriaxone Sodium 50 ml @ 100 mls/hr DAILY@09 IV 03/06/25 09:00 03/11/25 08:31 100 MLS/HR Metronidazole 100 ml @ 100 mls/hr Q8HR IV 03/05/25 06:00 03/11/25 14:31 100 MLS/HR Patient Own Medication 16,800 unt TID PO 03/05/25 06:00 Hydralazine HCl 10 mg Q6HP PRN IV 03/05/25 13:00 03/05/25 13:23 10 MG Enteral Nutritional Formula 240 ml TIDWM PO 03/06/25 12:00 03/11/25 12:05 240 ML Famotidine 20 mg DAILY IV 03/07/25 10:00 03/11/25 08:30 20 MG Potassium Chloride 40 meq/ Sodium Chloride 1,020 ml @ 100 mls/hr [id number] IV 03/09/25 13:30 03/11/25 05:36 100 MLS/HR Saccharomyces Boulardii 250 mg DAILY PO 03/12/25 10:00 Magnesium Sulfate/ Dextrose 100 ml @ 100 mls/hr Q1HR IV 03/11/25 15:00 03/11/25 16:59 Laboratory Results Laboratory Tests 03/09/25 07:50 03/11/25 05:06 Chemistry Test 03/10/25 14:50 03/11/25 05:06 Magnesium Level 1.7 mg/dL (1.6-2.6) 1.5 mg/dL (1.6-2.6) L Calcium Level 8.1 mg/dL (8.7-10.4) L Urinalysis Test 03/04/25 23:53 Urine Color Yellow (Yellow) Urine Clarity Clear (Clear) Urine pH 5.5 (5.0-9.0) Urine Specific [place] 1.024 (1.001-1.035) Urine Protein Trace (Negative) H Urine Ketones Negative (Negative) Urine Blood 2+ /uL (Negative) H Urine Nitrite Negative (Negative) Urine Bilirubin Negative (Negative) Urine Urobilinogen Normal mg/dL (Negative) Urine Leukocyte Esterase Negative /uL (Negative) Urine RBC 3 /hpf (0 - 4) Urine Microscopic WBC 2 /HPF (0-5) Urine Squamous Epithelial Cells Few /hpf (<5) Urine Bacteria Few /hpf (None Seen) H Urine Glucose Normal mg/dL (Normal) Microbiology Microbiology Date/Time Source Procedure Growth Status 03/05/25 10:00 Voided Urine Urine Culture - Final Complete 03/05/25 03:52 Stool Clostridium difficile Toxin Assay - Final Complete Labs and/or images reviewed: Labs reviewed by me, Image(s) reviewed by me Assessment/Plan Assessment/Plan Impression: -chemotherapy-induced colitis -pancreatic cancer, status post Whipple procedure, receiving 2nd course of IV chemotherapy -hypokalemia -Hypomagnesemia -neutropenia -C diff colitis ruled out -acute kidney injury, vasomotor nephropathy -thrombocytopenia Plan: Events: Patient reports no bowel movements today. Magnesium 1.5. Potassium 3.5. We will replete magnesium. Continue with Questran as needed -continue IV antibiotics. Add Florastor -K and Mag replacement -decrease IV fluid -antiemetics -continue IV Rocephin and Flagyl -repeat labs in a.m. Total time spent with patient discussing and formulating plan of care: 35 minutes. This medical document was created using an electronic medical record system with [employer] dictation system. Although this document has been carefully reviewed, there may still be some phonetic and typographical errors. These areas are purely typographical due to imperfections of the software programs, and do not reflect any compromise in the patient's medical care. Plan discussed with: Patient, Other (RN) My Orders Orders - ESMER ESPOSITO NP Procedure Category Date Status Time Florastor (S. PHA 03/12/25 In Process Boulardii) (Florastor) 10:00 Magnesium Sulfate PHA 03/11/25 In Process 1gm/100ml 15:00 Florastor (S. PHA 03/11/25 In Process Boulardii) (Florastor) 14:45 Date of Service: Mar 11, 2025 Billing Provider: ESMER ESPOSITO NP Common Visit Codes: [id number] INP/OBS CARE(HIGH) ESMER ESPOSITO NP Mar 11, 2025 14:38
[2025-03-11] MEDS: MAGNESIUM SULFATE 1GM/100ML 100 ML IV SCH (15:47)
[2025-03-11] MEDS: FLORASTOR (S. BOULARDII) 250 MG CAP PO ONE (15:48)
[2025-03-11] MEDS: POTASSIUM CHLORIDE 40 MEQ in SOD CHL 0.45% 1,000 ML IV SCH (16:18)
[2025-03-12 01:02] VITALS: BP 124/83; PULSE 101; RESP 16; TEMP 98.2; O2SAT 98
[2025-03-12 05:00] VITALS: BP 136/86; PULSE 98; RESP 18; TEMP 97.8; O2SAT 98
[2025-03-12 05:32] LABS: Anion Gap 8 (5-15); Carbon Dioxide 22 mmol/L (20-31); Potassium 3.8 mmol/L (3.5-5.1); Sodium 140 mmol/L (136-145)
[2025-03-12 05:38] LABS: BUN/Creatinine Ratio 6.7 (10.0-20.0)
[2025-03-12 05:40] LABS: Blood Urea Nitrogen 6 mg/dL (9-23); Calcium 8.2 mg/dL (8.7-10.4); Chloride 110 mmol/L (98-107); Glucose 148 mg/dL (74-106); Magnesium 1.6 mg/dL (1.6-2.6)
[2025-03-12 08:00] VITALS: PULSE 104
[2025-03-12] MEDS: FLORASTOR (S. BOULARDII) 250 MG CAP PO SCH (08:42)
[2025-03-12 08:49] VITALS: BP 131/85; PULSE 99; RESP 18; TEMP 97.6; O2SAT 97
--- NOTE | 2025-03-12 10:57 | DVHDS2 ---
Discharge Summary Date of Admission Mar 04, 2025 at 22:58 Date of Discharge: Mar 12, 2025 Labs/Diagnostic Data: Laboratory Results Test 03/12/25 04:40 03/09/25 07:50 03/08/25 04:51 03/05/25 03:52 Sodium Level 140 mmol/L (136-145) Potassium Level 3.8 mmol/L (3.5-5.1) Chloride Level 110 mmol/L (98-107) Carbon Dioxide Level 22 mmol/L (20-31) Anion Gap 8 (5-15) Blood Urea Nitrogen 6 mg/dL (9-23) Creatinine 0.90 mg/dL (0.550-1.02) Glomerular Filtration Rate Calc 66 mL/min (>90) BUN/Creatinine Ratio 6.7 (10.0-20.0) Serum Glucose 148 mg/dL (74-106) Calcium Level 8.2 mg/dL (8.7-10.4) Magnesium Level 1.6 mg/dL (1.6-2.6) White Blood Count 9.5 10^3/uL (4.4-10.8) Red Blood Count 4.82 10^6/uL (4.0-5.20) Hemoglobin 13.7 g/dL (12.2-16.2) Hematocrit 41.7 % (36.0-46.0) Mean Corpuscular Volume 86.6 fL (80.0-100.0) Mean Corpuscular Hemoglobin 28.5 pg (28.0-32.0) Mean Corpuscular Hemoglobin Concent 32.9 g/dL (32.0-36.0) Red Cell Distribution Width 13.0 % (11.8-14.3) Platelet Count 119 10^3/uL (140-450) Mean Platelet Volume 8.4 fL (6.9-10.8) Neutrophils (%) (Auto) 61.8 % (37.0-80.0) Lymphocytes (%) (Auto) 27.8 % (10.0-50.0) Monocytes (%) (Auto) 5.9 % (0.0-12.0) Eosinophils (%) (Auto) 4.4 % (0.0-7.0) Basophils (%) (Auto) 0.1 % (0.0-2.0) Neutrophils # (Auto) 5.8 10 ^3/uL (1.6-8.6) Lymphocytes # (Auto) 2.6 10 ^3/uL (0.4-5.4) Monocytes # (Auto) 0.6 10 ^3/uL (0-1.3) Eosinophils # (Auto) 0.4 10 ^3/uL (0-0.8) Basophils # (Auto) 0 10 ^3/uL (0-0.2) Nucleated Red Blood Cells 0.2 % Total Bilirubin 0.4 mg/dL (0.2-1.0) Aspartate Amino Transferase (AST) 35 U/L (13-40) Alanine Aminotransferase (ALT) 31 U/L (7-40) Alkaline Phosphatase 98 U/L (46-116) Total Protein 5.6 g/dL (5.7-8.2) Albumin 3.3 g/dL (3.2-4.8) Differential Total Cells Counted 100.0 (100) Neutrophils % (Manual) 44 (37.0-80.0) Band Neutrophils % (Manual) 8 Lymphocytes % (Manual) 32 (10.0-50.0) Monocytes % (Manual) 11 (0-12) Eosinophils % (Manual) 4 (0-7) Basophils % (Manual) 0 (0.0-2.0) Metamyelocytes % (manual) 0 Myelocytes % (Manual) 1 Promyelocytes % (Manual) 0 Blast Cells % (Manual) 0 Reactive Lymphocytes 0 Platelet Estimate Decreased Stool for White Cells None seen Test 03/05/25 03:35 03/04/25 23:53 03/04/25 13:31 03/04/25 13:12 Large Platelets Few Hemoglobin A1c 6.2 % A1C (<5.7) Urine Color Yellow (Yellow) Urine Clarity Clear (Clear) Urine pH 5.5 (5.0-9.0) Urine Specific [place] 1.024 (1.001-1.035) Urine Protein Trace (Negative) Urine Ketones Negative (Negative) Urine Blood 2+ /uL (Negative) Urine Nitrite Negative (Negative) Urine Bilirubin Negative (Negative) Urine Urobilinogen Normal mg/dL (Negative) Urine Leukocyte Esterase Negative /uL (Negative) Urine RBC 3 /hpf (0 - 4) Urine Microscopic WBC 2 /HPF (0-5) Urine Squamous Epithelial Cells Few /hpf (<5) Urine Bacteria Few /hpf (None Seen) Urine Glucose Normal mg/dL (Normal) Urine Opiates Screen Neg (NEGATIVE) Urine Fentanyl Screen Neg (NEGATIVE) Urine Barbiturates Screen Neg (NEGATIVE) Urine Phencyclidine Screen Neg (NEGATIVE) Urine Amphetamines Screen Neg (NEGATIVE) Urine Benzodiazepines Screen Neg (NEGATIVE) Urine Cocaine Screen Neg (NEGATIVE) Urine Cannabinoids Screen Pos (NEGATIVE) Phosphorus Level 4.0 mg/dL (2.4-5.1) Triglycerides Level 85 mg/dL (< 150) Cholesterol Level 116 mg/dL (< 200) LDL Cholesterol 57 mg/dL (< 100) HDL Cholesterol 44 mg/dL (40-59) Lipase 24 U/L (12-53) Vitamin B12 Level 904 pg/mL (211-911) Vitamin D 25-Hydroxy 41.2 ng/mL (30.0-100) Thyroid Stimulating Hormone (TSH) 0.98 uIU/mL (0.55-4.78) POC Glucose 161 mg/dl (70-106) Other Laboratory Tests 03/12/25 04:40 03/09/25 07:50 Brief Hx & Hospital Course: Final diagnoses: Acute kidney injury and dehydration: Continue IV fluids Dehydration: Bolus 1 L normal saline Add Glucerna Hypomagnesemia: Replace magnesium IV Acute colitis: IV antibiotics Rocephin and Flagyl Neutropenia: Neutropenic precautions Thrombocytopenia monitoring, hold Lovenox Tachycardia: Continue IV fluids, echocardiogram showed normal ejection fraction Protein malnutrition: Glucerna 75-year-old female with a history of pancreatic cancer on chemotherapy who received her 2nd chemotherapy and then became symptomatic with nausea and vomiting and abdominal pain and dehydration She was admitted with a neutropenia and thrombocytopenia and electrolytes imbalance with low potassium and magnesium and acute kidney injury due to dehydration She was given IV fluids and antiemetics and IV antibiotics The CT scan of the abdomen showed acute colitis and therefore she was given Rocephin and Flagyl IV She was not tolerating her diet initially and therefore she was given a clear liquid diet but then when she improved her diet was advanced slowly Her electrolytes were corrected every day as needed Kidney function has improved and recovered She was given Glucerna supplements Today she is feeling better and her potassium level is normal and therefore she will be discharged home Resume the home medications Follow up with her oncologist as scheduled to discuss her treatment options since the patient is saying now she is hesitant about getting more chemo since this happened with both of her chemo treatments and she ended up in the hospital both times Follow up also with her primary care physician as soon as possible Condition at Discharge: Stable Final Diagnosis/Problems List Acute kidney injury and dehydration: Continue IV fluids Dehydration: Bolus 1 L normal saline Add Glucerna Hypomagnesemia: Replace magnesium IV Acute colitis: IV antibiotics Rocephin and Flagyl Neutropenia: Neutropenic precautions Thrombocytopenia monitoring, hold Lovenox Tachycardia: Continue IV fluids, echocardiogram showed normal ejection fraction Protein malnutrition: Glucerna Discharge Disposition: Home SNF Discharge Will this Physician continue t: No Discharge Statement: "Patient was advised to return to the ER or call 911 if any headaches, dizziness, shortness of breath, chest pain, abdominal pain, bleeding, fevers, or worsening of medical condition. Patient was counseled about treatment plan, medications, possible side effects, patientverbalized understanding. All questions were answered to the best of my ability. This discharge took greater then 30 minutes in planning, reviewing documentation, counseling the patient, and discussing with other team members." ASSESSMENT ASSESSMENT Assessment Date of Service: Mar 12, 2025 Billing Provider: RAMA MAGALLON MD Common Visit Codes: NOT BILLABLE RAMA MAGALLON MD Mar 12, 2025 10:56
[2025-03-12] MEDS: MAGNESIUM OXIDE 400 MG TAB PO ONE (11:29)
[2025-03-12 13:00] VITALS: BP 150/75; PULSE 110; RESP 18; TEMP 97.6; O2SAT 97
[2025-03-12 16:54] VITALS: BP 137/86; PULSE 114; RESP 21; TEMP 97.7; O2SAT 99
== END 2025-03-12 19:30 | disposition home or self-care (01) | DRG 393 ==
LOC: ER 12:57 → OVERFLOW 22:58 → TELE-CENTR 03-05 04:10
PROVIDERS: ADMIT Internal Medicine Geriatric Medicine; ATTEND Internal Medicine Geriatric Medicine
DX: K52.1 Toxic gastroenteritis and colitis (principal); N17.0 Acute kidney failure with tubular necrosis; C25.9 Malignant neoplasm of pancreas, unspecified; I47.19 Other supraventricular tachycardia; E44.1 Mild protein-calorie malnutrition; T45.1X5A Adverse effect of antineoplastic and immunosuppressive drugs, initial encounter; E11.22 Type 2 diabetes mellitus with diabetic chronic kidney disease; E86.0 Dehydration; F12.90 Cannabis use, unspecified, uncomplicated; D70.9 Neutropenia, unspecified; K86.89 Other specified diseases of pancreas; E83.42 Hypomagnesemia; E87.6 Hypokalemia; N18.30 Chronic kidney disease, stage 3 unspecified; D69.6 Thrombocytopenia, unspecified; Z85.07 Personal history of malignant neoplasm of pancreas; Z90.411 Acquired partial absence of pancreas; Z79.891 Long term (current) use of opiate analgesic; Z79.899 Other long term (current) drug therapy; Z79.1 Long term (current) use of non-steroidal anti-inflammatories (NSAID); Z80.1 Family history of malignant neoplasm of trachea, bronchus and lung; Y92.89 Other specified places as the place of occurrence of the external cause; Z83.3 Family history of diabetes mellitus; Z68.24 Body mass index [BMI] 24.0-24.9, adult
CPT/HCPCS: 36415; 71045; 74176; 80048; 80053; 80061; 80307; 81001; 82306; 82607; 82962; 83036; 83690; 83735; 84100; 84132; 84443; 85007; 85025; 85027; 85048; 87086; 87493; 93005; 93306; 96374; 96375; 97110; 97163; G0378; J2003; J2405; J3490